=== PATIENT | female | born 1945 | race Caucasian/White ===

== ENCOUNTER 2019-11-21 18:47 | Emergency (ER) | payer MEDICARE ==
[~2019-11-21] VITALS: Ht 172.7 cm; Wt 159.1 kg
[~2019-11-21 18:47] MED LIST: AMIT-189 PO; LEVO125T PO; METF500T PO; PRED10TA23 PO; VALA500T41 PO; ZOLP10TA5 PO
[2019-11-21 19:17] LABS: BASOPHILS # (AUTO) 0.1 X10'3 (0-0.2); BASOPHILS % (AUTO) 0.8 % (0-1); EOSINOPHILS # (AUTO) 0.2 X10'3 (0-0.9); EOSINOPHILS % (AUTO) 2.6 % (0-6); HEMATOCRIT 41.6 % (35.0-45.0); HEMOGLOBIN 13.7 g/dl (12.0-16.0); LYMPHOCYTES # (AUTO) 1.7 X10'3 (1.1-4.8); LYMPHOCYTES % (AUTO) 18.9 % (21-51); MEAN CORPUSCULAR HGB CONC 32.9 g/dL (33.0-36.5); MEAN PLATELET VOLUME 9.2 FL (7.4-10.4); MONOCYTES # (AUTO) 0.8 X10'3 (0-0.9); MONOCYTES % (AUTO) 8.6 % (2-12); NEUTROPHILS # (AUTO) 6.1 X10'3 (1.8-7.7); NEUTROPHILS % (AUTO) 69.1 % (42-75); PLATELET COUNT 199 X10'3 (140-440); RED BLOOD COUNT 4.42 X10'6 (4.20-5.60); RED CELL DISTRIBUTION WIDTH 14.3 % (11.5-14.5); WHITE BLOOD COUNT 8.8 X10'3 (4.5-11.0)
[2019-11-21 19:27] LABS: CLARITY,URINE CLEAR (Clear); COLOR,URINE YELLOW (Yellow); GLUCOSE, URINE NEGATIVE (Neg); KETONES,URINE NEGATIVE (Neg); LEUKOCYTE ESTERASE ,URINE NEGATIVE (Neg); NITRITES, URINE NEGATIVE (Neg); OCCULT BLOOD,URINE NEGATIVE (Neg); PROTEIN,URINE NEGATIVE (Neg)
[2019-11-21 19:31] LABS: UA COLLECTION TYPE STRAIGHT CATH
[2019-11-21] MEDS ORDERED: fentaNYL/PF 50MCG/1 ML 2ML syringe IV ONE (19:35)
[2019-11-21 19:39] LABS: ALANINE AMINOTRANSFERASE 19 U/L (12-78); ALBUMIN/GLOBULIN RATIO 0.8 (1.1-1.5); ALKALINE PHOSPHATASE 111 IU/L (46-116); ANION GAP 4 (8-16); ASPARTATE AMINO TRANSFERASE 16 U/L (10-37); BLOOD UREA NITROGEN 11 MG/DL (7-18); BUN/CREATININE RATIO 12.4 (6.6-38.0); CALCIUM 9.3 MG/DL (8.5-10.1); CHLORIDE 105 MMOL/L (99-107); CREATININE 0.89 MG/DL (0.40-0.90); GLUCOSE 143 MG/DL (70-104); SODIUM 142 MMOL/L (135-145); TOTAL CARBON DIOXIDE 33.4 MMOL/L (24-32); TOTAL PROTEIN 6.8 G/DL (6.4-8.2); eGFR 62 ML/MIN
[2019-11-21] MEDS ORDERED: iohexol 350MG/ML 100ml bottle IV ONE (20:30)
[2019-11-21 20:43] LABS: PARTIAL THROMBOPLASTIN TIME 28 SECONDS (22-32)
[2019-11-21] MEDS ORDERED: HYDROcodone/acetaminophen 10/325mg tab PO ONE (21:20)
[2019-11-21] MEDS ORDERED: HYDR-4353 PO (21:47)
[2019-11-21 22:07] VITALS: BP 144/99
== END 2019-11-21 21:50 | disposition home or self-care (01) ==
LOC: ER 18:48
DX: J90 Pleural effusion, not elsewhere classified (principal); R10.31 Right lower quadrant pain; I48.91 Unspecified atrial fibrillation; I10 Essential (primary) hypertension; J45.909 Unspecified asthma, uncomplicated; E11.9 Type 2 diabetes mellitus without complications; Z90.49 Acquired absence of other specified parts of digestive tract; Z90.710 Acquired absence of both cervix and uterus; Z98.890 Other specified postprocedural states; Z88.5 Allergy status to narcotic agent; Z79.899 Other long term (current) drug therapy
CPT/HCPCS: 36415; 71045; 71275; 74176; 80053; 81003; 83605; 84145; 85025; 85610; 85730; 87040; 93005; 96374; 99285; J3010; Q9967; 87077; 87186

== ENCOUNTER 2020-10-14 18:24 | Emergency (ER) | payer BC, MEDICAID ==
[~2020-10-14] VITALS: Ht 172.7 cm; Wt 147.8 kg
--- NOTE | 2020-10-14 18:52 | NUR ---
PT DIDNT WANT GURJARAD, REQUEST TO STAY IN W/C.
[2020-10-14] MEDS ORDERED: SELE120S3 TOP (21:01)
[2020-10-14] MEDS ORDERED: TERB250T4 PO (21:01)
[2020-10-14 21:09] VITALS: BP 120/83
== END 2020-10-14 21:11 | disposition home or self-care (01) ==
LOC: ER 18:24
DX: B35.0 Tinea barbae and tinea capitis (principal); I48.91 Unspecified atrial fibrillation; I10 Essential (primary) hypertension; J45.909 Unspecified asthma, uncomplicated; E11.9 Type 2 diabetes mellitus without complications; Z90.49 Acquired absence of other specified parts of digestive tract; Z90.710 Acquired absence of both cervix and uterus; Z98.890 Other specified postprocedural states; Z85.3 Personal history of malignant neoplasm of breast; Z88.8 Allergy status to other drugs, medicaments and biological substances; Z88.5 Allergy status to narcotic agent; Z79.84 Long term (current) use of oral hypoglycemic drugs; Z79.899 Other long term (current) drug therapy
CPT/HCPCS: 99284

== ENCOUNTER 2021-09-07 16:04 | Inpatient (IN) | payer MEDICARE, MEDICAID ==
[~2021-09-07] VITALS: Ht 172.7 cm; Wt 153.6 kg
[~2021-09-07 16:04] MED LIST changes: +SELE120S3 TOP
[2021-09-07 17:43] LABS: BASOPHILS % (AUTO) 0.7 % (0-1); EOSINOPHILS # (AUTO) 0.3 X10'3 (0-0.9); EOSINOPHILS % (AUTO) 3.6 % (0-6); HEMATOCRIT 39.9 % (35.0-45.0); HEMOGLOBIN 13.1 g/dl (12.0-16.0); LYMPHOCYTES # (AUTO) 1.3 X10'3 (1.1-4.8); LYMPHOCYTES % (AUTO) 18.2 % (21-51); MEAN CORPUSCULAR HEMOGLOBIN 30.6 PG (27.0-31.0); MEAN CORPUSCULAR HGB CONC 32.7 g/dL (33.0-36.5); MEAN CORPUSCULAR VOLUME 93.5 FL (78-98); MEAN PLATELET VOLUME 8.5 FL (7.4-10.4); MONOCYTES # (AUTO) 0.8 X10'3 (0-0.9); MONOCYTES % (AUTO) 10.4 % (2-12); NEUTROPHILS # (AUTO) 4.9 X10'3 (1.8-7.7); NEUTROPHILS % (AUTO) 67.1 % (42-75); PLATELET COUNT 201 X10'3 (140-440); RED BLOOD COUNT 4.27 X10'6 (4.20-5.60); RED CELL DISTRIBUTION WIDTH 15.4 % (11.5-14.5); WHITE BLOOD COUNT 7.2 X10'3 (4.5-11.0)
[2021-09-07 17:55] LABS: D-DIMER 1.95 MG/L FEU (0-0.50)
[2021-09-07 17:57] LABS: ALANINE AMINOTRANSFERASE 14 U/L (12-78); ALBUMIN 2.9 G/DL (3.4-5.0); ALBUMIN/GLOBULIN RATIO 0.8 (1.1-1.5); ALKALINE PHOSPHATASE 86 IU/L (46-116); ANION GAP 5 (8-16); ASPARTATE AMINO TRANSFERASE 13 U/L (10-37); BILIRUBIN,TOTAL 0.5 MG/DL (0.1-1.0); BLOOD UREA NITROGEN 10 MG/DL (7-18); BUN/CREATININE RATIO 13.5 (6.6-38.0); CALCIUM 8.8 MG/DL (8.5-10.1); CHLORIDE 105 MMOL/L (99-107); CREATININE 0.74 MG/DL (0.40-0.90); GLUCOSE 105 MG/DL (70-104); SODIUM 144 MMOL/L (135-145); TOTAL CARBON DIOXIDE 34.3 MMOL/L (24-32); TOTAL PROTEIN 6.5 G/DL (6.4-8.2); eGFR 77 ML/MIN
[2021-09-07] MEDS ORDERED: iohexol 350MG/ML 100ml bottle IV ONE (18:03)
[2021-09-07] MEDS ORDERED: furosemide 10 MG/1 ML 10ml inj IV ONE (20:05)
[2021-09-07] MEDS ORDERED: potassium Cl 20 mEq SR tablet PO PRN ×2 (23:25)
[2021-09-07] MEDS ORDERED: DEXTROSE 15 GM of carb/4 tabs (each vial/BOTTLE has 4 tablets) PO PRN ×2 (23:25)
[2021-09-07] MEDS ORDERED: dextrose 50%-water 50ml dispensing syringe IV PRN ×2 (23:25)
[2021-09-07] MEDS ORDERED: glucagon, human recombinant 1mg kit SUBCUT PRN (23:25)
[2021-09-07] MEDS ORDERED: insulin Lispro (HumaLOG) vial - multi-dose SQ SCH (23:25)
[2021-09-07] MEDS ORDERED: ondansetron/PF 4mg/2ml inj IV PRN (23:25)
[2021-09-07] MEDS ORDERED: potassium CL 10mEq/100ml bag 100 ML IV PRN (23:25)
[2021-09-07] MEDS ORDERED: magnesium 4gm in 100ml NS 100 ML IV PRN (23:25)
[2021-09-07] MEDS ORDERED: acetaminophen 325mg tablet PO PRN (23:25)
[2021-09-07] MEDS ORDERED: magnesium 2GM in 50ml NS 50 ML IV PRN (23:25)
[2021-09-07] MEDS ORDERED: MESSAGE TO PHARMACY PO ONE (23:25)
[2021-09-07] MEDS ORDERED: magnesium Cl slow-release 64mg tablet PO PRN (23:25)
[2021-09-07] MEDS ORDERED: PERFLUTREN PROTEIN-A MICROSPHR (Optison) 0.22 MG/ML 3ML VIAL IV PRN (23:25)
[2021-09-08 03:21] LABS: BASOPHILS % (AUTO) 0.3 % (0-1); EOSINOPHILS # (AUTO) 0.3 X10'3 (0-0.9); EOSINOPHILS % (AUTO) 4.5 % (0-6); HEMATOCRIT 40.4 % (35.0-45.0); HEMOGLOBIN 13.1 g/dl (12.0-16.0); LYMPHOCYTES # (AUTO) 1.2 X10'3 (1.1-4.8); LYMPHOCYTES % (AUTO) 18.3 % (21-51); MEAN CORPUSCULAR HGB CONC 32.4 g/dL (33.0-36.5); MEAN CORPUSCULAR VOLUME 92.5 FL (78-98); MEAN PLATELET VOLUME 8.3 FL (7.4-10.4); MONOCYTES # (AUTO) 0.6 X10'3 (0-0.9); MONOCYTES % (AUTO) 9.5 % (2-12); NEUTROPHILS # (AUTO) 4.5 X10'3 (1.8-7.7); NEUTROPHILS % (AUTO) 67.4 % (42-75); PLATELET COUNT 189 X10'3 (140-440); RED BLOOD COUNT 4.36 X10'6 (4.20-5.60); RED CELL DISTRIBUTION WIDTH 15.4 % (11.5-14.5); WHITE BLOOD COUNT 6.6 X10'3 (4.5-11.0)
[2021-09-08 03:42] LABS: ALANINE AMINOTRANSFERASE 15 U/L (12-78); ALKALINE PHOSPHATASE 92 IU/L (46-116); ANION GAP 7 (8-16); ASPARTATE AMINO TRANSFERASE 12 U/L (10-37); BILIRUBIN,TOTAL 0.7 MG/DL (0.1-1.0); BLOOD UREA NITROGEN 9 MG/DL (7-18); BUN/CREATININE RATIO 11.7 (6.6-38.0); CALCIUM 8.6 MG/DL (8.5-10.1); CHLORIDE 102 MMOL/L (99-107); CREATININE 0.77 MG/DL (0.40-0.90); GLUCOSE 127 MG/DL (70-104); MAGNESIUM 1.9 MG/DL (1.5-2.4); POTASSIUM 4.2 MMOL/L (3.5-5.1); SODIUM 146 MMOL/L (135-145); TOTAL PROTEIN 6.1 G/DL (6.4-8.2); eGFR 73 ML/MIN
[2021-09-08] MEDS ORDERED: GABA-530 PO (04:55)
[2021-09-08] MEDS ORDERED: HYDR-3686 PO (04:55)
[2021-09-08] MEDS ORDERED: BUDE10.2 PO (04:55)
[2021-09-08] MEDS ORDERED: LEVO175T7 PO (04:55)
[2021-09-08] MEDS ORDERED: SOTA80TA10 PO (04:55)
[2021-09-08] MEDS ORDERED: DICL75TA28 PO (04:55)
[2021-09-08] MEDS ORDERED: APIX5TAB3 PO (04:55)
[2021-09-08] MEDS: K and/or MAG REPLACEMENT MC SCH ×2 (08:00→20:00)
[2021-09-08] MEDS: apixaban 5mg tablet PO SCH ×2 (08:25→21:29)
--- NOTE | 2021-09-08 08:56 | NUR ---
called pharmacy regarding med due betapace.
[2021-09-08] MEDS: sotalol 80mg tablet PO SCH ×2 (09:08→21:26)
[2021-09-08] MEDS ORDERED: baclofen 10mg tablet PO PRN (09:40)
[2021-09-08] MEDS: furosemide 40mg/4ml inj IV SCH ×2 (10:23→21:26)
--- NOTE | 2021-09-08 10:45 | NUR ---
Dr. Caldwell at bedside.
--- NOTE | 2021-09-08 12:25 | NUR ---
PT ON A HOSPITAL BED, AWAKE,VISITOR AT BEDSIDE.
[2021-09-08] MEDS ORDERED: POTA-192 PO (12:32)
[2021-09-08] MEDS ORDERED: DILT180C49 PO (12:33)
[2021-09-08] MEDS ORDERED: FURO20TA4 PO (12:33)
[2021-09-08] MEDS ORDERED: FERR-29 PO (12:36)
[2021-09-08] MEDS ORDERED: ASPI-103 PO (12:36)
[2021-09-08] MEDS ORDERED: ZINC50TA67 PO (12:38)
[2021-09-08] MEDS ORDERED: ACET-1084 PO (12:38)
[2021-09-08] MEDS ORDERED: VITA-268 PO (12:40)
[2021-09-08] MEDS ORDERED: CHOL200074 PO (12:40)
[2021-09-08] MEDS ORDERED: CALC600T62 PO (12:44)
[2021-09-08] MEDS ORDERED: MAGN250T11 PO (12:44)
[2021-09-08] MEDS ORDERED: UBID50TA3 PO (12:44)
[2021-09-08] MEDS ORDERED: RED600CA2 PO (12:44)
[2021-09-08] MEDS ORDERED: ondansetron 4mg rapidly disintigrating tab PO PRN (16:25)
[2021-09-08 18:00] VITALS: BP 125/53
--- NOTE | 2021-09-08 18:55 | NUR ---
Patient in room PCU 3017. I have received report from [facility] and had the opportunity to ask questions and assume patient care.
[2021-09-08] MEDS: insulin glargine (Lantus) pen - multi-dose SQ SCH (21:00)
[2021-09-08] MEDS: zolpidem 5mg tablet PO PRN (21:27)
[2021-09-08 22:00] VITALS: BP 136/75
[2021-09-09 02:00] VITALS: BP 99/75
[2021-09-09 06:00] VITALS: BP 131/69
--- NOTE | 2021-09-09 07:02 | NUR ---
Problems reprioritized. Patient report given, questions answered & plan of care reviewed with Inessa PAIGE.
[2021-09-09 07:21] LABS: ALANINE AMINOTRANSFERASE 14 U/L (12-78); ALBUMIN/GLOBULIN RATIO 0.8 (1.1-1.5); ALKALINE PHOSPHATASE 96 IU/L (46-116); ANION GAP 4 (8-16); ASPARTATE AMINO TRANSFERASE 23 U/L (10-37); BILIRUBIN,TOTAL 0.7 MG/DL (0.1-1.0); BLOOD UREA NITROGEN 10 MG/DL (7-18); BUN/CREATININE RATIO 15.2 (6.6-38.0); CALCIUM 8.8 MG/DL (8.5-10.1); CHLORIDE 104 MMOL/L (99-107); CREATININE 0.66 MG/DL (0.40-0.90); GLUCOSE 126 MG/DL (70-104); MAGNESIUM 2.1 MG/DL (1.5-2.4); POTASSIUM 4.5 MMOL/L (3.5-5.1); SODIUM 145 MMOL/L (135-145); TOTAL CARBON DIOXIDE 37.4 MMOL/L (24-32); TOTAL PROTEIN 6.8 G/DL (6.4-8.2); eGFR 88 ML/MIN
[2021-09-09 07:25] LABS: BASOPHILS % (AUTO) 0.7 % (0-1); EOSINOPHILS # (AUTO) 0.3 X10'3 (0-0.9); EOSINOPHILS % (AUTO) 4.5 % (0-6); HEMATOCRIT 43.2 % (35.0-45.0); HEMOGLOBIN 13.7 g/dl (12.0-16.0); LYMPHOCYTES # (AUTO) 1.2 X10'3 (1.1-4.8); LYMPHOCYTES % (AUTO) 19.5 % (21-51); MEAN CORPUSCULAR HEMOGLOBIN 29.7 PG (27.0-31.0); MEAN CORPUSCULAR HGB CONC 31.7 g/dL (33.0-36.5); MEAN CORPUSCULAR VOLUME 93.6 FL (78-98); MEAN PLATELET VOLUME 8.8 FL (7.4-10.4); MONOCYTES # (AUTO) 0.6 X10'3 (0-0.9); MONOCYTES % (AUTO) 9.4 % (2-12); NEUTROPHILS % (AUTO) 65.9 % (42-75); PLATELET COUNT 178 X10'3 (140-440); RED BLOOD COUNT 4.61 X10'6 (4.20-5.60); RED CELL DISTRIBUTION WIDTH 15.4 % (11.5-14.5); WHITE BLOOD COUNT 6.1 X10'3 (4.5-11.0)
[2021-09-09] MEDS: K and/or MAG REPLACEMENT MC SCH ×2 (08:00→19:31)
[2021-09-09] MEDS ORDERED: PERFLUTREN PROTEIN-A MICROSPHR (Optison) 0.22 MG/ML 3ML VIAL IV PRN (08:15)
[2021-09-09] MEDS: furosemide 40mg/4ml inj IV SCH ×2 (08:17→19:59)
[2021-09-09] MEDS: sotalol 80mg tablet PO SCH ×2 (08:17→19:59)
[2021-09-09] MEDS: apixaban 5mg tablet PO SCH ×2 (08:17→19:59)
[2021-09-09 11:00] VITALS: BP 124/62
--- NOTE | 2021-09-09 11:59 | NUR ---
O2 Sat at rest on room air:_86__% If below 89%: Recovery O2 Sat at rest on _2__LPM:___%:_94__% via__nasal cannula (mask/nasal cannula, etc..) No further documentation is necessary. If O2 Sat did not drop below 89% on room air,ambulate patient on room air. O2 Sat while ambulating on room air:___% Recovery O2 Sat while ambulating on ___LPM:___% No further documentation is necessary. If patient does not drop below 89% while ambulating, he/she does not qualify for home O2.
[2021-09-09] MEDS: magnesium hydroxide 30ml (MOM) UD suspension PO PRN (15:38)
[2021-09-09 16:00] VITALS: BP 109/61
[2021-09-09 18:00] VITALS: BP 115/64
--- NOTE | 2021-09-09 18:16 | NUR ---
Problems reprioritized. Patient report given, questions answered & plan of care reviewed with Prudence RN.
--- NOTE | 2021-09-09 18:25 | NUR ---
Patient in room PCU 3017. I have received report from KAY PAIGE and had the opportunity to ask questions and assume patient care.
[2021-09-09] MEDS: docusate sod 100mg capsule PO SCH (19:59)
[2021-09-09] MEDS: insulin glargine (Lantus) pen - multi-dose SQ SCH (21:00)
[2021-09-09] MEDS: zolpidem 5mg tablet PO PRN (21:18)
[2021-09-09 22:00] VITALS: BP 154/86
[2021-09-10] VITALS (38 sets, daily range): BP systolic 108–158; BP diastolic 48–88
--- NOTE | 2021-09-10 06:19 | NUR ---
Problems reprioritized. Patient report given, questions answered & plan of care reviewed with KAY PAIGE.
[2021-09-10 06:51] LABS: BASOPHILS # (AUTO) 0.1 X10'3 (0-0.2); BASOPHILS % (AUTO) 0.9 % (0-1); EOSINOPHILS # (AUTO) 0.2 X10'3 (0-0.9); EOSINOPHILS % (AUTO) 3.2 % (0-6); HEMATOCRIT 42.2 % (35.0-45.0); HEMOGLOBIN 13.9 g/dl (12.0-16.0); LYMPHOCYTES # (AUTO) 1.2 X10'3 (1.1-4.8); LYMPHOCYTES % (AUTO) 19.3 % (21-51); MEAN CORPUSCULAR HEMOGLOBIN 30.7 PG (27.0-31.0); MEAN CORPUSCULAR HGB CONC 33.1 g/dL (33.0-36.5); MEAN PLATELET VOLUME 8.6 FL (7.4-10.4); MONOCYTES # (AUTO) 0.6 X10'3 (0-0.9); MONOCYTES % (AUTO) 9.9 % (2-12); NEUTROPHILS # (AUTO) 4.1 X10'3 (1.8-7.7); NEUTROPHILS % (AUTO) 66.7 % (42-75); PLATELET COUNT 181 X10'3 (140-440); RED BLOOD COUNT 4.54 X10'6 (4.20-5.60); RED CELL DISTRIBUTION WIDTH 14.9 % (11.5-14.5); WHITE BLOOD COUNT 6.2 X10'3 (4.5-11.0)
[2021-09-10 07:24] LABS: ALANINE AMINOTRANSFERASE 18 U/L (12-78); ALBUMIN/GLOBULIN RATIO 0.8 (1.1-1.5); ALKALINE PHOSPHATASE 99 IU/L (46-116); ANION GAP 6 (8-16); ASPARTATE AMINO TRANSFERASE 20 U/L (10-37); BILIRUBIN,TOTAL 0.8 MG/DL (0.1-1.0); BLOOD UREA NITROGEN 10 MG/DL (7-18); BUN/CREATININE RATIO 16.9 (6.6-38.0); CALCIUM 8.5 MG/DL (8.5-10.1); CHLORIDE 103 MMOL/L (99-107); CREATININE 0.59 MG/DL (0.40-0.90); GLUCOSE 124 MG/DL (70-104); MAGNESIUM 2.2 MG/DL (1.5-2.4); SODIUM 147 MMOL/L (135-145); TOTAL CARBON DIOXIDE 38.3 MMOL/L (24-32); TOTAL PROTEIN 6.9 G/DL (6.4-8.2); eGFR > 90 ML/MIN
[2021-09-10] MEDS ORDERED: morphine 10mg/ml inj. IV ONE (07:50)
[2021-09-10] MEDS ORDERED: MIDAZolam 5mg/ml 2ml vial IV ONE (07:50)
[2021-09-10] MEDS: K and/or MAG REPLACEMENT MC SCH ×2 (08:00→20:00)
[2021-09-10] MEDS: sotalol 80mg tablet PO SCH (08:00)
[2021-09-10] MEDS ORDERED: midazolam 1 mg/ML 2ml injection IV ONE (08:10)
[2021-09-10] MEDS ORDERED: fentaNYL/PF 50MCG/1 ML 2ML syringe IV ONE (08:10)
[2021-09-10] MEDS ORDERED: amiodarone 50MG/ML inj IV ONE (09:05)
[2021-09-10] MEDS ORDERED: amiodarone 150mg/dext, iso-os 100 ML IV ONE (09:05)
[2021-09-10] MEDS: furosemide 40mg/4ml inj IV SCH ×2 (10:21→21:19)
--- NOTE | 2021-09-10 11:33 | NUR ---
while almost finished monitoring patient after cardio version, she started to have intermittent periods of apnea where she needs to be woken up. This stated about 15 minutes ago, I will wait with patient to see if she improves. Addendum: 09/10/21 at 1157 by Chandrika Aguilar RN patient doing well, no more apnea periods so far.
[2021-09-10] MEDS: apixaban 5mg tablet PO SCH ×2 (13:20→21:16)
[2021-09-10] MEDS: docusate sod 100mg capsule PO SCH ×2 (13:20→21:07)
--- NOTE | 2021-09-10 18:20 | NUR ---
Problems reprioritized. Patient report given, questions answered & plan of care reviewed with Caroline PAIGE.
[2021-09-10] MEDS: carvedilol 6.25mg tablet PO SCH ×2 (20:00→22:43)
[2021-09-10] MEDS: amiodarone 200mg tablet PO SCH (20:00)
[2021-09-10] MEDS: insulin glargine (Lantus) pen - multi-dose SQ SCH (21:00)
[2021-09-10] MEDS: magnesium hydroxide 30ml (MOM) UD suspension PO PRN (21:06)
[2021-09-10] MEDS: zolpidem 5mg tablet PO PRN (21:08)
[2021-09-11 02:00] VITALS: BP 128/43
[2021-09-11 06:00] VITALS: BP 126/48
--- NOTE | 2021-09-11 06:09 | NUR ---
Report to day shift RN.
[2021-09-11 06:30] LABS: BASOPHILS % (AUTO) 0.4 % (0-1); EOSINOPHILS # (AUTO) 0.1 X10'3 (0-0.9); EOSINOPHILS % (AUTO) 1.4 % (0-6); HEMATOCRIT 40.6 % (35.0-45.0); HEMOGLOBIN 13.5 g/dl (12.0-16.0); LYMPHOCYTES # (AUTO) 0.5 X10'3 (1.1-4.8); LYMPHOCYTES % (AUTO) 8.1 % (21-51); MEAN CORPUSCULAR HEMOGLOBIN 30.4 PG (27.0-31.0); MEAN CORPUSCULAR HGB CONC 33.3 g/dL (33.0-36.5); MEAN CORPUSCULAR VOLUME 91.3 FL (78-98); MEAN PLATELET VOLUME 8.6 FL (7.4-10.4); MONOCYTES # (AUTO) 0.6 X10'3 (0-0.9); MONOCYTES % (AUTO) 10.4 % (2-12); NEUTROPHILS # (AUTO) 4.7 X10'3 (1.8-7.7); NEUTROPHILS % (AUTO) 79.7 % (42-75); PLATELET COUNT 147 X10'3 (140-440); RED BLOOD COUNT 4.45 X10'6 (4.20-5.60); RED CELL DISTRIBUTION WIDTH 14.9 % (11.5-14.5); WHITE BLOOD COUNT 5.9 X10'3 (4.5-11.0)
[2021-09-11 06:33] LABS: ALANINE AMINOTRANSFERASE 18 U/L (12-78); ALBUMIN 2.9 G/DL (3.4-5.0); ALBUMIN/GLOBULIN RATIO 0.8 (1.1-1.5); ALKALINE PHOSPHATASE 90 IU/L (46-116); ASPARTATE AMINO TRANSFERASE 23 U/L (10-37); BILIRUBIN,TOTAL 1.2 MG/DL (0.1-1.0); BLOOD UREA NITROGEN 12 MG/DL (7-18); BUN/CREATININE RATIO 15.6 (6.6-38.0); CALCIUM 8.7 MG/DL (8.5-10.1); CHLORIDE 96 MMOL/L (99-107); CREATININE 0.77 MG/DL (0.40-0.90); GLUCOSE 164 MG/DL (70-104); MAGNESIUM 2.2 MG/DL (1.5-2.4); POTASSIUM 3.8 MMOL/L (3.5-5.1); SODIUM 141 MMOL/L (135-145); TOTAL PROTEIN 6.7 G/DL (6.4-8.2); eGFR 73 ML/MIN
[2021-09-11 06:43] LABS: ANION GAP 6 (8-16); TOTAL CARBON DIOXIDE 38.7 MMOL/L (24-32)
[2021-09-11] MEDS: carvedilol 6.25mg tablet PO SCH (07:43)
[2021-09-11] MEDS: docusate sod 100mg capsule PO SCH (07:44)
[2021-09-11] MEDS: amiodarone 200mg tablet PO SCH (07:44)
[2021-09-11] MEDS: furosemide 40mg/4ml inj IV SCH (07:44)
[2021-09-11] MEDS: apixaban 5mg tablet PO SCH (07:44)
[2021-09-11] MEDS: K and/or MAG REPLACEMENT MC SCH (08:00)
[2021-09-11 11:00] VITALS: BP 116/46
[2021-09-11] MEDS ORDERED: FURO20TA4 PO (13:31)
[2021-09-11] MEDS ORDERED: ZOLP5TAB8 PO (13:31)
[2021-09-11] MEDS ORDERED: CARV6.253 PO (13:31)
[2021-09-11] MEDS ORDERED: AMIO200T67 PO (13:31)
[2021-09-11] MEDS ORDERED: AMIO200T61 PO ×2 (13:31)
--- NOTE | 2021-09-11 14:20 | NUR ---
home medications and prescriptions were given and explained to patient prior to dishcarge. Stable for discharge as per MD. PIV discontinued with iv cannula tip complete and intact.
== END 2021-09-11 14:46 | disposition home health service (06) | DRG 291 ==
LOC: ER 16:04 → ED HOLD 23:24 → EDBEDREQ 09-08 01:55 → PCU 3S 09-08 16:49
PROVIDERS: ADMIT Internal Medicine; ATTEND Family Medicine
PROC: B32T1ZZ Computerized Tomography (CT Scan) of Left Pulmonary Artery using Low Osmolar Contrast (ICD-10-PCS; 2021-09-07)
PROC: B3201ZZ Computerized Tomography (CT Scan) of Thoracic Aorta using Low Osmolar Contrast (ICD-10-PCS; 2021-09-07)
PROC: B32S1ZZ Computerized Tomography (CT Scan) of Right Pulmonary Artery using Low Osmolar Contrast (ICD-10-PCS; 2021-09-07)
PROC: 5A2204Z Restoration of Cardiac Rhythm, Single (ICD-10-PCS; principal; 2021-09-10)
PROC: B24CZZ4 Ultrasonography of Pericardium, Transesophageal (ICD-10-PCS; 2021-09-10)
DX: I11.0 Hypertensive heart disease with heart failure (principal); J96.01 Acute respiratory failure with hypoxia; I50.31 Acute diastolic (congestive) heart failure; I48.19 Other persistent atrial fibrillation; I47.1 Supraventricular tachycardia; Z68.43 Body mass index [BMI] 50.0-59.9, adult; E87.0 Hyperosmolality and hypernatremia; G93.40 Encephalopathy, unspecified; I27.20 Pulmonary hypertension, unspecified; E66.01 Morbid (severe) obesity due to excess calories; Z66 Do not resuscitate; Z20.822 Contact with and (suspected) exposure to COVID-19; E11.9 Type 2 diabetes mellitus without complications; E78.5 Hyperlipidemia, unspecified; E89.0 Postprocedural hypothyroidism; I09.9 Rheumatic heart disease, unspecified; J45.909 Unspecified asthma, uncomplicated; R25.2 Cramp and spasm; G47.33 Obstructive sleep apnea (adult) (pediatric); M17.0 Bilateral primary osteoarthritis of knee; I07.1 Rheumatic tricuspid insufficiency; R29.6 Repeated falls; Z79.01 Long term (current) use of anticoagulants; Z82.49 Family history of ischemic heart disease and other diseases of the circulatory system; Z85.3 Personal history of malignant neoplasm of breast; Z87.891 Personal history of nicotine dependence; Z90.11 Acquired absence of right breast and nipple; Z90.49 Acquired absence of other specified parts of digestive tract; Z90.710 Acquired absence of both cervix and uterus; Z91.81 History of falling; Z99.3 Dependence on wheelchair; Z88.5 Allergy status to narcotic agent; Z88.8 Allergy status to other drugs, medicaments and biological substances; Z79.899 Other long term (current) drug therapy; Z98.42 Cataract extraction status, left eye; Z98.41 Cataract extraction status, right eye
CPT/HCPCS: 36415; 71045; 71275; 80053; 82948; 83036; 83735; 83880; 84443; 84484; 85025; 85379; 87081; 87635; 93005; 93312; 94799; 96374; 97161; 97530; 99285; C9803; G0378; J0282; J1815; J1940; J2250; J3010; Q9967

== ENCOUNTER 2021-10-30 06:32 | Day surgery (SDC) | payer MEDICARE, MEDICAID ==
[2021-10-29 15:17] LABS: BASOPHILS # (AUTO) 0.1 X10'3 (0-0.2); BASOPHILS % (AUTO) 0.7 % (0-1); EOSINOPHILS # (AUTO) 0.2 X10'3 (0-0.9); EOSINOPHILS % (AUTO) 2.6 % (0-6); HEMATOCRIT 41.7 % (35.0-45.0); HEMOGLOBIN 13.6 g/dl (12.0-16.0); LYMPHOCYTES # (AUTO) 1.1 X10'3 (1.1-4.8); LYMPHOCYTES % (AUTO) 15.4 % (21-51); MEAN CORPUSCULAR HEMOGLOBIN 30.1 PG (27.0-31.0); MEAN CORPUSCULAR HGB CONC 32.6 g/dL (33.0-36.5); MEAN CORPUSCULAR VOLUME 92.5 FL (78-98); MEAN PLATELET VOLUME 9.3 FL (7.4-10.4); MONOCYTES # (AUTO) 0.6 X10'3 (0-0.9); MONOCYTES % (AUTO) 8.8 % (2-12); NEUTROPHILS # (AUTO) 5.1 X10'3 (1.8-7.7); NEUTROPHILS % (AUTO) 72.5 % (42-75); PLATELET COUNT 120 X10'3 (140-440); RED BLOOD COUNT 4.51 X10'6 (4.20-5.60); RED CELL DISTRIBUTION WIDTH 14.9 % (11.5-14.5)
[2021-10-29 15:26] LABS: ALBUMIN 2.9 G/DL (3.4-5.0); ANION GAP 0 (8-16); BLOOD UREA NITROGEN 10 MG/DL (7-18); BUN/CREATININE RATIO 14.1 (6.6-38.0); CALCIUM 8.8 MG/DL (8.5-10.1); CHLORIDE 105 MMOL/L (99-107); CREATININE 0.71 MG/DL (0.40-0.90); GLUCOSE 86 MG/DL (70-104); POTASSIUM 3.8 MMOL/L (3.5-5.1); SODIUM 144 MMOL/L (135-145); TOTAL CARBON DIOXIDE 39.4 MMOL/L (24-32); eGFR 80 ML/MIN
[~2021-10-30] VITALS: Ht 172.7 cm; Wt 139.8 kg
[2021-10-30] VITALS (28 sets, daily range): BP systolic 91–133; BP diastolic 48–82
[~2021-10-30 06:32] MED LIST changes: +ACET-1084 PO; +AMIO200T67 PO; +APIX5TAB3 PO; +CALC600T62 PO; +CARV6.253 PO; +CHOL200074 PO; +FERR-29 PO; +FURO20TA4 PO; +GABA-530 PO; +HYDR-3686 PO; -LEVO125T PO; +LEVO175T7 PO; +MAGN250T11 PO; +POTA-192 PO; -PRED10TA23 PO; +RED600CA2 PO; -SELE120S3 TOP; +UBID50TA3 PO; -VALA500T41 PO; +VITA-268 PO; +ZINC50TA67 PO; -ZOLP10TA5 PO; +ZOLP5TAB8 PO
[2021-10-30] MEDS ORDERED: MIDAZolam 1mg/ml 10ml vial IV ONE ×2 (07:05→07:25)
[2021-10-30] MEDS ORDERED: fentaNYL/PF 50MCG/1 ML 2ML syringe IV ONE (07:05)
[2021-10-30] MEDS ORDERED: amiodarone 50MG/ML inj IV ONE (07:15)
[2021-10-30] MEDS ORDERED: diphenhydrAMINE 50 mg/ml inj IV ONE (07:15)
[2021-10-30] MEDS ORDERED: atropine 0.1mg/ml 10ml syringe IV ONE ×4 (07:25→10:00)
[2021-10-30] MEDS ORDERED: LORazepam 0.5 MG tablet PO ONE (07:25)
[2021-10-30] MEDS ORDERED: FURO40TA4 PO (07:33)
[2021-10-30] MEDS ORDERED: AMIO200T61 PO (07:33)
[2021-10-30] MEDS ORDERED: CARV6.253 PO (07:33)
[2021-10-30] MEDS ORDERED: ZOLP10TA PO (07:33)
[2021-10-30] MEDS ORDERED: VITC500T PO (07:38)
[2021-10-30] MEDS ORDERED: BUDE10.27 (07:38)
[2021-10-30] MEDS ORDERED: OMEG1CAP2 (07:38)
[2021-10-30] MEDS ORDERED: amiodarone 150mg/dext, iso-os 100 ML IV ONE (07:40)
[2021-10-30] MEDS ORDERED: diphenhydrAMINE 25mg capsule PO ONE ×2 (07:45)
[2021-10-30] MEDS ORDERED: atropine 1 MG/1 ML vial IV ONE (09:50)
== END 2021-10-30 11:15 | disposition home or self-care (01) ==
LOC: SSTAY O 06:32
PROVIDERS: ATTEND Internal Medicine Cardiovascular Disease
DX: I48.0 Paroxysmal atrial fibrillation (principal); E11.9 Type 2 diabetes mellitus without complications; E66.9 Obesity, unspecified; Z68.43 Body mass index [BMI] 50.0-59.9, adult; J45.909 Unspecified asthma, uncomplicated; F32.A Depression, unspecified; M13.89 Other specified arthritis, multiple sites; I10 Essential (primary) hypertension; E03.9 Hypothyroidism, unspecified; E78.5 Hyperlipidemia, unspecified; Z88.5 Allergy status to narcotic agent; Z90.710 Acquired absence of both cervix and uterus; Z98.890 Other specified postprocedural states; Z98.41 Cataract extraction status, right eye; Z98.42 Cataract extraction status, left eye; Z90.49 Acquired absence of other specified parts of digestive tract; Z86.718 Personal history of other venous thrombosis and embolism; Z82.49 Family history of ischemic heart disease and other diseases of the circulatory system
CPT/HCPCS: 36415; 80048; 85025; 85610; 92960; 93005; 94799

== ENCOUNTER 2021-11-30 22:34 | Emergency (ER) | payer MEDICARE, MEDICAID ==
[~2021-11-30] VITALS: Ht 172.7 cm; Wt 140.0 kg
[~2021-11-30 22:34] MED LIST changes: -ACET-1084 PO; +AMIO200T61 PO; -AMIO200T67 PO; +BUDE10.27; -CALC600T62 PO; -CHOL200074 PO; -FERR-29 PO; -FURO20TA4 PO; +FURO40TA4 PO; -MAGN250T11 PO; +OMEG1CAP2; -UBID50TA3 PO; +VITC500T PO; -ZINC50TA67 PO; +ZOLP10TA PO; -ZOLP5TAB8 PO
[2021-11-30 22:40] VITALS: BP 128/69
[2021-12-01 03:09] LABS: CLARITY,URINE CLOUDY (Clear); COLOR,URINE BROWN (Yellow); GLUCOSE, URINE NEGATIVE (Neg); KETONES,URINE 15 mg/dl (Neg); LEUKOCYTE ESTERASE ,URINE TRACE (Neg); NITRITES, URINE NEGATIVE (Neg); OCCULT BLOOD,URINE LARGE (Neg); PH,URINE 5.5 (4.8-8.0); PROTEIN,URINE 100 mg/dl (Neg)
[2021-12-01 03:10] LABS: UA COLLECTION TYPE CLN CATCH MIDSTREAM
[2021-12-01 03:25] LABS: BACTERIA,URINE 1+ /HPF (Neg); MUCUS STRANDS NONE SEEN /LPF (Neg); RBC,URINE TNTC /HPF (0-2); SQUAMOUS EPITHELIAL CELL,UR FEW /LPF (FEW); WBC,URINE 0-4 /HPF (0-4)
[2021-12-01 03:28] LABS: CAL OXALATE CRYSTALS 2+ /HPF (NEGATIVE)
[2021-12-01] MEDS ORDERED: CEPH-585 PO (05:13)
== END 2021-12-01 05:30 | disposition home or self-care (01) ==
LOC: ER 22:34
DX: N39.0 Urinary tract infection, site not specified (principal); R31.9 Hematuria, unspecified; R42 Dizziness and giddiness; I48.91 Unspecified atrial fibrillation; E78.00 Pure hypercholesterolemia, unspecified; I10 Essential (primary) hypertension; J45.909 Unspecified asthma, uncomplicated; E11.9 Type 2 diabetes mellitus without complications; E03.9 Hypothyroidism, unspecified; G89.29 Other chronic pain; Z85.3 Personal history of malignant neoplasm of breast; Z90.49 Acquired absence of other specified parts of digestive tract; Z90.710 Acquired absence of both cervix and uterus; Z88.8 Allergy status to other drugs, medicaments and biological substances; Z88.5 Allergy status to narcotic agent; Z79.82 Long term (current) use of aspirin; Z79.899 Other long term (current) drug therapy
CPT/HCPCS: 74176; 81001; 87088; 99284

== ENCOUNTER 2022-03-06 12:50 | Inpatient (IN) | payer MEDICARE, MEDICAID ==
[~2022-03-06] VITALS: Ht 172.7 cm; Wt 147.7 kg
[~2022-03-06 12:50] MED LIST changes: +CEPH-585 PO
--- NOTE | 2022-03-06 13:50 | NUR ---
PT STATES, " I HAVENT BEEN EATING MUCH BECAUSE I WANT TO LOSE WT. PEOPLE ARE ALWAYS STARRING AT ME"
--- NOTE | 2022-03-06 13:51 | NUR ---
HASNT BEEN EATING WELL FOR PAST WEEK AND 1/2.
[2022-03-06 14:55] LABS: BASOPHILS % (AUTO) 0.3 % (0-1); EOSINOPHILS # (AUTO) 0.1 X10'3 (0-0.9); EOSINOPHILS % (AUTO) 1.8 % (0-6); HEMATOCRIT 37.9 % (35.0-45.0); HEMOGLOBIN 12.6 g/dl (12.0-16.0); LYMPHOCYTES # (AUTO) 1.1 X10'3 (1.1-4.8); LYMPHOCYTES % (AUTO) 14.7 % (21-51); MEAN CORPUSCULAR HEMOGLOBIN 32.7 PG (27.0-31.0); MEAN CORPUSCULAR HGB CONC 33.3 g/dL (33.0-36.5); MEAN PLATELET VOLUME 9.3 FL (7.4-10.4); MONOCYTES # (AUTO) 0.7 X10'3 (0-0.9); MONOCYTES % (AUTO) 9.5 % (2-12); NEUTROPHILS # (AUTO) 5.4 X10'3 (1.8-7.7); NEUTROPHILS % (AUTO) 73.7 % (42-75); PLATELET COUNT 119 X10'3 (140-440); RED BLOOD COUNT 3.87 X10'6 (4.20-5.60); RED CELL DISTRIBUTION WIDTH 13.2 % (11.5-14.5); WHITE BLOOD COUNT 7.4 X10'3 (4.5-11.0)
[2022-03-06 15:09] LABS: ALANINE AMINOTRANSFERASE 14 U/L (12-78); ALBUMIN 2.5 G/DL (3.4-5.0); ALBUMIN/GLOBULIN RATIO 0.7 (1.1-1.5); ALKALINE PHOSPHATASE 101 IU/L (46-116); ASPARTATE AMINO TRANSFERASE 20 U/L (10-37); BILIRUBIN,TOTAL 0.6 MG/DL (0.1-1.0); BLOOD UREA NITROGEN 17 MG/DL (7-18); CALCIUM 9.1 MG/DL (8.5-10.1); CHLORIDE 96 MMOL/L (99-107); CREATININE 0.74 MG/DL (0.40-0.90); GLUCOSE 128 MG/DL (70-104); POTASSIUM 3.5 MMOL/L (3.5-5.1); SODIUM 145 MMOL/L (135-145); TOTAL PROTEIN 5.9 G/DL (6.4-8.2); eGFR 77 ML/MIN
[2022-03-06 15:12] LABS: MAGNESIUM 1.7 MG/DL (1.5-2.4)
[2022-03-06 15:22] LABS: TOTAL CARBON DIOXIDE > 50 MMOL/L (24-32)
[2022-03-06] MEDS ORDERED: normal saline 1000ML IV soln IVB ONE (15:55)
[2022-03-06 16:00] LABS: ABG HCO3 66.6 mmol/L (22.0-26.0); ABG OXYGEN SATURATION 95.5 % (94-97); ABG PCO2 (T) 120.8 mmHg (32.0-45.0); ABG PO2 (T) 82.4 mmHg (75.0-100.0); ALLEN'S TEST POSITIVE; FCOHb 1.6 % (0.0-3.9); FLOW 3 L/min; FMetHb 0.2 % (0.0-1.5); FO2Hb 93.8 % (94-97); TOTAL HEMOGLOBIN 13.5 G/dl (12.0-16.0)
[2022-03-06] MEDS ORDERED: LORazepam 2 mg/ml vial IV ONE (16:15)
[2022-03-06] MEDS ORDERED: ipratropium/albuterol 3ml nebule NEB PRN (16:25)
[2022-03-06] MEDS ORDERED: POTASSIUM BICARB 20meq eff tab 20 MEQ TABLET.EFF PO PRN (16:25)
[2022-03-06] MEDS ORDERED: magnesium 2GM in 50ml NS 50 ML IV PRN (16:25)
[2022-03-06] MEDS ORDERED: LORazepam 2 mg/ml vial IV PRN (16:25)
[2022-03-06] MEDS ORDERED: LORazepam 1 MG tablet PO PRN (16:25)
[2022-03-06] MEDS ORDERED: metoclopramide 5 mg/ml inj IV PRN (16:25)
[2022-03-06] MEDS ORDERED: magnesium hydroxide 30ml (MOM) UD suspension PO PRN (16:25)
[2022-03-06] MEDS ORDERED: HYDROcodone/acetaminophen 10/325mg tab PO PRN (16:25)
[2022-03-06] MEDS ORDERED: potassium CL 10mEq/100ml bag 100 ML IV PRN (16:25)
[2022-03-06] MEDS ORDERED: HYDROcodone/acetaminophen 5mg/325mg tablet PO PRN (16:25)
[2022-03-06] MEDS ORDERED: bisacodyl 10mg suppository rectal RC PRN (16:25)
[2022-03-06] MEDS ORDERED: ondansetron 4mg rapidly disintigrating tab PO PRN (16:25)
[2022-03-06] MEDS ORDERED: acetaminophen 325mg tablet PO PRN ×2 (16:25)
[2022-03-06] MEDS ORDERED: magnesium 4gm in 100ml NS 100 ML IV PRN (16:25)
[2022-03-06] MEDS ORDERED: magnesium Cl slow-release 64mg tablet PO PRN (16:25)
[2022-03-06] MEDS ORDERED: ondansetron/PF 4mg/2ml inj IV PRN (16:25)
[2022-03-06] MEDS ORDERED: mag hydrox/Alum hydrox/simeth 30ml oral suspension PO PRN (16:25)
[2022-03-06] MEDS ORDERED: UBID300C PO (16:44)
[2022-03-06] MEDS ORDERED: LEVO125T8 PO (16:44)
[2022-03-06] MEDS ORDERED: ZINC50CA2 PO (16:44)
[2022-03-06] MEDS ORDERED: FERR-39 PO (16:44)
[2022-03-06] MEDS ORDERED: CALC600T22 PO (16:44)
[2022-03-06] MEDS ORDERED: LIOT25TA12 PO (16:44)
[2022-03-06] MEDS ORDERED: CHOL20004 PO (16:44)
[2022-03-06] MEDS ORDERED: MAGN250T11 PO (16:44)
[2022-03-06 17:16] LABS: CLARITY,URINE CLEAR (Clear); COLOR,URINE YELLOW (Yellow); GLUCOSE, URINE NEGATIVE (Neg); KETONES,URINE NEGATIVE (Neg); LEUKOCYTE ESTERASE ,URINE NEGATIVE (Neg); NITRITES, URINE NEGATIVE (Neg); OCCULT BLOOD,URINE NEGATIVE (Neg); PROTEIN,URINE NEGATIVE (Neg)
[2022-03-06 17:17] LABS: UA COLLECTION TYPE FOLEY CATH
[2022-03-06] MEDS ORDERED: dextrose 50%-water 50ml dispensing syringe IV PRN ×2 (17:45)
[2022-03-06] MEDS ORDERED: glucagon, human recombinant 1mg kit SUBCUT PRN (17:45)
[2022-03-06] MEDS ORDERED: insulin Lispro (HumaLOG) vial - multi-dose SQ SCH (17:45)
[2022-03-06] MEDS ORDERED: DEXTROSE 15 GM of carb/4 tabs (each vial/BOTTLE has 4 tablets) PO PRN ×2 (17:45)
[2022-03-06] MEDS ORDERED: MESSAGE TO PHARMACY PO ONE (17:45)
[2022-03-06 17:47] LABS: POTASSIUM 3.3 MMOL/L (3.5-5.1)
--- NOTE | 2022-03-06 17:52 | NUR ---
EPISODE X1 DESAT TO 70'S. PT REPOSITIONED, RT CALLED AND DR. BURGOS AT BEDSIDE. RT HERE PLACED PT ON 100% BIPAP, 02 SAT 100%.
[2022-03-06 18:06] LABS: ABG BASE EXCESS 20.5 mmol/L (-2.0-2.0); ABG HCO3 51.3 mmol/L (22.0-26.0); ABG OXYGEN SATURATION 98.4 % (94-97); ABG PCO2 (T) 92.8 mmHg (32.0-45.0); ABG PO2 (T) 143.4 mmHg (75.0-100.0); ALLEN'S TEST POSITIVE; FCOHb 1.3 % (0.0-3.9); FMetHb 0.1 % (0.0-1.5); PATIENT TEMPERATURE 36.6; RESPIRATORY RATE 10 b/min; TIDAL VOLUME 536 mL; TOTAL HEMOGLOBIN 13.5 G/dl (12.0-16.0)
[2022-03-06 19:19] LABS: HEMOGLOBIN A1C 6.3 % (4.5-6.2)
[2022-03-06 19:46] LABS: URINE AMPHETAMINE SCREEN NEGATIVE (Neg); URINE BARBITUATE SCREEN NEGATIVE (Neg); URINE BENZODIAZEPINES SCREEN NEGATIVE (Neg); URINE CANNABINOID SCREEN NEGATIVE (Neg); URINE COCAINE SCREEN NEGATIVE (Neg); URINE METHADONE SCREEN NEGATIVE (Neg); URINE OPIATE SCREEN NEGATIVE (Neg); URINE PHENCYCLIDINE SCREEN NEGATIVE (Neg)
[2022-03-06] MEDS: K and/or MAG REPLACEMENT MC SCH (20:00)
[2022-03-06] MEDS: carvedilol 6.25mg tablet PO SCH (20:28)
[2022-03-06] MEDS: apixaban 5mg tablet PO SCH (20:28)
[2022-03-06] MEDS: docusate sod 100mg capsule PO SCH (20:28)
[2022-03-06] MEDS: amitriptyline 50mg tablet PO SCH (20:29)
[2022-03-06] MEDS: insulin glargine (Lantus) pen - multi-dose SQ SCH (20:57)
[2022-03-06] MEDS ORDERED: zolpidem 5mg tablet PO SCH (21:00)
[2022-03-06] MEDS ORDERED: temazepam 15mg capsule PO PRN (21:00)
[2022-03-06] MEDS ORDERED: hydrOXYzine 25 MG tablet PO SCH (21:00)
[2022-03-06] MEDS ORDERED: gabapentin 100mg capsule PO SCH (21:00)
--- NOTE | 2022-03-06 21:09 | NUR ---
Pt. and were educated that pt. is on a heart healthy and carb controlled diet and that it is not advisable to eat Wienerschnitzel.
[2022-03-06 22:00] VITALS: BP 121/68
[2022-03-07] MEDS ORDERED: heparin, porcine 5000 units/ml vial SQ SCH
--- NOTE | 2022-03-07 00:15 | NUR ---
Dr. Do notified via phone of pt decreased LOC. Sternal rub required for pt to open eyes. Pt unable to make eye contact, eyes fixed to back of head. STAT ABG ordered. RT notified.
[2022-03-07 00:35] LABS: ABG BASE EXCESS 25.2 mmol/L (-2.0-2.0); ABG HCO3 54.8 mmol/L (22.0-26.0); ABG OXYGEN SATURATION 96.7 % (94-97); ABG PCO2 (T) 82.3 mmHg (32.0-45.0); ABG PO2 (T) 86.3 mmHg (75.0-100.0); ALLEN'S TEST POSITIVE; FCOHb 1.6 % (0.0-3.9); FMetHb 0.2 % (0.0-1.5); PATIENT TEMPERATURE 36.4; RESPIRATORY RATE 18 b/min
--- NOTE | 2022-03-07 00:40 | NUR ---
Dr. Do notified of ABG results, no further interventions ordered. Will continue to monitor.
[2022-03-07 01:37] VITALS: BP 101/44
--- NOTE | 2022-03-07 04:06 | NUR ---
Pt spontaneously awakened, asking to take BIPAP mask off. Pt educated on importance of BIPAP ventilation at this time. When asked if pt understood why she needs the BIPAP mask, pt stated "yes". Pt resting comfortably in bed with BIPAP mask in place.
[2022-03-07 06:00] VITALS: BP 99/37
[2022-03-07 06:40] LABS: BASOPHILS % (AUTO) 0.4 % (0-1); EOSINOPHILS # (AUTO) 0.1 X10'3 (0-0.9); EOSINOPHILS % (AUTO) 2.7 % (0-6); HEMATOCRIT 35.3 % (35.0-45.0); HEMOGLOBIN 11.8 g/dl (12.0-16.0); LYMPHOCYTES % (AUTO) 18.1 % (21-51); MEAN CORPUSCULAR HEMOGLOBIN 32.9 PG (27.0-31.0); MEAN CORPUSCULAR HGB CONC 33.5 g/dL (33.0-36.5); MEAN CORPUSCULAR VOLUME 98.2 FL (78-98); MEAN PLATELET VOLUME 9.5 FL (7.4-10.4); MONOCYTES # (AUTO) 0.6 X10'3 (0-0.9); MONOCYTES % (AUTO) 10.2 % (2-12); NEUTROPHILS # (AUTO) 3.7 X10'3 (1.8-7.7); NEUTROPHILS % (AUTO) 68.6 % (42-75); PLATELET COUNT 110 X10'3 (140-440); RED CELL DISTRIBUTION WIDTH 13.3 % (11.5-14.5); WHITE BLOOD COUNT 5.4 X10'3 (4.5-11.0)
[2022-03-07 07:29] LABS: ALANINE AMINOTRANSFERASE 13 U/L (12-78); ALBUMIN 2.2 G/DL (3.4-5.0); ALBUMIN/GLOBULIN RATIO 0.7 (1.1-1.5); ALKALINE PHOSPHATASE 86 IU/L (46-116); ASPARTATE AMINO TRANSFERASE 20 U/L (10-37); BLOOD UREA NITROGEN 14 MG/DL (7-18); BUN/CREATININE RATIO 21.9 (6.6-38.0); CALCIUM 8.5 MG/DL (8.5-10.1); CHLORIDE 98 MMOL/L (99-107); CREATININE 0.64 MG/DL (0.40-0.90); GLUCOSE 100 MG/DL (70-104); MAGNESIUM 1.8 MG/DL (1.5-2.4); POTASSIUM 3.4 MMOL/L (3.5-5.1); SODIUM 147 MMOL/L (135-145); TOTAL PROTEIN 5.3 G/DL (6.4-8.2); eGFR 90 ML/MIN
[2022-03-07] MEDS: potassium chloride 10mEq ER tablet PO SCH (07:47)
[2022-03-07] MEDS: magnesium oxide 400mg tablet PO SCH (07:47)
[2022-03-07] MEDS: liothyronine sod 5mcg tablet PO SCH (07:47)
[2022-03-07] MEDS: carvedilol 6.25mg tablet PO SCH ×2 (07:47→20:00)
[2022-03-07] MEDS: levoTHYROXINE 125mcg tablet PO SCH (07:48)
[2022-03-07] MEDS: apixaban 5mg tablet PO SCH ×2 (07:48→21:05)
[2022-03-07] MEDS: docusate sod 100mg capsule PO SCH ×2 (07:48→21:05)
[2022-03-07] MEDS: furosemide 40mg tablet PO SCH (07:50)
[2022-03-07 07:59] LABS: ANION GAP 0 (8-16)
[2022-03-07] MEDS: K and/or MAG REPLACEMENT MC SCH ×2 (08:00→20:00)
[2022-03-07 08:02] LABS: TOTAL CARBON DIOXIDE 48.8 MMOL/L (24-32)
--- NOTE | 2022-03-07 09:27 | NUR ---
DM Consult: Pt hx T2DM A1C 6.3% appropriate at this time. Addendum: 03/07/22 at [address] Amended: Links added.
[2022-03-07 11:00] VITALS: BP 102/46
[2022-03-07] MEDS: POTASSIUM BICARB 20meq eff tab 20 MEQ TABLET.EFF PO PRN ×2 (11:50→16:26)
[2022-03-07 15:00] VITALS: BP 107/48
[2022-03-07 18:00] VITALS: BP 96/45
--- NOTE | 2022-03-07 18:20 | NUR ---
Patient in room PCU 3015. I have received report from Sudha RN and had the opportunity to ask questions and assume patient care.
--- NOTE | 2022-03-07 18:36 | NUR ---
Problems reprioritized. Patient report given, questions answered & plan of care reviewed with ROYAL Balderas.
[2022-03-07] MEDS: insulin glargine (Lantus) pen - multi-dose SQ SCH (21:00)
[2022-03-07] MEDS: amitriptyline 50mg tablet PO SCH (21:05)
--- NOTE | 2022-03-07 21:26 | NUR ---
Pt adv she will refuse bipap unless we give her a sleeping pill. Dr Do ordered meletonin 3mg tab po hs.
[2022-03-07] MEDS ORDERED: Melatonin 3mg tablet PO SCH (21:30)
[2022-03-07 22:00] VITALS: BP 98/38
[2022-03-07] MEDS ORDERED: Melatonin 3mg tablet PO PRN (22:00)
--- NOTE | 2022-03-07 22:17 | NUR ---
Pt complained of leg pain and requesting sleeping medication. Offered Tylenol and meletonin. Pt refused both as they are not what she wanted. Attempted to encourage pt to try but she continued to refuse meds and bipap and other pt care since the sleeping aid is not what she wanted.
--- NOTE | 2022-03-08 01:04 | NUR ---
sent page to RT to get bipap started per pt request
[2022-03-08 02:00] VITALS: BP 100/44
--- NOTE | 2022-03-08 03:29 | NUR ---
REVIEWED RN ADVANCED ASSESSMENT AND IN AGREEMENT.
[2022-03-08 06:00] VITALS: BP 105/55
--- NOTE | 2022-03-08 06:11 | NUR ---
Problems reprioritized. Patient report given, questions answered & plan of care reviewed with Sudha RN.
[2022-03-08] MEDS: liothyronine sod 5mcg tablet PO SCH (07:20)
[2022-03-08] MEDS: furosemide 40mg tablet PO SCH (07:20)
[2022-03-08] MEDS: docusate sod 100mg capsule PO SCH (07:20)
[2022-03-08] MEDS: potassium chloride 10mEq ER tablet PO SCH (07:21)
[2022-03-08] MEDS: carvedilol 6.25mg tablet PO SCH (07:21)
[2022-03-08] MEDS: levoTHYROXINE 125mcg tablet PO SCH (07:21)
[2022-03-08] MEDS: apixaban 5mg tablet PO SCH (07:21)
[2022-03-08] MEDS: magnesium oxide 400mg tablet PO SCH (08:00)
[2022-03-08] MEDS: K and/or MAG REPLACEMENT MC SCH (08:00)
[2022-03-08 08:27] LABS: BASOPHILS % (AUTO) 0.3 % (0-1); EOSINOPHILS # (AUTO) 0.1 X10'3 (0-0.9); EOSINOPHILS % (AUTO) 2.5 % (0-6); HEMATOCRIT 36.5 % (35.0-45.0); HEMOGLOBIN 12.2 g/dl (12.0-16.0); LYMPHOCYTES # (AUTO) 1.1 X10'3 (1.1-4.8); LYMPHOCYTES % (AUTO) 19.6 % (21-51); MEAN CORPUSCULAR HEMOGLOBIN 32.6 PG (27.0-31.0); MEAN CORPUSCULAR HGB CONC 33.5 g/dL (33.0-36.5); MEAN CORPUSCULAR VOLUME 97.2 FL (78-98); MEAN PLATELET VOLUME 9.2 FL (7.4-10.4); MONOCYTES # (AUTO) 0.6 X10'3 (0-0.9); MONOCYTES % (AUTO) 10.4 % (2-12); NEUTROPHILS # (AUTO) 3.7 X10'3 (1.8-7.7); NEUTROPHILS % (AUTO) 67.2 % (42-75); PLATELET COUNT 113 X10'3 (140-440); RED BLOOD COUNT 3.76 X10'6 (4.20-5.60); RED CELL DISTRIBUTION WIDTH 13.7 % (11.5-14.5); WHITE BLOOD COUNT 5.5 X10'3 (4.5-11.0)
[2022-03-08 08:54] LABS: ALANINE AMINOTRANSFERASE 13 U/L (12-78); ALBUMIN 2.2 G/DL (3.4-5.0); ALBUMIN/GLOBULIN RATIO 0.7 (1.1-1.5); ALKALINE PHOSPHATASE 89 IU/L (46-116); ASPARTATE AMINO TRANSFERASE 19 U/L (10-37); BLOOD UREA NITROGEN 14 MG/DL (7-18); BUN/CREATININE RATIO 21.2 (6.6-38.0); CALCIUM 8.4 MG/DL (8.5-10.1); CHLORIDE 97 MMOL/L (99-107); CREATININE 0.66 MG/DL (0.40-0.90); GLUCOSE 110 MG/DL (70-104); MAGNESIUM 1.9 MG/DL (1.5-2.4); POTASSIUM 3.4 MMOL/L (3.5-5.1); SODIUM 147 MMOL/L (135-145); TOTAL PROTEIN 5.5 G/DL (6.4-8.2); eGFR 87 ML/MIN
[2022-03-08 08:59] LABS: ANION GAP 2 (8-16)
[2022-03-08 09:22] LABS: ABG BASE EXCESS 24.8 mmol/L (-2.0-2.0); ABG HCO3 53.1 mmol/L (22.0-26.0); ABG OXYGEN SATURATION 95.2 % (94-97); ABG PCO2 (T) 71.9 mmHg (32.0-45.0); ABG PO2 (T) 73.4 mmHg (75.0-100.0); ALLEN'S TEST POSITIVE; FCOHb 0.8 % (0.0-3.9); FMetHb 0.2 % (0.0-1.5); FO2Hb 94.2 % (94-97); TOTAL HEMOGLOBIN 13.5 G/dl (12.0-16.0)
[2022-03-08 09:32] LABS: TOTAL CARBON DIOXIDE 48.1 MMOL/L (24-32)
[2022-03-08 11:00] VITALS: BP 116/57
[2022-03-08] MEDS ORDERED: IPRA3AMP9 NEB (11:50)
[2022-03-08] MEDS ORDERED: FURO40TA4 PO (11:52)
[2022-03-08 14:38] VITALS: BP 111/61
--- NOTE | 2022-03-08 15:45 | NUR ---
Pt discharged per MD Paredes. Trilegy delivered to pt, mask fitted. PIV and telemonitor removed. Pt wheeled down on pt's own wheelchair with all belongings including trilegy and dentures. Reviewed dc packet with pt and , answered all questions, reviewed medication list and follow up appts needed to be made- both verbalized understanding.
== END 2022-03-08 15:43 | disposition home health service (06) | DRG 189 ==
LOC: ER 12:50 → ED HOLD 16:33 → EDBEDREQ 21:15 → PCU 3S 21:47
PROVIDERS: ADMIT Family Medicine; ATTEND Family Medicine
PROC: 5A09357 Assistance with Respiratory Ventilation, Less than 24 Consecutive Hours, Continuous Positive Airway Pressure (ICD-10-PCS; principal; 2022-03-06)
PROC: 5A09357 Assistance with Respiratory Ventilation, Less than 24 Consecutive Hours, Continuous Positive Airway Pressure (ICD-10-PCS; 2022-03-07)
PROC: 5A09357 Assistance with Respiratory Ventilation, Less than 24 Consecutive Hours, Continuous Positive Airway Pressure (ICD-10-PCS; 2022-03-08)
DX: J96.21 Acute and chronic respiratory failure with hypoxia (principal); G93.41 Metabolic encephalopathy; E66.2 Morbid (severe) obesity with alveolar hypoventilation; Z68.42 Body mass index [BMI] 45.0-49.9, adult; J96.22 Acute and chronic respiratory failure with hypercapnia; E87.6 Hypokalemia; I48.91 Unspecified atrial fibrillation; D64.9 Anemia, unspecified; E11.9 Type 2 diabetes mellitus without complications; F41.1 Generalized anxiety disorder; G89.29 Other chronic pain; M54.9 Dorsalgia, unspecified; E78.00 Pure hypercholesterolemia, unspecified; E89.0 Postprocedural hypothyroidism; F32.A Depression, unspecified; I11.0 Hypertensive heart disease with heart failure; I50.9 Heart failure, unspecified; J45.909 Unspecified asthma, uncomplicated; Z79.01 Long term (current) use of anticoagulants; Z85.3 Personal history of malignant neoplasm of breast; Z87.891 Personal history of nicotine dependence; Z90.710 Acquired absence of both cervix and uterus; Z88.8 Allergy status to other drugs, medicaments and biological substances; Z90.49 Acquired absence of other specified parts of digestive tract; Z87.440 Personal history of urinary (tract) infections; Z99.81 Dependence on supplemental oxygen; Z79.899 Other long term (current) drug therapy
CPT/HCPCS: 36415; 36600; 70450; 71045; 80053; 80305; 81003; 82803; 82948; 83036; 83735; 84132; 84145; 84484; 85018; 85025; 87081; 93005; 94660; 94760; 94799; 99285; G0378; J1815; J2060; J7030; Q0177

== ENCOUNTER 2022-07-29 01:51 | Emergency (ER) | payer MEDICARE, MEDICAID ==
[~2022-07-29] VITALS: Ht 172.7 cm; Wt 141.4 kg
[~2022-07-29 01:51] MED LIST changes: -AMIO200T61 PO; -AMIT-189 PO; +AMIT50TA15 PO; -BUDE10.27; +CALC600T22 PO; -CEPH-585 PO; +CHOL20004 PO; +FERR-39 PO; +IPRA3AMP9 NEB; +LEVO125T8 PO; -LEVO175T7 PO; +LIOT25TA12 PO; +MAGN250T11 PO; -OMEG1CAP2; +UBID300C3 PO; +ZINC50CA2 PO
[2022-07-29 03:00] VITALS: BP 135/80
[2022-07-29] MEDS ORDERED: acetaminophen 325mg tablet PO ONE (04:05)
== END 2022-07-29 04:52 | disposition home or self-care (01) ==
LOC: ER 01:52
DX: S00.83XA Contusion of other part of head, initial encounter (principal); E78.00 Pure hypercholesterolemia, unspecified; I11.9 Hypertensive heart disease without heart failure; J45.909 Unspecified asthma, uncomplicated; E11.9 Type 2 diabetes mellitus without complications; E03.9 Hypothyroidism, unspecified; G89.29 Other chronic pain; M54.9 Dorsalgia, unspecified; Z90.49 Acquired absence of other specified parts of digestive tract; Z88.5 Allergy status to narcotic agent; Z88.8 Allergy status to other drugs, medicaments and biological substances; Z79.899 Other long term (current) drug therapy; Z79.1 Long term (current) use of non-steroidal anti-inflammatories (NSAID); Z79.2 Long term (current) use of antibiotics; Z79.82 Long term (current) use of aspirin; W18.39XA Other fall on same level, initial encounter; Y93.89 Activity, other specified; Y92.89 Other specified places as the place of occurrence of the external cause; Y99.8 Other external cause status
CPT/HCPCS: 70450; 72125; 99284

== ENCOUNTER 2022-10-17 01:04 | Emergency (ER) | payer MEDICARE, MEDICAID ==
[~2022-10-17] VITALS: Ht 172.7 cm; Wt 150.0 kg
[2022-10-17] MEDS ORDERED: acetaminophen 325mg tablet PO ONE (01:30)
[2022-10-17 03:50] VITALS: BP 159/79
== END 2022-10-17 03:53 | disposition home or self-care (01) ==
LOC: ER 01:04
DX: R51.9 Headache, unspecified (principal); E78.00 Pure hypercholesterolemia, unspecified; I10 Essential (primary) hypertension; J45.909 Unspecified asthma, uncomplicated; E11.9 Type 2 diabetes mellitus without complications; E03.9 Hypothyroidism, unspecified; Z88.5 Allergy status to narcotic agent; Z88.8 Allergy status to other drugs, medicaments and biological substances; Z90.710 Acquired absence of both cervix and uterus; W19.XXXA Unspecified fall, initial encounter; Y93.89 Activity, other specified; Y92.89 Other specified places as the place of occurrence of the external cause; Y99.8 Other external cause status
CPT/HCPCS: 70450; 72125; 93005; 99284

== ENCOUNTER 2023-07-08 20:57 | Emergency (ER) | payer MEDICARE, MEDICAID ==
[~2023-07-08] VITALS: Ht 172.7 cm; Wt 142.7 kg
[2023-07-08 21:05] VITALS: TEMP 98.9
[2023-07-08 21:35] LABS: BASOPHILS # (AUTO) 0.1 X10'3 (0-0.2); BASOPHILS % (AUTO) 0.9 % (0-1); EOSINOPHILS # (AUTO) 0.2 X10'3 (0-0.9); EOSINOPHILS % (AUTO) 2.4 % (0-6); HEMATOCRIT 39.7 % (35.0-45.0); HEMOGLOBIN 13.4 g/dl (12.0-16.0); LYMPHOCYTES # (AUTO) 1.6 X10'3 (1.1-4.8); LYMPHOCYTES % (AUTO) 21.6 % (21-51); MEAN CORPUSCULAR HEMOGLOBIN 31.7 PG (27.0-31.0); MEAN CORPUSCULAR HGB CONC 33.9 g/dL (33.0-36.5); MEAN CORPUSCULAR VOLUME 93.8 FL (78-98); MEAN PLATELET VOLUME 8.6 FL (7.4-10.4); MONOCYTES # (AUTO) 0.7 X10'3 (0-0.9); MONOCYTES % (AUTO) 9.6 % (2-12); NEUTROPHILS % (AUTO) 65.5 % (42-75); PLATELET COUNT 198 X10'3 (140-440); RED BLOOD COUNT 4.23 X10'6 (4.20-5.60); RED CELL DISTRIBUTION WIDTH 14.3 % (11.5-14.5); WHITE BLOOD COUNT 7.6 X10'3 (4.5-11.0)
[2023-07-08 21:49] VITALS: BP 128/69; PULSE 110; O2SAT 93
[2023-07-08 22:08] LABS: ALANINE AMINOTRANSFERASE 15 U/L (12-78); ALBUMIN 2.9 G/DL (3.4-5.0); ALBUMIN/GLOBULIN RATIO 0.8 (1.1-1.5); ALKALINE PHOSPHATASE 100 IU/L (46-116); ANION GAP -2 (8-16); ASPARTATE AMINO TRANSFERASE 19 U/L (10-37); BILIRUBIN,TOTAL 1.1 MG/DL (0.1-1.0); BLOOD UREA NITROGEN 11 MG/DL (7-18); BUN/CREATININE RATIO 11.3 (10.0-20.0); CALCIUM 9.5 MG/DL (8.5-10.1); CHLORIDE 97 MMOL/L (99-107); CREATININE 0.97 MG/DL (0.40-0.90); GLUCOSE 148 MG/DL (70-104); PRO BRAIN NATRIURETIC PEPTIDE 1024 PG/ML (0-450); SODIUM 137 MMOL/L (135-145); TOTAL PROTEIN 6.5 G/DL (6.4-8.2); eCRCL 50 ML/MIN; eGFR 56 ML/MIN
[2023-07-08 22:10] LABS: TOTAL CARBON DIOXIDE 42.3 MMOL/L (24-32)
[2023-07-08] MEDS ORDERED: potassium Cl 20 mEq SR tablet PO STA (23:04)
[2023-07-08] MEDS ORDERED: LIDOcaine Viscous 15ml cup MM ONE (23:05)
[2023-07-08] MEDS ORDERED: famotidine 20mg tablet PO ONE (23:05)
[2023-07-08] MEDS ORDERED: furosemide 10 MG/1 ML 10ml inj IM ONE (23:05)
[2023-07-08] MEDS ORDERED: pantoprazole 40mg Tablet.DR PO ONE (23:05)
[2023-07-08] MEDS ORDERED: ondansetron 4mg rapidly disintigrating tab PO ONE (23:05)
[2023-07-08] MEDS ORDERED: mag hydrox/Alum hydrox/simeth 30ml oral suspension PO ONE (23:05)
[2023-07-08 23:06] VITALS: RESP 20
[2023-07-08 23:20] LABS: MAGNESIUM 1.8 MG/DL (1.5-2.4)
[2023-07-09] MEDS ORDERED: PANT-47 PO (00:04)
[2023-07-09] MEDS ORDERED: furosemide 20MG tablet PO ONE (00:05)
== END 2023-07-09 00:32 | disposition home or self-care (01) ==
LOC: ER 20:59
DX: R07.89 Other chest pain (principal); E78.00 Pure hypercholesterolemia, unspecified; I10 Essential (primary) hypertension; J45.909 Unspecified asthma, uncomplicated; E11.9 Type 2 diabetes mellitus without complications; E03.9 Hypothyroidism, unspecified; Z88.5 Allergy status to narcotic agent; Z79.899 Other long term (current) drug therapy; Z90.49 Acquired absence of other specified parts of digestive tract; Z90.710 Acquired absence of both cervix and uterus
CPT/HCPCS: 36415; 71045; 80053; 83735; 83880; 84484; 85025; 93005; 99285; J1940

== ENCOUNTER 2023-12-11 08:56 | Outpatient (CLI) | payer MEDICARE, MEDICAID ==
[~2023-12-11 08:56] MED LIST changes: +AMIT-274 PO; +CEPH250C PO; +FLUO-331 PO; +FLUT1BLS3 INH; +GABAPENTIN; +LORA10TA7 PO; +METO5TAB7 PO; +PANT-47 PO; +PANT40TA54 PO; +ZOLPIDEM
[2023-12-11 09:43] LABS: ALANINE AMINOTRANSFERASE 19 U/L (12-78); ALBUMIN 2.7 G/DL (3.4-5.0); ALBUMIN/GLOBULIN RATIO 0.8 (1.1-1.5); ALKALINE PHOSPHATASE 65 IU/L (46-116); ANION GAP 3 (8-16); ASPARTATE AMINO TRANSFERASE 19 U/L (10-37); BILIRUBIN,TOTAL 0.9 MG/DL (0.1-1.0); BLOOD UREA NITROGEN 16 MG/DL (7-18); BUN/CREATININE RATIO 22.5 (10.0-20.0); CALCIUM 9.9 MG/DL (8.5-10.1); CHLORIDE 100 MMOL/L (99-107); CREATININE 0.71 MG/DL (0.40-0.90); GLUCOSE 126 MG/DL (70-104); SODIUM 146 MMOL/L (135-145); TOTAL PROTEIN 5.9 G/DL (6.4-8.2); eGFR 80 ML/MIN
[2023-12-11 09:47] LABS: BASOPHILS % (AUTO) 0.7 % (0-1); EOSINOPHILS # (AUTO) 0.2 X10'3 (0-0.9); EOSINOPHILS % (AUTO) 4.4 % (0-6); HEMATOCRIT 39.3 % (35.0-45.0); LYMPHOCYTES # (AUTO) 1.5 X10'3 (1.1-4.8); LYMPHOCYTES % (AUTO) 26.2 % (21-51); MEAN CORPUSCULAR HEMOGLOBIN 30.9 PG (27.0-31.0); MEAN CORPUSCULAR HGB CONC 33.2 g/dL (33.0-36.5); MEAN PLATELET VOLUME 9.2 FL (7.4-10.4); MONOCYTES # (AUTO) 0.5 X10'3 (0-0.9); MONOCYTES % (AUTO) 9.1 % (2-12); NEUTROPHILS # (AUTO) 3.3 X10'3 (1.8-7.7); NEUTROPHILS % (AUTO) 59.6 % (42-75); PLATELET COUNT 147 X10'3 (140-440); RED BLOOD COUNT 4.22 X10'6 (4.20-5.60); RED CELL DISTRIBUTION WIDTH 15.7 % (11.5-14.5); WHITE BLOOD COUNT 5.6 X10'3 (4.5-11.0)
[2023-12-11 09:57] LABS: TOTAL CARBON DIOXIDE 43.3 MMOL/L (24-32)
[2023-12-11 10:16] LABS: HEMOGLOBIN A1C 5.2 % (4.5-6.2)
[2023-12-13 12:23] LABS: CREATININE, URINE 30.9 mg/dL (Not Estab.); MICROALB/CRT, RATIO <10 mg/g creat (0-29); MICROALBUMIN,U,RANDOM <3.0 ug/mL (Not Estab.)
== END 2023-12-11 23:59 | disposition home or self-care (01) ==
LOC: LAB 08:56
PROVIDERS: ATTEND General Practice
DX: I48.0 Paroxysmal atrial fibrillation (principal); E11.9 Type 2 diabetes mellitus without complications; B96.1 Klebsiella pneumoniae [K. pneumoniae] as the cause of diseases classified elsewhere; Z79.899 Other long term (current) drug therapy
CPT/HCPCS: 36415; 80053; 82043; 82570; 83036; 85025

== ENCOUNTER 2024-08-08 06:19 | Inpatient (IN) | payer MEDICARE, MEDICAID ==
[~2024-08-08] VITALS: Ht 170.2 cm; Wt 126.3 kg
[2024-08-08] VITALS (48 sets, daily range): BP systolic 83–170; BP diastolic 40–99; PULSE 76–124; RESP 14–22; O2SAT 95–100
[~2024-08-08 06:19] MED LIST changes: -AMIT50TA15 PO
[2024-08-08] MEDS: normal saline 1000ML IV soln IV ONE (06:45)
[2024-08-08 06:59] LABS: ABG BASE EXCESS 1.9 mmol/L (-2.0-3.0); ABG HCO3 32.5 mmol/L (21.0-28.0); ABG OXYGEN SATURATION 92.5 % (94.0-98.0); ABG PCO2 (T) 91.8 mmHg (32.0-45.0); ABG PH (T) 7.167 (7.350-7.450); ABG PO2 (T) 77.9 mmHg (83.0-108.0); ALLEN'S TEST POSITIVE; FCOHb 0.3 % (0.5-1.5); FHHb 7.4 % (0.0-5.0); FLOW 5 L/min; FMetHb 0.7 % (0.0-1.5); FO2Hb 91.6 % (94.0-98.0); MODE NASAL CANNULA; TOTAL HEMOGLOBIN 10.9 G/dl (12.0-16.0)
[2024-08-08] MEDS: NORepinephrine 8mg/ 250ml NS 250 ML IV ONE (07:15)
[2024-08-08] MEDS: NORepinephrine 8mg/ 250ml NS 250 ML IV SCH (07:15)
[2024-08-08] MEDS: albuterol 2.5 MG/3 ML nebule NEB ONE (07:25)
[2024-08-08 07:32] LABS: ALANINE AMINOTRANSFERASE 17 U/L (12-78); ALBUMIN 2.3 G/DL (3.4-5.0); ALBUMIN/GLOBULIN RATIO 0.7 (1.1-1.5); ALKALINE PHOSPHATASE 72 IU/L (46-116); ANION GAP 5 (8-16); ASPARTATE AMINO TRANSFERASE 23 U/L (10-37); BILIRUBIN,TOTAL 0.5 MG/DL (0.1-1.0); BLOOD UREA NITROGEN 24 MG/DL (7-18); BUN/CREATININE RATIO 19.8 (10.0-20.0); CALCIUM 8.3 MG/DL (8.5-10.1); CHLORIDE 102 MMOL/L (99-107); CREATININE 1.21 MG/DL (0.40-0.90); ETHANOL < 10 MG/DL (<10); GLUCOSE 136 MG/DL (70-104); LIPASE 16 U/L (16-77); MAGNESIUM 1.6 MG/DL (1.5-2.4); POTASSIUM 3.4 MMOL/L (3.5-5.1); SODIUM 141 MMOL/L (135-145); TOTAL CARBON DIOXIDE 34.2 MMOL/L (24-32); TOTAL PROTEIN 5.5 G/DL (6.4-8.2); eCRCL 38 ML/MIN; eGFR 43 ML/MIN
[2024-08-08 07:44] LABS: BASOPHILS % (AUTO) 0.2 % (0-1); EOSINOPHILS % (AUTO) 0.3 % (0-6); HEMATOCRIT 31.2 % (35.0-45.0); HEMOGLOBIN 9.4 g/dl (12.0-16.0); LYMPHOCYTES % (AUTO) 5.5 % (21-51); MEAN CORPUSCULAR HGB CONC 30.2 g/dL (33.0-36.5); MEAN CORPUSCULAR VOLUME 99.2 FL (78-98); MEAN PLATELET VOLUME 9.2 FL (7.4-10.4); MONOCYTES % (AUTO) 5.1 % (2-12); NEUTROPHILS # (AUTO) 16.7 X10'3 (1.8-7.7); NEUTROPHILS % (AUTO) 88.9 % (42-75); PLATELET COUNT 164 X10'3 (140-440); RED BLOOD COUNT 3.15 X10'6 (4.20-5.60); RED CELL DISTRIBUTION WIDTH 14.3 % (11.5-14.5); WHITE BLOOD COUNT 18.8 X10'3 (4.5-11.0)
[2024-08-08] MEDS: normal saline 1000ml 1,000 ML IV SCH ×2 (07:50→10:53)
[2024-08-08] MEDS ORDERED: rocuronium 10mg/ml inj IV ONE (08:00)
[2024-08-08] MEDS: methylPREDNISolone sod succ 125mg/2ml vial IV ONE (08:01)
[2024-08-08] MEDS: propofol 1000mg/100ml bottle 0 ML IV ONE (08:01)
[2024-08-08] MEDS ORDERED: magnesium hydroxide 30ml (MOM) UD suspension PO PRN (08:20)
[2024-08-08] MEDS ORDERED: ondansetron/PF 4mg/2ml inj IV PRN (08:20)
[2024-08-08] MEDS ORDERED: morphine 4 MG/ML inj SYRINge IV PRN (08:20)
[2024-08-08] MEDS ORDERED: acetaminophen 325mg tablet PO PRN ×2 (08:20)
[2024-08-08] MEDS: CEFEPIME 2gm in D5W 50mL 50 ML IV SCH (08:25)
[2024-08-08 08:55] LABS: ABG BASE EXCESS -1.9 mmol/L (-2.0-3.0); ABG HCO3 28.3 mmol/L (21.0-28.0); ABG OXYGEN SATURATION 96.9 % (94.0-98.0); ABG PCO2 (T) 79.8 mmHg (32.0-45.0); ABG PH (T) 7.166 (7.350-7.450); ABG PO2 (T) 104.2 mmHg (83.0-108.0); ALLEN'S TEST POSITIVE; FCOHb 0.2 % (0.5-1.5); FHHb 3.1 % (0.0-5.0); FMetHb 0.5 % (0.0-1.5); FO2Hb 96.2 % (94.0-98.0); MODE MASK - BIPAP; PATIENT TEMPERATURE 36.7; RESPIRATORY RATE 22 b/min; TIDAL VOLUME 346 mL; TOTAL HEMOGLOBIN 11.8 G/dl (12.0-16.0)
[2024-08-08 08:58] LABS: BILIRUBIN,URINE NEGATIVE (Neg); CLARITY,URINE CLEAR (Clear); COLOR,URINE YELLOW (Yellow); GLUCOSE, URINE NEGATIVE (Neg); KETONES,URINE NEGATIVE (Neg); LEUKOCYTE ESTERASE ,URINE NEGATIVE (Neg); NITRITES, URINE NEGATIVE (Neg); OCCULT BLOOD,URINE NEGATIVE (Neg); PH,URINE 5.5 (4.8-8.0); PROTEIN,URINE NEGATIVE (Neg); UROBILINOGEN,URINE 0.2 E.U/dL (0.2-1.0)
[2024-08-08 09:04] LABS: UA COLLECTION TYPE STRAIGHT CATH
[2024-08-08 09:15] LABS: URINE AMPHETAMINE SCREEN NEGATIVE (Neg); URINE BARBITUATE SCREEN NEGATIVE (Neg); URINE BENZODIAZEPINES SCREEN NEGATIVE (Neg); URINE CANNABINOID SCREEN NEGATIVE (Neg); URINE COCAINE SCREEN NEGATIVE (Neg); URINE METHADONE SCREEN NEGATIVE (Neg); URINE OPIATE SCREEN NEGATIVE (Neg); URINE PHENCYCLIDINE SCREEN NEGATIVE (Neg)
[2024-08-08] MEDS: propofol 1000mg/100ml bottle 100 ML IV ONE (09:27)
[2024-08-08] MEDS: propofol 1000mg/100ml bottle 100 ML IV SCH (09:31)
[2024-08-08] MEDS: COMMUNICATION ORDER 1 EA MISC MC ONE (10:00)
[2024-08-08] MEDS: LidoCAINE 2% Topical Jelly 11mL syringe (UROJET) TOP ONE (10:51)
[2024-08-08] MEDS: FENTANYL-0.9 % NACL/PF 100 ML IV SCH (10:55)
[2024-08-08 11:15] LABS: ALBUMIN 2.6 G/DL (3.4-5.0); ANION GAP 6 (8-16); BLOOD UREA NITROGEN 24 MG/DL (7-18); BUN/CREATININE RATIO 21.8 (10.0-20.0); CALCIUM 8.8 MG/DL (8.5-10.1); CHLORIDE 102 MMOL/L (99-107); GLUCOSE 140 MG/DL (70-104); SODIUM 138 MMOL/L (135-145); TOTAL CARBON DIOXIDE 29.9 MMOL/L (24-32); eCRCL 42 ML/MIN; eGFR 48 ML/MIN
[2024-08-08 11:21] LABS: POTASSIUM 3.7 MMOL/L (3.5-5.1)
[2024-08-08] MEDS: ipratropium/albuterol 3ml nebule NEB SCH (12:00)
[2024-08-08] MEDS: normal saline 1000ml 1,000 ML IV ONE ×3 (12:53→16:40)
[2024-08-08 15:11] LABS: ABG BASE EXCESS 2.8 mmol/L (-2.0-3.0); ABG HCO3 25.6 mmol/L (21.0-28.0); ABG OXYGEN SATURATION 97.4 % (94.0-98.0); ABG PH (T) 7.509 (7.350-7.450); ABG PO2 (T) 84.8 mmHg (83.0-108.0); ALLEN'S TEST POSITIVE; FCOHb 0.5 % (0.5-1.5); FHHb 2.6 % (0.0-5.0); FO2Hb 96.9 % (94.0-98.0); MODE VENT - APRV; PATIENT TEMPERATURE 36.9; PEEP 5 cm H2O; RESPIRATORY RATE 18 b/min; TIDAL VOLUME 450 mL; TOTAL HEMOGLOBIN 10.6 G/dl (12.0-16.0)
[2024-08-08] MEDS ORDERED: magnesium sulf-water 4G/100mL 100 ML IV PRN (15:20)
[2024-08-08] MEDS ORDERED: potassium Cl 40MEQ/1/2NS 520ml 520 ML IV PRN (15:20)
[2024-08-08] MEDS ORDERED: magnesium sulf-water 2g/50mL 50 ML IV PRN (15:20)
[2024-08-08] MEDS ORDERED: MAGN400C PO (16:51)
[2024-08-08] MEDS ORDERED: LIOT5TAB10 PO (16:51)
[2024-08-08] MEDS ORDERED: CARV3.122 PO (16:51)
[2024-08-08] MEDS ORDERED: [UNRECOGNIZED DRUG - CODE] PO (16:51)
[2024-08-08] MEDS ORDERED: MELA5TAB12 PO (16:51)
[2024-08-08] MEDS ORDERED: LEVO150T8 PO (16:51)
[2024-08-08] MEDS ORDERED: FURO-150 PO (16:51)
[2024-08-08] MEDS ORDERED: ZINC220C7 PO (16:51)
[2024-08-08] MEDS ORDERED: ZOLP5TAB8 PO (16:51)
[2024-08-08] MEDS: famotidine/PF 10 mg/ml inj IV SCH (19:31)
[2024-08-08] MEDS: apixaban 5mg tablet PO SCH (19:31)
[2024-08-08] MEDS: K and/or MAG REPLACEMENT MC SCH (19:32)
[2024-08-08] MEDS: carvedilol 6.25mg tablet PO SCH (19:32)
[2024-08-09] VITALS (80 sets, daily range): BP systolic 88–129; BP diastolic 42–73; PULSE 75–108; RESP 14–33; O2SAT 91–100
[2024-08-09 04:44] LABS: ABG BASE EXCESS 0.9 mmol/L (-2.0-3.0); ABG HCO3 24.7 mmol/L (21.0-28.0); ABG OXYGEN SATURATION 98.4 % (94.0-98.0); ABG PCO2 (T) 35.9 mmHg (32.0-45.0); ABG PH (T) 7.455 (7.350-7.450); ABG PO2 (T) 110.9 mmHg (83.0-108.0); ALLEN'S TEST POSITIVE; FCOHb 0.3 % (0.5-1.5); FHHb 1.6 % (0.0-5.0); FMetHb 0.3 % (0.0-1.5); FO2Hb 97.8 % (94.0-98.0); MODE VENT - AC; PATIENT TEMPERATURE 36.8; PEEP 5 cm H2O; RESPIRATORY RATE 14 b/min; TIDAL VOLUME 450 mL; TOTAL HEMOGLOBIN 10.4 G/dl (12.0-16.0)
[2024-08-09] MEDS ORDERED: acetaminophen 325mg tablet OGT PRN ×2 (06:47→06:48)
[2024-08-09] MEDS ORDERED: magnesium hydroxide 30ml (MOM) UD suspension OGT PRN (06:50)
[2024-08-09] MEDS ORDERED: levoTHYROXINE 100mcg tablet PO SCH (07:00)
[2024-08-09] MEDS: levoTHYROXINE 100mcg tablet OGT SCH (07:26)
[2024-08-09] MEDS: apixaban 5mg tablet OGT SCH (07:26)
[2024-08-09] MEDS: carvedilol 6.25mg tablet OGT SCH (07:26)
[2024-08-09 08:11] LABS: ALBUMIN 2.2 G/DL (3.4-5.0); ANION GAP 10 (8-16); BLOOD UREA NITROGEN 26 MG/DL (7-18); BUN/CREATININE RATIO 30.2 (10.0-20.0); CHLORIDE 105 MMOL/L (99-107); CREATININE 0.86 MG/DL (0.40-0.90); GLUCOSE 163 MG/DL (70-104); MAGNESIUM 1.5 MG/DL (1.5-2.4); PHOSPHORUS 2.3 MG/DL (2.3-4.5); SODIUM 141 MMOL/L (135-145); TOTAL CARBON DIOXIDE 26.1 MMOL/L (24-32); eCRCL 53 ML/MIN; eGFR 64 ML/MIN
[2024-08-09 08:23] LABS: POTASSIUM 2.6 MMOL/L (3.5-5.1)
[2024-08-09] MEDS ORDERED: potassium Cl 40MEQ/270ML bag 270 ML IV PRN (08:35)
[2024-08-09 08:36] LABS: BASOPHILS % (AUTO) 0 % (0-1); EOSINOPHILS % (AUTO) 0 % (0-6); HEMATOCRIT 31.1 % (35.0-45.0); HEMOGLOBIN 10.4 g/dl (12.0-16.0); LYMPHOCYTES # (AUTO) 1.1 X10'3 (1.1-4.8); LYMPHOCYTES % (AUTO) 6.8 % (21-51); MEAN CORPUSCULAR HEMOGLOBIN 32.3 PG (27.0-31.0); MEAN CORPUSCULAR HGB CONC 33.3 g/dL (33.0-36.5); MEAN CORPUSCULAR VOLUME 97.2 FL (78-98); MEAN PLATELET VOLUME 9.1 FL (7.4-10.4); MONOCYTES # (AUTO) 0.6 X10'3 (0-0.9); MONOCYTES % (AUTO) 3.9 % (2-12); NEUTROPHILS # (AUTO) 14.7 X10'3 (1.8-7.7); NEUTROPHILS % (AUTO) 89.3 % (42-75); PLATELET COUNT 161 X10'3 (140-440); RED CELL DISTRIBUTION WIDTH 14.1 % (11.5-14.5); WHITE BLOOD COUNT 16.5 X10'3 (4.5-11.0)
[2024-08-09] MEDS: POTASSIUM CHLORIDE 20 MEQ/15 ML oral solution OGT ONE (09:00)
[2024-08-09 13:59] LABS: PREALBUMIN 9.4 MG/DL (19-36)
[2024-08-09] MEDS: MEROPENEM 1GM/NS 50ML IVPB IV SCH (14:39)
[2024-08-09] MEDS: POTASSIUM CHLORIDE 20 MEQ/15 ML oral solution OGT SCH (14:39)
[2024-08-09] MEDS: lactulose 20gm/30ml cup OGT SCH (14:40)
[2024-08-09 15:34] LABS: POTASSIUM 3.5 MMOL/L (3.5-5.1)
[2024-08-09] MEDS ORDERED: DEXTROSE 15 GM of carb/4 tabs (each vial/BOTTLE has 4 tablets) PO PRN ×2 (18:10)
[2024-08-09] MEDS ORDERED: dextrose 50%-water 50ml dispensing syringe IV PRN ×2 (18:10)
[2024-08-09] MEDS ORDERED: glucagon, human recombinant 1mg kit SUBCUT PRN (18:10)
[2024-08-09] MEDS: INSULIN LISPRO 100 UNIT/ML INSULN.PEN MULTI-DOSE SQ SCH (20:23)
[2024-08-09] MEDS: dexmedetomidin/NS 400mcg/100ml 100 ML IV SCH (22:55)
[2024-08-10] VITALS (57 sets, daily range): BP systolic 85–141; BP diastolic 36–72; PULSE 72–135; RESP 13–24; O2SAT 90–99
[2024-08-10 03:11] LABS: ABG BASE EXCESS -0.2 mmol/L (-2.0-3.0); ABG HCO3 23.1 mmol/L (21.0-28.0); ABG OXYGEN SATURATION 95.7 % (94.0-98.0); ABG PCO2 (T) 32.8 mmHg (32.0-45.0); ABG PH (T) 7.466 (7.350-7.450); ALLEN'S TEST Modified; FCOHb 0.1 % (0.5-1.5); FHHb 4.3 % (0.0-5.0); FMetHb 0.3 % (0.0-1.5); FO2Hb 95.3 % (94.0-98.0); MODE vent- ac prvc; PATIENT TEMPERATURE 36.7; PEEP 5 cm H2O; RESPIRATORY RATE 14 b/min; TIDAL VOLUME 450 mL; TOTAL HEMOGLOBIN 10.5 G/dl (12.0-16.0)
[2024-08-10 03:41] LABS: BASOPHILS % (AUTO) 0.1 % (0-1); EOSINOPHILS % (AUTO) 0.4 % (0-6); HEMOGLOBIN 9.7 g/dl (12.0-16.0); LYMPHOCYTES # (AUTO) 1.3 X10'3 (1.1-4.8); LYMPHOCYTES % (AUTO) 9.7 % (21-51); MEAN CORPUSCULAR HEMOGLOBIN 32.3 PG (27.0-31.0); MEAN CORPUSCULAR HGB CONC 33.6 g/dL (33.0-36.5); MEAN CORPUSCULAR VOLUME 96.3 FL (78-98); MEAN PLATELET VOLUME 8.3 FL (7.4-10.4); MONOCYTES # (AUTO) 0.8 X10'3 (0-0.9); NEUTROPHILS % (AUTO) 83.8 % (42-75); PLATELET COUNT 158 X10'3 (140-440); RED BLOOD COUNT 3.01 X10'6 (4.20-5.60); RED CELL DISTRIBUTION WIDTH 14.6 % (11.5-14.5); WHITE BLOOD COUNT 13.1 X10'3 (4.5-11.0)
[2024-08-10 04:54] LABS: ALBUMIN 2.2 G/DL (3.4-5.0); ANION GAP 7 (8-16); BLOOD UREA NITROGEN 25 MG/DL (7-18); BUN/CREATININE RATIO 29.8 (10.0-20.0); CHLORIDE 109 MMOL/L (99-107); CREATININE 0.84 MG/DL (0.40-0.90); GLUCOSE 151 MG/DL (70-104); MAGNESIUM 1.6 MG/DL (1.5-2.4); PHOSPHORUS 1.8 MG/DL (2.3-4.5); POTASSIUM 4.1 MMOL/L (3.5-5.1); SODIUM 142 MMOL/L (135-145); THYROID STIMULATING HORMONE 9.59 ulU/ml (0.34-4.50); eCRCL 55 ML/MIN; eGFR 66 ML/MIN
[2024-08-10] MEDS ORDERED: potassium Cl 20 mEq SR tablet PO PRN ×2 (11:45)
[2024-08-10] MEDS: furosemide 40mg/4ml inj IV ONE (12:01)
[2024-08-10] MEDS: insulin regular, human U-100 10ml vial - multi-dose SQ SCH (13:29)
[2024-08-10] MEDS: morphine 2 MG/ML inj. syringe IV PRN (23:24)
[2024-08-11] VITALS (33 sets, daily range): BP systolic 101–123; BP diastolic 52–77; PULSE 92–142; RESP 12–23; TEMP 97.6–98.3; O2SAT 95–100
[2024-08-11 02:36] LABS: BASOPHILS % (AUTO) 0.3 % (0-1); EOSINOPHILS # (AUTO) 0.1 X10'3 (0-0.9); EOSINOPHILS % (AUTO) 1.1 % (0-6); HEMOGLOBIN 10.9 g/dl (12.0-16.0); LYMPHOCYTES # (AUTO) 1.2 X10'3 (1.1-4.8); LYMPHOCYTES % (AUTO) 8.8 % (21-51); MEAN CORPUSCULAR HEMOGLOBIN 32.2 PG (27.0-31.0); MEAN CORPUSCULAR HGB CONC 32.9 g/dL (33.0-36.5); MEAN CORPUSCULAR VOLUME 97.9 FL (78-98); MEAN PLATELET VOLUME 8.6 FL (7.4-10.4); MONOCYTES # (AUTO) 0.9 X10'3 (0-0.9); MONOCYTES % (AUTO) 6.8 % (2-12); NEUTROPHILS # (AUTO) 10.9 X10'3 (1.8-7.7); PLATELET COUNT 157 X10'3 (140-440); RED BLOOD COUNT 3.37 X10'6 (4.20-5.60); RED CELL DISTRIBUTION WIDTH 14.7 % (11.5-14.5); WHITE BLOOD COUNT 13.1 X10'3 (4.5-11.0)
[2024-08-11 02:56] LABS: ALANINE AMINOTRANSFERASE 20 U/L (12-78); ALBUMIN 2.3 G/DL (3.4-5.0); ALBUMIN/GLOBULIN RATIO 0.7 (1.1-1.5); ALKALINE PHOSPHATASE 76 IU/L (46-116); ANION GAP 5 (8-16); ASPARTATE AMINO TRANSFERASE 11 U/L (10-37); BILIRUBIN,TOTAL 0.7 MG/DL (0.1-1.0); BLOOD UREA NITROGEN 22 MG/DL (7-18); BUN/CREATININE RATIO 29.7 (10.0-20.0); CALCIUM 8.3 MG/DL (8.5-10.1); CHLORIDE 109 MMOL/L (99-107); CREATININE 0.74 MG/DL (0.40-0.90); GLUCOSE 127 MG/DL (70-104); MAGNESIUM 1.6 MG/DL (1.5-2.4); PHOSPHORUS 2.2 MG/DL (2.3-4.5); POTASSIUM 3.2 MMOL/L (3.5-5.1); SODIUM 143 MMOL/L (135-145); TOTAL CARBON DIOXIDE 29.5 MMOL/L (24-32); TOTAL PROTEIN 5.7 G/DL (6.4-8.2); eCRCL 62 ML/MIN; eGFR 76 ML/MIN
[2024-08-11] MEDS: potassium Cl 40MEQ/270ML bag 270 ML IV PRN (03:57)
[2024-08-11] MEDS: metoprolol tartrate 1mg/ml inj IV ONE ×2 (05:58→23:22)
[2024-08-11 10:47] LABS: PRO BRAIN NATRIURETIC PEPTIDE 1028 PG/ML (0-450)
[2024-08-11] MEDS: levoTHYROXINE 75mcg tablet OGT SCH (14:20)
[2024-08-11] MEDS: famotidine/PF 10 mg/ml inj IV SCH (14:21)
[2024-08-11] MEDS ORDERED: acetaminophen 325mg/10.15ml oral unit dose solution OGT PRN ×2 (17:17)
[2024-08-11] MEDS ORDERED: POTASSIUM CHLORIDE 20 MEQ/15 ML oral solution OGT PRN ×2 (17:18)
[2024-08-11] MEDS: furosemide 40mg/4ml inj IV SCH (20:57)
[2024-08-12] VITALS (12 sets, daily range): BP systolic 99–115; BP diastolic 59–70; PULSE 91–117; RESP 13–22; TEMP 97.2–98.3; O2SAT 91–99
[2024-08-12 06:57] LABS: BASOPHILS % (AUTO) 0.5 % (0-1); EOSINOPHILS # (AUTO) 0.1 X10'3 (0-0.9); EOSINOPHILS % (AUTO) 1.5 % (0-6); HEMOGLOBIN 9.5 g/dl (12.0-16.0); LYMPHOCYTES # (AUTO) 1.3 X10'3 (1.1-4.8); LYMPHOCYTES % (AUTO) 14.6 % (21-51); MEAN CORPUSCULAR HEMOGLOBIN 32.9 PG (27.0-31.0); MEAN CORPUSCULAR HGB CONC 33.9 g/dL (33.0-36.5); MEAN CORPUSCULAR VOLUME 97.1 FL (78-98); MEAN PLATELET VOLUME 8.9 FL (7.4-10.4); MONOCYTES # (AUTO) 0.8 X10'3 (0-0.9); MONOCYTES % (AUTO) 9.5 % (2-12); NEUTROPHILS # (AUTO) 6.4 X10'3 (1.8-7.7); NEUTROPHILS % (AUTO) 73.9 % (42-75); PLATELET COUNT 134 X10'3 (140-440); RED BLOOD COUNT 2.88 X10'6 (4.20-5.60); RED CELL DISTRIBUTION WIDTH 14.3 % (11.5-14.5); WHITE BLOOD COUNT 8.7 X10'3 (4.5-11.0)
[2024-08-12 07:21] LABS: ALANINE AMINOTRANSFERASE 14 U/L (12-78); ALBUMIN/GLOBULIN RATIO 0.6 (1.1-1.5); ALKALINE PHOSPHATASE 66 IU/L (46-116); ANION GAP 7 (8-16); ASPARTATE AMINO TRANSFERASE 17 U/L (10-37); BILIRUBIN,TOTAL 0.7 MG/DL (0.1-1.0); BLOOD UREA NITROGEN 17 MG/DL (7-18); BUN/CREATININE RATIO 27.4 (10.0-20.0); CALCIUM 8.4 MG/DL (8.5-10.1); CHLORIDE 106 MMOL/L (99-107); CREATININE 0.62 MG/DL (0.40-0.90); GLUCOSE 88 MG/DL (70-104); MAGNESIUM 1.3 MG/DL (1.5-2.4); PHOSPHORUS 1.5 MG/DL (2.3-4.5); SODIUM 145 MMOL/L (135-145); TOTAL CARBON DIOXIDE 31.9 MMOL/L (24-32); TOTAL PROTEIN 5.1 G/DL (6.4-8.2); eCRCL 74 ML/MIN; eGFR > 90 ML/MIN
[2024-08-12] MEDS: potassium Cl 20 mEq SR tablet PO STA (07:46)
[2024-08-12] MEDS: potassium phosphate inj 15 MMOL in normal saline 250ml IV soln 250 ML IV ONE (07:50)
[2024-08-12] MEDS: magnesium sulf-water 4G/100mL 100 ML IV ONE (07:50)
[2024-08-12] MEDS: levoFLOXACIN-Levaquin 750MG/D5 150 ML IV SCH (08:00)
[2024-08-12] MEDS ORDERED: potassium Cl 20 mEq SR tablet PO PRN (11:00)
[2024-08-12] MEDS ORDERED: magnesium sulf-water 2g/50mL 50 ML IV PRN (11:00)
[2024-08-12] MEDS ORDERED: magnesium sulf-water 4G/100mL 100 ML IV PRN (11:00)
[2024-08-12] MEDS ORDERED: potassium Cl 40MEQ/1/2NS 520ml 520 ML IV PRN (11:00)
[2024-08-12] MEDS ORDERED: acetaminophen 325mg/10.15ml oral unit dose solution PO PRN ×2 (11:11→11:12)
[2024-08-12] MEDS ORDERED: magnesium hydroxide 30ml (MOM) UD suspension PO PRN (11:12)
[2024-08-12] MEDS ORDERED: apixaban 5mg tablet PO SCH (11:12)
[2024-08-12] MEDS ORDERED: carvedilol 6.25mg tablet PO SCH (11:12)
[2024-08-12] MEDS: Neutra Phos packet PO SCH (11:49)
[2024-08-12] MEDS: magnesium Cl slow-release 64mg tablet PO PRN (11:50)
[2024-08-12] MEDS: potassium Cl 20 mEq SR tablet PO PRN (13:40)
[2024-08-12 16:07] LABS: MAGNESIUM 1.2 MG/DL (1.5-2.4); PHOSPHORUS 1.8 MG/DL (2.3-4.5); POTASSIUM 3.2 MMOL/L (3.5-5.1)
[2024-08-12] MEDS ORDERED: K and/or MAG REPLACEMENT MC SCH (20:00)
== END 2024-08-12 16:58 | DRG 871 ==
LOC: ER 06:21 → CICU 2S 08:24 → ORTHO 4S 08-11 17:48 → PCU 3S 08-11 22:45
PROVIDERS: ADMIT Internal Medicine Critical Care Medicine; ATTEND Internal Medicine Critical Care Medicine
PROC: 0BH17EZ Insertion of Endotracheal Airway into Trachea, Via Natural or Artificial Opening (ICD-10-PCS; principal; 2024-08-08)
PROC: 5A1945Z Respiratory Ventilation, 24-96 Consecutive Hours (ICD-10-PCS; 2024-08-08)
PROC: 5A09357 Assistance with Respiratory Ventilation, Less than 24 Consecutive Hours, Continuous Positive Airway Pressure (ICD-10-PCS; 2024-08-08)
PROC: 02HV33Z Insertion of Infusion Device into Superior Vena Cava, Percutaneous Approach (ICD-10-PCS; 2024-08-09)
PROC: B548ZZA Ultrasonography of Superior Vena Cava, Guidance (ICD-10-PCS; 2024-08-09)
PROC: 5A09357 Assistance with Respiratory Ventilation, Less than 24 Consecutive Hours, Continuous Positive Airway Pressure (ICD-10-PCS; 2024-08-10)
PROC: 5A09357 Assistance with Respiratory Ventilation, Less than 24 Consecutive Hours, Continuous Positive Airway Pressure (ICD-10-PCS; 2024-08-11)
PROC: 5A09357 Assistance with Respiratory Ventilation, Less than 24 Consecutive Hours, Continuous Positive Airway Pressure (ICD-10-PCS; 2024-08-12)
DX: A41.9 Sepsis, unspecified organism (principal); G93.41 Metabolic encephalopathy; N17.0 Acute kidney failure with tubular necrosis; J96.22 Acute and chronic respiratory failure with hypercapnia; J96.21 Acute and chronic respiratory failure with hypoxia; I50.33 Acute on chronic diastolic (congestive) heart failure; R65.21 Severe sepsis with septic shock; J18.9 Pneumonia, unspecified organism; E66.2 Morbid (severe) obesity with alveolar hypoventilation; N39.0 Urinary tract infection, site not specified; I48.20 Chronic atrial fibrillation, unspecified; J44.0 Chronic obstructive pulmonary disease with (acute) lower respiratory infection; E11.9 Type 2 diabetes mellitus without complications; I11.0 Hypertensive heart disease with heart failure; E78.00 Pure hypercholesterolemia, unspecified; Z99.81 Dependence on supplemental oxygen; Z88.5 Allergy status to narcotic agent; Z88.8 Allergy status to other drugs, medicaments and biological substances; Z79.01 Long term (current) use of anticoagulants; Z79.899 Other long term (current) drug therapy; Z85.3 Personal history of malignant neoplasm of breast; Z90.710 Acquired absence of both cervix and uterus; Z87.891 Personal history of nicotine dependence; Z68.38 Body mass index [BMI] 38.0-38.9, adult
CPT/HCPCS: 36415; 36600; 70450; 71045; 74176; 80048; 80053; 80305; 80320; 81003; 82140; 82803; 82948; 83605; 83690; 83735; 83880; 84100; 84132; 84134; 84145; 84443; 85018; 85025; 86885; 86900; 86901; 87040; 87070; 87081; 87502; 87503; 92508; 92616; 93005; 94002; 94003; 94640; 94660; 94760; 94799; 99291; A4615; A6212; A6213; A6250; A6258; A6449; C1751; C1758; G0378; J0692; J1815; J1940; J1956; J2185; J2270; J2704; J2919; J3010; J3475; J3480; J3490; J7030; J7040; J7050

== ENCOUNTER 2024-11-19 09:54 | Inpatient (IN) | payer MEDICAID, MEDICARE ==
[~2024-11-19] VITALS: Ht 170.2 cm; Wt 91.4 kg
[~2024-11-19 09:54] MED LIST changes: -CALC600T22 PO; +CARV3.122 PO; -CARV6.253 PO; -CEPH250C PO; +FURO-150 PO; -FURO40TA4 PO; -GABA-530 PO; -GABAPENTIN; -LEVO125T8 PO; +LEVO150T8 PO; -LIOT25TA12 PO; +LIOT5TAB10 PO; -MAGN250T11 PO; +MAGN400C PO; +MELA5TAB12 PO; -PANT40TA54 PO; -RED600CA2 PO; +SULF1TAB48 PO; +ZINC220C7 PO; -ZINC50CA2 PO; -ZOLP10TA PO; +ZOLP5TAB8 PO; -ZOLPIDEM; +[UNRECOGNIZED DRUG - CODE] PO
--- NOTE | 2024-11-19 10:11 | Physician Documentation ---
History of Present Illness ~ Stated Complaint: SOB Time Seen by MD: 09:57 Primary Medical Doctor: Dr. wong HPI 78-year-old female who presents by ambulance from care facility, patient has been having increasing lethargy and confusion, history of COPD using 3 L of oxygen at baseline, patient was started on antibiotics at the care facility for increased work of breathing, was found by paramedics to have atrial fibrillation with a rapid ventricular response. Timing/Duration: days Severity: moderate Activities at Onset: rest Risk Factors: none History Of: COPD Prehospital Care: 02, inhaled B2 Prior Episode/Exposure: frequent episodes Modifiying Factors: Improves with: coughing, oxygen Associated Symptoms: cough Medication Reconciliation Allergies: Coded Allergies: morphine (Unverified Allergy, Severe, 11/19/24) codeine (Verified Allergy, Unknown, 11/19/24) cortisone (Unverified Allergy, Unknown, 11/19/24) PT HAS RECEIVED METHYLPREDNISOLONE IN PAST, 2023 Scheduled Amitriptyline Hcl (Elavil), 1 TAB PO HS, (Reported) Apixaban (Eliquis), 1 TAB PO BID, (Reported) Ascorbic Acid* (Vitamin C*), 4 TAB PO DAILY, (Reported) Carvedilol (Carvedilol), 1 TAB PO Q12H, (Reported) Cholecalciferol (Vitamin D), 1 TAB PO DAILY, (Reported) Ferrous Sulfate (Ferrous Sulfate), 1 TAB PO DAILY, (Reported) Fluoxetine HCl (Fluoxetine HCl), 1 CAP PO DAILY, (Reported) Fluticasone/Vilanterol (Breo Ellipta 200-25 Mcg INH), 1 PUFFS INH DAILY, (Reported) Furosemide* (Lasix*), 40 MG PO DAILY, (Reported) Hydroxyzine Hcl* (Atarax*), 1 TAB PO HS, (Reported) Ipratropium/Albuterol Sulfate (IPRAT-ALBUT 0.5-3(2.5) MG/3 ML nebule), 1 VIAL NEB Q12H, (Reported) Levothyroxine Sodium (Levothyroxine Sodium), 150 MCG PO DAILY, (Reported) Liothyronine Sodium (Liothyronine Sodium), 1 TAB PO DAILY, (Reported) Loratadine (Loratadine), 1 TAB PO DAILY, (Reported) Magnesium Oxide (Magnesium), 400 MG PO DAILY, (Reported) Metformin Hcl* (Glucophage*), 1 TAB PO DAILY, (Reported) Pantoprazole Sodium (PROTONIX tablet), 1 TAB PO DAILY, (Reported) Potassium Chloride (Klor-Con), 20 MEQ PO DAILY, (Reported) Sulfamethoxazole/Trimethoprim (Bactrim 400-80 Mg Tablet), 1 TAB PO Q12H, (Reported) Ubidecarenone (Co Q-10), 1 CAP PO DAILY, (Reported) Vitamin B Complex (B Complex), 1 TAB PO DAILY, (Reported) Zinc Sulfate (Zinc-220), 1 CAP PO DAILY, (Reported) Scheduled PRN Calcium Carbonate (Calcium Carbonate), 1 TAB PO Q4H PRN for indigestion/dyspepsia, (Reported) Melatonin (Melatonin), 1 TAB PO HS PRN for sleep, (Reported) Zolpidem Tartrate (Zolpidem Tartrate), 5 MG PO DAILY PRN for sleep, (Reported) Miscellaneous Medications Metolazone (Metolazone), 1 TAB PO, (Reported) Past Medical History Past Medical History: Atrial Fibrillation, High Cholesterol, Hypertension, Asthma, UTI, Diabetes, Hypothyroidism, Chronic Back Pain, Breast Cancer Past Surgical History: cholecystectomy, hysterectomy, orthopedic surgeries Other Past Surgical History: Thyroidectomy Patient History: FH: heart disease FATHER FH: lupus Daughter Alcohol Use: None Drug Use: none Lives with: Spouse Lives In: Home Occupation: retired Review of Systems Constitutional: Reports: see HPI, weakness Respiratory: Reports: cough, shortness of breath, SOB with exertion, SOB at rest Cardiovascular: Reports: palpitations, irregular heart rate Neurological: Reports: see HPI, cognitive dysfunction Physical Exam Vital Signs: RN Vital Signs have been reviewed: Yes Pulse Oximetry Reflects: hypoxemia General Appearance: somnolent, confused, moderate distress Neck: normal inspection; No: tender EENT: dry mucous membranes Respiratory: respiratory distress, wheezing Chest: no accessory muscle use Edema: 2+ Lower Extremity (R), 2+ Lower Extremity (L) Skin: pallor Sepsis Screening Reassessment Date: Nov 19, 2024 Vitals Signs Review 10:08 a.m. Cardiology Exam: tachycardia; No: normal peripheral pulses, no edema Extremities: slow capillary refill Skin Color: Pale Progress Results/Orders Results/Orders Orders - CHIN,FABRIZIO C DO Culture Blood (11/19/24 09:59) Urinalysis, Cult If Indicated (11/19/24 09:59) Chest,Single View (11/19/24 09:59) Monitor (11/19/24 09:59) Oxygen (11/19/24 09:59) Saline Lock (11/19/24 09:59) Straight Cath For Urine Sample (11/19/24 09:59) Page Hospitalist (11/19/24 14:19) Fill Out Med Reconciliation (11/19/24 14:19) Diltiazem-Ns 100mg/100ml (Cardizem-Ns 10 (11/19/24 15:00) Mixed Venous (11/19/24 ) Completed Orders - FABRIZIO CHIN DO Cbc/Diff (11/19/24 09:59) Chest,Single View (11/19/24 09:59) Procalcitonin (11/19/24 09:59) BMP (11/19/24 09:59) Lacticsepsis (11/19/24 09:59) Hs Troponin I W Calculations (11/19/24 09:59) Diltiazem Iv (Cardizem Iv 5mg/Ml Inj.) (11/19/24 11:20) Furosemide Inj (Lasix Inj) (11/19/24 11:25) PBNP (11/19/24 10:19) Diltiazem Iv (Cardizem Iv 5mg/Ml Inj.) (11/19/24 14:20) Medications Received in ER Medications (Trade) Dose Ordered Sig/Steff Route PRN Reason Start Time Stop Time Status Last Admin Dose Admin (Cardizem IV 5mg/ ml inj.) 10 mg ONCE ONCE IV 11/19/24 11:20 11/19/24 11:21 DC 11/19/24 12:06 10 MG (Lasix inj) 80 mg ONCE ONCE IV 11/19/24 11:25 11/19/24 11:26 DC 11/19/24 12:09 80 MG Vital Signs 11/19/24 11/19/24 11/19/24 11/19/24 09:56 10:10 10:11 11:00 Temp 98.6 Pulse 128 132 133 Resp 24 29 26 27 B/P (MAP) 119/68 119/68 (85) 120/80 (93) Pulse Ox 98 98 97 O2 Flow Rate 3.0 3.0 3.0 11/19/24 11/19/24 11/19/24 12:06 12:13 13:21 Pulse 135 113 127 Resp 29 29 B/P (MAP) 126/69 114/82 (93) 111/63 (79) Pulse Ox 93 97 O2 Flow Rate 3.0 0 Laboratory Tests Test 11/19/24 10:19 White Blood Count 7.7 Red Blood Count 3.98 L Hemoglobin 12.1 Hematocrit 37.4 Mean Corpuscular Volume 94.1 Mean Corpuscular Hemoglobin 30.3 Mean Corpuscular Hemoglobin Concent 32.2 L Red Cell Distribution Width 14.2 Platelet Count 154 Mean Platelet Volume 8.7 Neutrophils (%) (Auto) 81.8 H Lymphocytes (%) (Auto) 9.7 L Monocytes (%) (Auto) 7.9 Eosinophils (%) (Auto) 0.4 Basophils (%) (Auto) 0.2 Neutrophils # (Auto) 6.3 Lymphocytes # (Auto) 0.7 L Monocytes # (Auto) 0.6 Eosinophils # (Auto) 0.0 Basophils # (Auto) 0.0 CBC Comment Sodium Level 146 H Potassium Level 5.0 Chloride Level 105 Carbon Dioxide Level 37.4 H Anion Gap 4 L Blood Urea Nitrogen 11 Creatinine 0.67 Estimated GFR/1.73 m2 85 BUN/Creatinine Ratio 16.4 Glucose Level 119 H Lactic Acid Level 1.1 Calcium Level 9.8 Troponin I High Sensitivity 11 Pro-B-Type Natriuretic Peptide 2904 H Albumin 2.6 L Procalcitonin 0.16 Chemistry Comments Microbiology Date/Time Source Procedure Growth Status 11/19/24 10:33 Blood Iv Start Blood Culture - Preliminary NEGATIVE (LESS THAN 24 HOURS) Resulted EKG/XRAY/CT/US/VASC/MRI EKG : Additional Comment Atrial fibrillation with a rate of 133 normal axis, rapid ventricular response, no ST segment elevations or depressions, Q-wave in lead three and AVF inferior infarct age undetermined, abnormal EKG. Chest X-Ray : Additional Comments [facility] [address], [place], [place] - [address] DIAGNOSTIC RADIOLOGY Patient: CIPRIANO IRELAND Medical Record: [id number] [facility] : 1945, Age: 78 Sex: Female Location: ER Patient Status: [facility] ER Service Date/Time: 11/19/24958 Ordering Physician: FABRIZIO CHIN DO Exam: CHEST,SINGLE VIEW EXAM: DI CHEST,SINGLE VIEW Indication: sob Technique: Single frontal view of the chest was obtained Comparison: DI CHEST,SINGLE VIEW on DOS: 10/22/24, DI CHEST,SINGLE VIEW on DOS: 09/09/24, DI CHEST,SINGLE VIEW on DOS: 08/10/24, DI CHEST,SINGLE VIEW on DOS: 08/09/24, DI CHEST,SINGLE VIEW on DOS: 08/09/24 FINDINGS: Lines and Tubes: None Lungs: Small bilateral pleural effusions. Pulmonary edema. No pneumothorax. Cardiomediastinal contours: Cardiomegaly. Bones: No acute osseous abnormality. IMPRESSION: Cardiomegaly with small bilateral pleural effusions and pulmonary edema. Electronically Signed by:BETH PRUITT MD Date & Time: 11/19/241114 Dictated by: BETH PRUITT MD Dictation date and time: 11/19/241114 Primary Care Provider: NO PRIMARY CARE PROVIDER cc: FABRIZIO CHIN DO ~ Medical Decision Making Differential Dx:Considerations: Include: bronchitis, cardiogenic shock, CHF, pn eumonia, pneumonitis, respiratory distress, respiratory failure, upper resp. infection Departure Disposition: ADMITTED INPATIENT Admission Level of Care: PCU with Tele Impression: Primary Impression: Acute on chronic systolic heart failure Additional Impression: Acute exacerbation of chronic obstructive airways disease Condition: Critical Referrals: NO PRIMARY CARE PROVIDER (PCP) Critical Care Note Total Time (mins): 45 Critical Care Note Critical care time spent managing impending cardiovascular collapse in the setting of atrial fibrillation with rapid ventricular rate and hypoxic respiratory failure, critical care time is exclusive of all other billable procedures. Signature Scribe Signature: None Attestation: Dictated by myself FABRIZIO CHIN DO Nov 19, 2024 10:11
[2024-11-19 10:48] LABS: BASOPHILS % (AUTO) 0.2 % (0-1); EOSINOPHILS % (AUTO) 0.4 % (0-6); HEMATOCRIT 37.4 % (35.0-45.0); HEMOGLOBIN 12.1 g/dl (12.0-16.0); LYMPHOCYTES # (AUTO) 0.7 X10'3 (1.1-4.8); LYMPHOCYTES % (AUTO) 9.7 % (21-51); MEAN CORPUSCULAR HEMOGLOBIN 30.3 PG (27.0-31.0); MEAN CORPUSCULAR HGB CONC 32.2 g/dL (33.0-36.5); MEAN CORPUSCULAR VOLUME 94.1 FL (78-98); MEAN PLATELET VOLUME 8.7 FL (7.4-10.4); MONOCYTES # (AUTO) 0.6 X10'3 (0-0.9); MONOCYTES % (AUTO) 7.9 % (2-12); NEUTROPHILS # (AUTO) 6.3 X10'3 (1.8-7.7); NEUTROPHILS % (AUTO) 81.8 % (42-75); PLATELET COUNT 154 X10'3 (140-440); RED BLOOD COUNT 3.98 X10'6 (4.20-5.60); RED CELL DISTRIBUTION WIDTH 14.2 % (11.5-14.5); WHITE BLOOD COUNT 7.7 X10'3 (4.5-11.0)
[2024-11-19 10:52] LABS: ALBUMIN 2.6 G/DL (3.4-5.0); ANION GAP 4 (8-16); BLOOD UREA NITROGEN 11 MG/DL (7-18); BUN/CREATININE RATIO 16.4 (10.0-20.0); CALCIUM 9.8 MG/DL (8.5-10.1); CHLORIDE 105 MMOL/L (99-107); CREATININE 0.67 MG/DL (0.40-0.90); GLUCOSE 119 MG/DL (70-104); SODIUM 146 MMOL/L (135-145); TOTAL CARBON DIOXIDE 37.4 MMOL/L (24-32); eCRCL 68 ML/MIN; eGFR 85 ML/MIN
--- NOTE | 2024-11-19 11:17 | RADIOLOGY REPORT ---
EXAM: DI CHEST,SINGLE VIEW Indication: sob Technique: Single frontal view of the chest was obtained Comparison: DI CHEST,SINGLE VIEW on DOS: 10/22/24, DI CHEST,SINGLE VIEW on DOS: 09/09/24, DI CHEST,SINGL E VIEW on DOS: 08/10/24, DI CHEST,SINGLE VIEW on DOS: 08/09/24, DI CHEST,SINGLE VIEW on DOS: 08/09/24 FINDINGS: Lines and Tubes: None Lungs: Small bilateral pleural effusions. Pulmonary edema. No pneumothorax. Cardiomediastinal contours: Cardiomegaly. Bones: No acute osseous abnormality. IMPRESSION: Cardiomegaly with small bilateral pleural effusions and pulmonary edema.
[2024-11-19 11:56] LABS: PRO BRAIN NATRIURETIC PEPTIDE 2904 PG/ML (0-450)
[2024-11-19] MEDS: diltiazem 5mg/ml 5ml inj. IV ONE ×2 (12:06→15:49)
[2024-11-19] MEDS: furosemide 10 MG/1 ML 10ml inj IV ONE (12:09)
--- NOTE | 2024-11-19 14:27 | ELECTROCARDIOGRAPH REPORT ---
[facility] Test Date: 2024-11-19 Test Time: 10:01:45 Pat Name: CIPRIANO IRELAND Department: EMERGENCY ROOM Room: Gender: F Sisal Operator: JENNIFER : 1945 Requested By: DEPARTMENT EMERGENCY Order Number: [id number] Reading MD: Measurements Intervals [place] Rate: 133 P: 0 TN: 0 QRS: -4 QRSD: 97 T: 172 QT: 307 QTc: 457 Interpretive Statements Atrial fibrillation Low voltage, extremity leads Consider anterior infarct Repolarization abnormality, prob rate related Please click the below link to view image of tracing.
[2024-11-19] MEDS ORDERED: magnesium Cl slow-release 64mg tablet PO PRN (15:05)
[2024-11-19] MEDS ORDERED: potassium Cl 40MEQ/1/2NS 520ml 520 ML IV PRN (15:05)
[2024-11-19] MEDS ORDERED: acetaminophen 325mg tablet PO PRN (15:05)
[2024-11-19] MEDS ORDERED: ondansetron/PF 4mg/2ml inj IV PRN (15:05)
[2024-11-19] MEDS ORDERED: potassium Cl 20 mEq SR tablet PO PRN (15:05)
[2024-11-19] MEDS ORDERED: magnesium sulf-water 4G/100mL 100 ML IV PRN (15:05)
[2024-11-19] MEDS ORDERED: magnesium sulf-water 2g/50mL 50 ML IV PRN (15:05)
[2024-11-19] MEDS ORDERED: diltiazem-NS 100mg/100ml 100 ML IV SCH (15:10)
--- NOTE | 2024-11-19 16:15 | HISTORY AND PHYSICAL-Residence ---
History & Physical Providers to CC Resident Creating Document: CHANDRIKA SOFIA RES ~ History of Present Illness Primary Medical Doctor: Dr. wong Reason for Admit\Complaint: ALOC History of Present Illness Patient is currently altered and barely arousable, unable to provide a history at this time. 78-year-old female with history of AFib, obstructive sleep apnea, hyperlipidemia, hypertension, hypothyroid, CHF preserved EF, chronic hypoxic respiratory failure baseline 3 L oxygen presented to the ED from [facility] for altered level of consciousness. On further evaluation she was found to be in AFib with RVR. Currently in AFib with heart rate 108, on the Cardizem drip. Was given Lasix and IV Cardizem in the ED. Patient has a POLST with states full code. Allergies: Coded Allergies: morphine (Unverified Allergy, Severe, 11/19/24) codeine (Verified Allergy, Unknown, 11/19/24) cortisone (Unverified Allergy, Unknown, 11/19/24) PT HAS RECEIVED METHYLPREDNISOLONE IN PAST, 2023 Home Medications Home Medications Active Reported Bactrim 400-80 Mg Tablet (Trimethoprim/Sulfamethoxazole) 400 Mg-80 Mg Tablet 1 Tab PO Q12H 10 Days Lasix* (Furosemide) 20 Mg Tablet 40 Mg PO DAILY 30 Days Melatonin 5 Mg Tab.rapdis 1 Tab PO HS PRN 30 Days Zinc-220 (Zinc Sulfate) 50 Mg Zinc (220 Mg) Capsule 1 Cap PO DAILY Magnesium (Magnesium Oxide) 400 Mg Magnesium Capsule 400 Mg PO DAILY Calcium Carbonate 400 Mg Calcium (1000 Mg) Tab.chew 1 Tab PO Q4H PRN Levothyroxine Sodium 150 Mcg Tablet 150 Mcg PO DAILY Liothyronine Sodium 5 Mcg Tablet 1 Tab PO DAILY 30 Days Zolpidem Tartrate 5 Mg Tablet 5 Mg PO DAILY PRN Carvedilol 3.125 Mg Tablet 1 Tab PO Q12H 30 Days Loratadine 10 Mg Tablet 1 Tab PO DAILY Fluoxetine HCl 10 Mg Capsule 1 Cap PO DAILY Metolazone 5 Mg Tablet 1 Tab PO Elavil (Amitriptyline Hcl) 50 Mg Tablet 1 Tab PO HS Breo Ellipta 200-25 Mcg INH (Fluticasone/Vilanterol) 200 Mcg-25 Mcg/Dose Blst.w.dev 1 Puffs INH DAILY IPRAT-ALBUT 0.5-3(2.5) MG/3 ML nebule (Ipratropium/Albuterol Sulfate) 0.5 Mg-3 Mg (2.5 Mg Base)/3 Ml Ampul.neb 1 Vial NEB Q12H 30 Days PROTONIX tablet (Pantoprazole Sodium) 40 Mg Tablet.dr 1 Tab PO DAILY 30 Days Co Q-10 (Ubidecarenone) 300 Mg Capsule 1 Cap PO DAILY 30 Days Ferrous Sulfate 325 Mg Tablet 1 Tab PO DAILY 30 Days Vitamin D (Cholecalciferol) 2,000 Unit Tablet 1 Tab PO DAILY 30 Days Vitamin C* (Ascorbic Acid) 500 Mg Tablet 4 Tab PO DAILY B Complex (Vitamin B Complex) 1 Each Tablet 1 Tab PO DAILY Klor-Con (Potassium Chloride) 10 Meq Tab.prt.sr 20 Meq PO DAILY Eliquis (Apixaban) 5 Mg Tablet 1 Tab PO BID Atarax* (Hydroxyzine HCl) 25 Mg Tablet 1 Tab PO HS Glucophage* (Metformin HCl) 500 Mg Tablet 1 Tab PO DAILY Past Medical History Past Medical History AFib LESLIE, morbid obesity, hypertension, hyperlipidemia, hypothyroidism, heart failure with preserved EF Past Surgical History Surgical History Comment Orthopedic surgeries Family History Family History: FH: heart disease FATHER FH: lupus Daughter Past Social History Smoking: Quit greater than 1 year Alcohol Use: None Drug Use: None Lives with: Spouse Lives In: Home Occupation: retired ROS ROS Unable to determine Constitutional: Reports: see HPI, weakness Respiratory: Reports: cough, shortness of breath, SOB with exertion, SOB at rest Cardiovascular: Reports: palpitations, irregular heart rate Neurological: Reports: see HPI, cognitive dysfunction Exam Vitals: Vital Signs Date Time Temp Pulse Resp B/P (MAP) Pulse Ox O2 Delivery O2 Flow Rate FiO2 11/19/24 16:00 108 25 113/62 (79) 94 6.0 11/19/24 09:56 98.6 General: General: AAO x 0. On 6 lt normal breather HEENT: Conjunctiva pink, Sclera clear, Mucus Membranes moist. Neck: Supple without masses and tenderness. Resp: Unlabored. Right-sided basal crackles Heart: Irregularly irregular rhythm, variable S1, no rub, murmur or gallop. Abdomen: Soft and non tender no organomegaly. Normal bowel sounds x4 quadrant normoactive. No guarding or rigidity. Extremities: Normal ROM, no swelling, nontender. No cyanosis,clubbing or edema. 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 Diagnostic Data Last Recorded Lab Results: 11/19/24 1019 11/19/24 1019 Advance Care Planning Advanced Care plannin - 30 Minutes Additional Plan Patient is currently altered and barely arousable, unable to provide a history at this time. 78-year-old female with history of AFib, obstructive sleep apnea, hyperlipidemia, hypertension, hypothyroid, CHF preserved EF, chronic hypoxic respiratory failure baseline 3 L oxygen presented to the ED from [facility] for altered level of consciousness. Altered level of consciousness Metabolic encephalopathy Acute on chronic hypoxic respiratory failure Acute exacerbation of CHF with preserved EF Uses 3 L oxygen nasal cannula at baseline, currently on 6 L oxygen normal breather WBCs, procalcitonin lactic acid within normal limits Follow up with UA and U tox CXR: Small bilateral pleural effusion and pulmonary vascular congestion Started IV Lasix Breathing treatments p.r.n. AFib RVR AFib with heart rate in 130s Currently on the Cardizem drip Awaiting med rec Code Status: Full code DVT prophylaxis: Eliquis after med rec is done Analgesia/sedation: None Line/tube: PIV GI prophylaxis: None Nutrition: Heart healthy after she passes swallowing eval Prognosis: Guarded Disposition: Continue medical management. Chandrika Sofia MD. IM Resident PGY-2 Date of Service: Nov 19, 2024 Billing Provider: BRENT MACKEY MD Common Visit Codes: [id number] INP/OBS CARE (HIGH) CHANDRIKA SOFIA, JAJA Nov 19, 2024 16:15 BRENT MACKEY MD Nov 19, 2024 18:37
[2024-11-19] MEDS: diltiazem-NS 100mg/100ml 100 ML IV SCH (16:34)
[2024-11-19 16:42] LABS: ABG HCO3 32.3 mmol/L (21.0-28.0); ABG PCO2 (T) 92.8 mmHg (32.0-45.0); ABG PH (T) 7.159 (7.350-7.450); ABG PO2 (T) 98.7 mmHg (83.0-108.0); ALLEN'S TEST POSITIVE; FLOW 6 L/min; FMetHb 0.1 % (0.0-1.5); FO2Hb 96.9 % (94.0-98.0); MODE MASK - SIMPLE; TOTAL HEMOGLOBIN 12.7 G/dl (12.0-16.0)
[2024-11-19 16:53] VITALS: PULSE 130; RESP 31; O2SAT 94
[2024-11-19 18:12] LABS: ABG BASE EXCESS 6.7 mmol/L (-2.0-3.0); ABG HCO3 37.5 mmol/L (21.0-28.0); ABG OXYGEN SATURATION 88.4 % (94.0-98.0); ABG PCO2 (T) 94.2 mmHg (32.0-45.0); ABG PH (T) 7.218 (7.350-7.450); ABG PO2 (T) 55.7 mmHg (83.0-108.0); ALLEN'S TEST POSITIVE; FCOHb 0.2 % (0.5-1.5); FHHb 11.6 % (0.0-5.0); FMetHb 0.1 % (0.0-1.5); FO2Hb 88.1 % (94.0-98.0); MODE MASK - BIPAP; RESPIRATORY RATE 12 b/min; TIDAL VOLUME 433 mL; TOTAL HEMOGLOBIN 12.4 G/dl (12.0-16.0)
[2024-11-19 18:15] VITALS: PULSE 108; RESP 27; O2SAT 95
[2024-11-19 19:11] LABS: ABG BASE EXCESS 7.1 mmol/L (-2.0-3.0); ABG HCO3 35.3 mmol/L (21.0-28.0); ABG OXYGEN SATURATION 97.3 % (94.0-98.0); ABG PCO2 (T) 70.1 mmHg (32.0-45.0); ALLEN'S TEST POSITIVE; FCOHb 0.3 % (0.5-1.5); FHHb 2.7 % (0.0-5.0); MODE MASK - BIPAP; RESPIRATORY RATE 12 b/min
[2024-11-19 19:13] VITALS: PULSE 104; RESP 25; O2SAT 97
[2024-11-19 20:51] LABS: ABG BASE EXCESS 7.5 mmol/L (-2.0-3.0); ABG OXYGEN SATURATION 95.4 % (94.0-98.0); ABG PCO2 (T) 73.4 mmHg (32.0-45.0); ABG PH (T) 7.309 (7.350-7.450); ABG PO2 (T) 72.7 mmHg (83.0-108.0); ALLEN'S TEST POSITIVE; FCOHb 0.7 % (0.5-1.5); FHHb 4.6 % (0.0-5.0); FMetHb 0.1 % (0.0-1.5); FO2Hb 94.6 % (94.0-98.0); RESPIRATORY RATE 12 b/min
[2024-11-19 21:00] VITALS: BP 109/44; PULSE 96; RESP 21; TEMP 97.3; O2SAT 96
[2024-11-19] MEDS: furosemide 20 MG/2 ML vial IV SCH (21:55)
[2024-11-19] MEDS: heparin, porcine 5000 units/ml vial SQ SCH (21:56)
[2024-11-19 22:00] VITALS: BP 114/48; PULSE 94; RESP 18; TEMP 97.3; O2SAT 96
[2024-11-19 23:59] VITALS: PULSE 94; RESP 18; O2SAT 95
[2024-11-20] VITALS (16 sets, daily range): BP systolic 99–123; BP diastolic 41–60; PULSE 93–114; RESP 18–30; TEMP 97.3–98.1; O2SAT 94–99
[2024-11-20] MEDS: Melatonin 3mg tablet PO ONE (03:49)
[2024-11-20 06:30] LABS: BASOPHILS % (AUTO) 0.3 % (0-1); EOSINOPHILS # (AUTO) 0.1 X10'3 (0-0.9); EOSINOPHILS % (AUTO) 1.2 % (0-6); HEMATOCRIT 31.6 % (35.0-45.0); HEMOGLOBIN 10.6 g/dl (12.0-16.0); LYMPHOCYTES # (AUTO) 0.9 X10'3 (1.1-4.8); LYMPHOCYTES % (AUTO) 13.7 % (21-51); MEAN CORPUSCULAR HEMOGLOBIN 31.1 PG (27.0-31.0); MEAN CORPUSCULAR HGB CONC 33.6 g/dL (33.0-36.5); MEAN CORPUSCULAR VOLUME 92.6 FL (78-98); MEAN PLATELET VOLUME 8.8 FL (7.4-10.4); MONOCYTES # (AUTO) 0.8 X10'3 (0-0.9); MONOCYTES % (AUTO) 12.9 % (2-12); NEUTROPHILS # (AUTO) 4.6 X10'3 (1.8-7.7); NEUTROPHILS % (AUTO) 71.9 % (42-75); PLATELET COUNT 135 X10'3 (140-440); RED BLOOD COUNT 3.41 X10'6 (4.20-5.60); RED CELL DISTRIBUTION WIDTH 14.1 % (11.5-14.5); WHITE BLOOD COUNT 6.4 X10'3 (4.5-11.0)
[2024-11-20 07:04] LABS: ALANINE AMINOTRANSFERASE 8 U/L (12-78); ALBUMIN 2.2 G/DL (3.4-5.0); ALBUMIN/GLOBULIN RATIO 0.6 (1.1-1.5); ALKALINE PHOSPHATASE 62 IU/L (46-116); ANION GAP 7 (8-16); ASPARTATE AMINO TRANSFERASE 17 U/L (10-37); BILIRUBIN,TOTAL 0.8 MG/DL (0.1-1.0); BLOOD UREA NITROGEN 14 MG/DL (7-18); BUN/CREATININE RATIO 17.1 (10.0-20.0); CALCIUM 9.5 MG/DL (8.5-10.1); CHLORIDE 101 MMOL/L (99-107); CREATININE 0.82 MG/DL (0.40-0.90); GLUCOSE 80 MG/DL (70-104); POTASSIUM 3.4 MMOL/L (3.5-5.1); SODIUM 145 MMOL/L (135-145); TOTAL PROTEIN 5.6 G/DL (6.4-8.2); eCRCL 56 ML/MIN; eGFR 68 ML/MIN
[2024-11-20] MEDS: potassium Cl 20 mEq SR tablet PO PRN (07:51)
[2024-11-20 13:27] LABS: ABG BASE EXCESS 7.2 mmol/L (-2.0-3.0); ABG HCO3 36.4 mmol/L (21.0-28.0); ABG OXYGEN SATURATION 98.7 % (94.0-98.0); ABG PO2 (T) 132.7 mmHg (83.0-108.0); ALLEN'S TEST POSITIVE; FCOHb 0.4 % (0.5-1.5); FHHb 1.3 % (0.0-5.0); FLOW 6 L/min; FMetHb 0.2 % (0.0-1.5); FO2Hb 98.1 % (94.0-98.0); MODE NASAL CANNULA; PATIENT TEMPERATURE 36.7; TOTAL HEMOGLOBIN 11.6 G/dl (12.0-16.0)
--- NOTE | 2024-11-20 14:48 | PROGRESS NOTE- Residence ---
Progress Note - Resident Providers to CC Resident Creating Document: CHANDRIKA SOFIA RES ~ Antibiotic Timeout Antibiotic Ordered?: No Subjective Patient seen and examined at bedside. She is responding, more alert, awake and oriented today, was on BiPAP overnight. States she has not had a bowel movement in four days. No other concerns or complaints at this time. Objective Vital Signs Date Time Temp Pulse Resp B/P (MAP) Pulse Ox O2 Delivery O2 Flow Rate FiO2 11/20/24 10:59 125 107/47 11/20/24 08:00 25 96 Nasal Cannula 6.0 11/20/24 06:00 98.0 35 Result Diagram: 11/20/24 0544 11/20/24 0544 General: Alert and awake, no acute distress HEENT: Conjunctiva pink, Sclera clear, Mucus Membranes moist. Neck: Supple without masses and tenderness. Resp: Unlabored. Right-sided basal crackles Heart: Irregularly irregular rhythm, variable S1, no rub, murmur or gallop. Abdomen: Soft and non tender no organomegaly. Normal bowel sounds x4 quadrant normoactive. No guarding or rigidity. Extremities: Normal ROM, no swelling, nontender. No cyanosis,clubbing or edema. 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 Assessment Assessment Patient is currently altered and barely arousable, unable to provide a history at this time. 78-year-old female with history of AFib, obstructive sleep apnea, hyperlipidemia, hypertension, hypothyroid, CHF preserved EF, chronic hypoxic respiratory failure baseline 3 L oxygen presented to the ED from [facility] for altered level of consciousness. Plan Plan Altered level of consciousness Metabolic encephalopathy Respiratory acidosis with metabolic compensation Obesity hypoventilation syndrome Acute on chronic hypoxic respiratory failure Acute exacerbation of CHF with preserved EF Uses 3 L oxygen nasal cannula at baseline, currently on 6 L oxygen normal breather WBCs, procalcitonin lactic acid within normal limits Follow up with UA and U tox CXR: Small bilateral pleural effusion and pulmonary vascular congestion Started IV Lasix Breathing treatments p.r.n. 11/20/2024 Repeat ABG: Appears to be around the same pH 7.2, pCO2 79 and bicarb 36.4 BiPAP as needed Continue Lasix 20 IV b.i.d. F/w with urine analysis AFib RVR AFib with heart rate in 130s Currently on the Cardizem drip 11/20/2024 Continue Cardizem drip at 5 mL/hours, taper and switch to p.o. meds Takes Coreg and digoxin home medication Awaiting med rec Code Status: Full code DVT prophylaxis: Eliquis after med rec is done Analgesia/sedation: None Line/tube: PIV GI prophylaxis: None Nutrition: Heart healthy Prognosis: Guarded Disposition: Continue medical management. Chandrika Sofia MD. IM Resident PGY-2 Date of Service: Nov 20, 2024 Billing Provider: BRENT MACKEY MD Common Visit Codes: [id number] INP/OBS CARE(HIGH) CHANDRIKA SOFIA, RES Nov 20, 2024 14:48 BRENT MACKEY MD Nov 20, 2024 17:46
[2024-11-20] MEDS ORDERED: CARV-49 PO (15:04)
[2024-11-20] MEDS ORDERED: FURO-149 PO (15:04)
[2024-11-20] MEDS ORDERED: LEVO125C5 PO (15:04)
[2024-11-20] MEDS ORDERED: LIOT25TA12 PO (15:04)
[2024-11-20] MEDS: docusate sod 100mg capsule PO SCH (19:08)
[2024-11-20] MEDS: Melatonin 3mg tablet PO PRN (21:47)
[2024-11-21] VITALS (22 sets, daily range): BP systolic 96–113; BP diastolic 45–63; PULSE 77–105; RESP 13–34; TEMP 97.3–98.5; O2SAT 86–100
[2024-11-21] MEDS: albuterol 2.5 MG/3 ML nebule NEB PRN (02:15)
--- NOTE | 2024-11-21 03:19 | CARDIOLOGY REPORT ---
APPROVED REPORT EXAM: Comprehensive 2D, Doppler, and color-flow Echocardiogram. Patient Location: [address] Blood Pressure: 107/47 mmHg Heart Rate: 98-107 bpm Rhythm: Atrial Fibrillation Indications Arrhythmia Atrial Fibrillation with RVR Chronic Hypoxic Respiratory Failure Heart Failure with Preserved EF Data Architect Manager: MD Barrington Previous echo: 07/03/2024 [facility] EF:55-60%, mild JAYLA 1.71 cmsq, Peak/Mean 38/19 mmHg, trace AI, PA sys pressure 45 mmHg Hx of Atrial Fibrillation Hypertension DM II LESLIE ALOC 2D Dimensions RVDd 4.1 cm LA Diam5.0 cm IVSd 1.3 (0.7-1.1cm) LVDd 5.5 cm PWd 1.2 (0.7-1.1cm) IVSs 1.4 (0.8-1.2cm) RA Minor4.7 cmLVDs 4.1 (2.5-4.0cm) PWs 1.2 (0.8-1.2cm) LVOT Diameter 2.13 (1.8-2.4cm) LVEF(%) 48.8 (>50%) IVC 16.07 mm FS (%) 24.9 % SV 69.5 ml CO 4.6 L/min M-Mode Dimensions RVDd 3.48 (2.1-3.2cm) Left Atrium(MM) 3.88 (2.5-4.0cm) IVSd 1.03 (0.7-1.1cm) LVDd 4.53 (4.0-5.6cm) Aortic Root 3.37 (2.2-3.7cm) PWd 1.13 (0.7-1.1cm) Aortic Cusp Exc 0.95 (1.5-2.0cm) IVSs 1.03 cm LVDs 3.43 (2.0-3.8cm) FS (%) 24 % PWs 1.50 cm ESV(Teich) 48.6 ml LVEF(%) 48 (>50%) Aortic Valve AoV Peak Omari. 278.0 cm/s AoV VTI 51.8 cm AO Peak GR. 30.9 mmHg AO Mean GR. 17 mmHg LVOT VTI 21.75 cm LVOT Peak Omari. 127.9 cm/s JAYLA(VTI)/BSA 1.51 cm2/m2 JAYLA (VTI) 1.51 cm2 Mitral Valve MV Peak Gr. 9 mmHg MV Mean Gr. 3 mmHg MV LWym336.4 cm/sMV VMean87.3 cm/s MVA VTI3.32 cm2MV VTI23.4 cm Tricuspid Valve TR P. Velocity 347 cm/s RAP ESTIMATE 10 mmHg TR Peak Gr. 48 mmHg RVSP 58 mmHg LEFT VENTRICLE Normal LV size with mildly reduced function. Mild concentric hypertrophy. Overall LVEF is around 50%. RIGHT VENTRICLE Right ventricle is moderate to severely dilated with reduced systolic function. Estimated PA systolic pressue is 58 mmHg. ATRIA Left atrium is severely dilated. Right atrium is moderately dilated. AORTIC VALVE Trileaflet AV appears calcified with mild stenosis. JAYLA is measured at 1.51 cmsq. Peak / mean gradien ts of 31/17 mmHG. Peak velocity is measured at 278 cm/sec. Trace insufficiency. MITRAL VALVE Mild MV annular calcification without stenosis. Mild regurgitation. TRICUSPID VALVE TV appears structurally normal with mild regurgitation. PULMONIC VALVE Pulmonic valve is not well visualized. GREAT VESSELS The aortic root is normal in size. IVC is normal in size and collapses less than 50% with inspiration . PERICARDIUM Normal pericardium. No pericardial effusion seen. Other Information Study Quality: Poor. TDS due to body habitus and respiratory status. Conclusion Normal LV size with mildly reduced function. Mild concentric hypertrophy. Overall LVEF is around 50 %. Right ventricle is moderate to severely dilated with reduced systolic function. Estimated PA systolic pressue is 58 mmHg. Left atrium is severely dilated. Right atrium is moderately dilated. Trileaflet AV appears calcified with mild stenosis. JAYLA is measured at 1.51 cmsq. Peak / mean grad ients of 31/17 mmHG. Peak velocity is measured at 278 cm/sec. Trace insufficiency. Mild MV annular calcification without stenosis. Mild regurgitation. TV appears structurally normal with mild regurgitation. Normal pericardium. No pericardial effusion seen.
[2024-11-21] MEDS: guaiFENesin 200 MG/10 ML oral syrup UD cup PO PRN ×2 (05:39→19:33)
[2024-11-21 06:31] LABS: ALANINE AMINOTRANSFERASE 9 U/L (12-78); ALBUMIN 2.2 G/DL (3.4-5.0); ALBUMIN/GLOBULIN RATIO 0.6 (1.1-1.5); ALKALINE PHOSPHATASE 60 IU/L (46-116); ANION GAP 1 (8-16); ASPARTATE AMINO TRANSFERASE 19 U/L (10-37); BILIRUBIN,TOTAL 0.9 MG/DL (0.1-1.0); BLOOD UREA NITROGEN 13 MG/DL (7-18); BUN/CREATININE RATIO 17.8 (10.0-20.0); CALCIUM 9.4 MG/DL (8.5-10.1); CHLORIDE 102 MMOL/L (99-107); CREATININE 0.73 MG/DL (0.40-0.90); GLUCOSE 81 MG/DL (70-104); POTASSIUM 3.5 MMOL/L (3.5-5.1); SODIUM 143 MMOL/L (135-145); TOTAL CARBON DIOXIDE 39.8 MMOL/L (24-32); TOTAL PROTEIN 5.7 G/DL (6.4-8.2); eCRCL 63 ML/MIN; eGFR 77 ML/MIN
[2024-11-21 06:36] LABS: BASOPHILS % (AUTO) 0.5 % (0-1); EOSINOPHILS # (AUTO) 0.2 X10'3 (0-0.9); EOSINOPHILS % (AUTO) 2.6 % (0-6); HEMATOCRIT 30.9 % (35.0-45.0); HEMOGLOBIN 10.4 g/dl (12.0-16.0); LYMPHOCYTES # (AUTO) 1.3 X10'3 (1.1-4.8); MEAN CORPUSCULAR HEMOGLOBIN 30.6 PG (27.0-31.0); MEAN CORPUSCULAR HGB CONC 33.6 g/dL (33.0-36.5); MEAN CORPUSCULAR VOLUME 91.3 FL (78-98); MEAN PLATELET VOLUME 8.6 FL (7.4-10.4); MONOCYTES # (AUTO) 0.8 X10'3 (0-0.9); MONOCYTES % (AUTO) 11.8 % (2-12); NEUTROPHILS # (AUTO) 4.7 X10'3 (1.8-7.7); NEUTROPHILS % (AUTO) 67.1 % (42-75); PLATELET COUNT 151 X10'3 (140-440); RED BLOOD COUNT 3.39 X10'6 (4.20-5.60); RED CELL DISTRIBUTION WIDTH 13.9 % (11.5-14.5)
[2024-11-21 09:38] LABS: HEMOGLOBIN A1C 4.5 % (4.5-6.2)
[2024-11-21] MEDS: diltiazem 30mg tablet PO SCH (09:52)
[2024-11-21] MEDS: carvedilol 6.25mg tablet PO ONE (09:52)
--- NOTE | 2024-11-21 15:36 | PROGRESS NOTE- Residence ---
Progress Note - Resident Providers to CC Resident Creating Document: WILFRED ARAGON, RES ~ Antibiotic Timeout Antibiotic Ordered?: No Subjective The patient has been evaluated at the bedside. The patient currently awake, alert to person, place and time. Objective Vital Signs Date Time Temp Pulse Resp B/P (MAP) Pulse Ox O2 Delivery O2 Flow Rate FiO2 11/21/24 11:00 97.3 89 13 107/45 (65) 98 Nasal Cannula 4.0 11/21/24 09:05 30 Physical exam: General: Well alert, well oriented, not confused, not agitated, not in acute distress, well cooperated during the physical. HEENT: Conjunctive are pink, sclerae clear, no icterus, pupil is equal in both sides, reactive to light, no ear discharge, no pharyngeal erythema or an edema. Neck: Supple, no JVD, no lymphadenopathy and thyromegaly. Chest: Equal air entry on both lungs, coarse sounds bilaterally. Cardiovascular: S1-S2 regular sinus rhythm and, regular rate, no gallops, no rubs, no murmurs Abdomen: No visible peristalsis, Bowel sounds present on auscultation, soft, nontender, no guarding, no rigidity Extremities: No obvious deformities, no pitting edema bilaterally, capillary refill intact, peripheral pulsations are intact on both sides Central Nervous System: No focal neurological deficits, no motor or sensory weakness in all 4 extremities, could move all 4 extremities, 2+ deep tendon reflexes, negative Babinski. Musculoskeletal: No joint swelling, deformities, inflammations, and no scoliosis and back tenderness Skin: Warm and dry. Result Diagram: 11/21/2452011/21/24520 Assessment Assessment 78-year-old female with history of AFib, obstructive sleep apnea, hyperlipidemia, hypertension, hypothyroid, CHF preserved EF, chronic hypoxic respiratory failure baseline 3 L oxygen presented to the ED from [facility] for altered level of consciousness. Plan Plan Altered level of consciousness Metabolic encephalopathy Respiratory acidosis with metabolic compensation Obesity hypoventilation syndrome Acute on chronic hypoxic respiratory failure Acute exacerbation of CHF with preserved EF Uses 3 L oxygen nasal cannula at baseline, currently on 6 L oxygen normal breather WBCs, procalcitonin lactic acid within normal limits Follow up with UA and U tox CXR: Small bilateral pleural effusion and pulmonary vascular congestion Started IV Lasix Breathing treatments p.r.n. 11/20/2024 Repeat ABG: Appears to be around the same pH 7.2, pCO2 79 and bicarb 36.4 BiPAP as needed Continue Lasix 20 IV b.i.d. F/w with urine analysis 11/21/2024 Currently on nasal cannula 5 L, oxygen saturation 98%. Echocardiogram: Normal LV size with mildly reduced function. Mild concentric hypertrophy. Overall LVEF is around 50%. Right ventricle is moderate to severely dilated with reduced systolic function. Estimated PA systolic pressue is 58 mmHg. Left atrium is severely dilated. Right atrium is moderately dilated. Trileaflet AV appears calcified with mild stenosis. JAYLA is measured at 1.51 cmsq. Peak / mean gradients of 31/17 mmHG. Peak velocity is measured at 278 cm/sec. Trace insufficiency. Mild MV annular calcification without stenosis. Mild regurgitation. TV appears structurally normal with mild regurgitation. Normal pericardium. No pericardial effusion seen. Home medication albuterol as needed. Gaifenesin 100 mg q.4h PRN. Lasix 20 mg IV b.i.d. Urinalysis still pending. BiPAP at night. AFib RVR AFib with heart rate in 130s Currently on the Cardizem drip 11/20/2024 Continue Cardizem drip at 5 mL/hours, taper and switch to p.o. meds Takes Coreg and digoxin home medication 11/21/2024 Current heart rate 89. Stopped Cardizem drip. Started on diltiazem 30 mg q.6h. Eliquis 5 mg b.i.d. Normocytic normochromic anemia: Hemoglobin 10.4. Hematocrit 30.9, MCV 91.3. Follow-up iron studies. Hypothyroidism: Levothyroxine 125 mcg daily. Code Status: Full code DVT prophylaxis: Eliquis. Analgesia/sedation: None Line/tube: PIV GI prophylaxis: None Nutrition: Heart healthy Prognosis: Guarded Disposition: Continue medical management. Wilfred Finnegan Internal Medicine Resident [facility] Date of Service: Nov 21, 2024 Billing Provider: BRENT MACKEY MD Common Visit Codes: [id number] INP/OBS CARE(HIGH) WILFRED ARAGON, RES Nov 21, 2024 15:36 BRENT MACKEY MD Nov 21, 2024 17:55
[2024-11-21 16:53] LABS: ABG BASE EXCESS 12.4 mmol/L (-2.0-3.0); ABG HCO3 42.7 mmol/L (21.0-28.0); ABG PCO2 (T) 92.2 mmHg (32.0-45.0); ABG PH (T) 7.282 (7.350-7.450); ALLEN'S TEST POSITIVE; FCOHb 0.5 % (0.5-1.5); FLOW 4 L/min; FMetHb 0.1 % (0.0-1.5); FO2Hb 94.4 % (94.0-98.0); MODE NASAL CANNULA; PATIENT TEMPERATURE 36.6; TOTAL HEMOGLOBIN 11.7 G/dl (12.0-16.0)
[2024-11-21] MEDS: acetaminophen 325mg tablet PO PRN (19:34)
[2024-11-21] MEDS: apixaban 5mg tablet PO SCH (19:34)
[2024-11-21] MEDS: carvedilol 6.25mg tablet PO SCH (21:09)
[2024-11-22] VITALS (8 sets, daily range): BP systolic 100–106; BP diastolic 48–58; PULSE 80–92; RESP 17–32; TEMP 97.6–98.3; O2SAT 90–97
[2024-11-22 06:52] LABS: BASOPHILS % (AUTO) 0.4 % (0-1); EOSINOPHILS # (AUTO) 0.1 X10'3 (0-0.9); EOSINOPHILS % (AUTO) 1.8 % (0-6); HEMATOCRIT 29.7 % (35.0-45.0); HEMOGLOBIN 10.1 g/dl (12.0-16.0); LYMPHOCYTES # (AUTO) 1.1 X10'3 (1.1-4.8); LYMPHOCYTES % (AUTO) 14.6 % (21-51); MEAN CORPUSCULAR VOLUME 91.2 FL (78-98); MEAN PLATELET VOLUME 8.4 FL (7.4-10.4); MONOCYTES # (AUTO) 0.8 X10'3 (0-0.9); MONOCYTES % (AUTO) 10.1 % (2-12); NEUTROPHILS # (AUTO) 5.6 X10'3 (1.8-7.7); NEUTROPHILS % (AUTO) 73.1 % (42-75); PLATELET COUNT 151 X10'3 (140-440); RED BLOOD COUNT 3.26 X10'6 (4.20-5.60); RED CELL DISTRIBUTION WIDTH 13.7 % (11.5-14.5); WHITE BLOOD COUNT 7.7 X10'3 (4.5-11.0)
[2024-11-22 07:05] LABS: ALANINE AMINOTRANSFERASE 8 U/L (12-78); ALBUMIN 2.2 G/DL (3.4-5.0); ALBUMIN/GLOBULIN RATIO 0.6 (1.1-1.5); ALKALINE PHOSPHATASE 60 IU/L (46-116); ANION GAP 5 (8-16); ASPARTATE AMINO TRANSFERASE 16 U/L (10-37); BLOOD UREA NITROGEN 14 MG/DL (7-18); BUN/CREATININE RATIO 16.1 (10.0-20.0); CALCIUM 9.3 MG/DL (8.5-10.1); CHLORIDE 100 MMOL/L (99-107); CREATININE 0.87 MG/DL (0.40-0.90); FERRITIN 574 NG/ML (8-252); GLUCOSE 82 MG/DL (70-104); POTASSIUM 3.3 MMOL/L (3.5-5.1); SODIUM 145 MMOL/L (135-145); TOTAL CARBON DIOXIDE 39.8 MMOL/L (24-32); TOTAL PROTEIN 5.8 G/DL (6.4-8.2); eCRCL 53 ML/MIN; eGFR 63 ML/MIN
[2024-11-22 07:27] LABS: % IRON SATURATION 18 % (11-46); IRON 35 UG/DL (49-151); TOTAL IRON BINDING CAPACITY 191 UG/DL (259-388)
[2024-11-22] MEDS: Fluticasone/Vilanterol (Breo Ellipta 200-25 Mcg INH) IH SCH (08:00)
[2024-11-22] MEDS: magnesium oxide 400mg tablet PO SCH (08:24)
[2024-11-22] MEDS: potassium Cl 20 mEq SR tablet PO SCH (08:24)
[2024-11-22] MEDS: FLUoxetine 10mg capsule PO SCH (08:25)
[2024-11-22] MEDS: levoTHYROXINE 125mcg tablet PO SCH (08:25)
[2024-11-22] MEDS: bisacodyl 10mg suppository rectal RC STA (11:33)
--- NOTE | 2024-11-22 15:45 | DISCHARGE SUMMARY-Residence ---
Discharge Summary Providers to CC Resident Creating Document: CANDIDA SOFIA RES ~ Discharge Summary Admission Diagnosis: Afib with RVR , Diastolic CHF , ALOC Hospital Course DATE OF ADMISSION: 11/19/2024 DATE OF DISCHARGE: 11/22/2024 HOSPITAL COURSE SAME MENTIONED DISCHARGE SUMMARY. Discharge Diagnosis\Comment: Altered level of consciousness Metabolic encephalopathy Respiratory acidosis with metabolic compensation Obesity hypoventilation syndrome Acute on chronic hypoxic respiratory failure Acute exacerbation of CHF with preserved EF AFib RVR History of anemia normocytic normochromic History of hypothyroid on levothyroxine Operations\Procedures: None Consultants: None Complications: None Condition on DC: Stable for transfer Discharge Summary: As per HPI: Patient is currently altered and barely arousable, unable to provide a history at this time. 78-year-old female with history of AFib, obstructive sleep apnea, hyperlipidemia, hypertension, hypothyroid, CHF preserved EF, chronic hypoxic respiratory failure baseline 3 L oxygen presented to the ED from [facility] for altered level of consciousness. On further evaluation she was found to be in AFib with RVR. Currently in AFib with heart rate 108, on the Cardizem drip. Was given Lasix and IV Cardizem in the ED. Patient has a POLST with states full code. Hospital course: Further evaluation she was on 6 L oxygen, her baseline is 3 L. WBCs procalcitonin and lactic acidosis and normal limits. Chest x-ray shows small bilateral pleural effusion and pulmonary vascular congestion she was started on IV Lasix and breathing treatments p.r.n.. She was also in AFib with RVR heart rate in 130s was started on the Cardizem drip. ABG was done pH 7.2, pCO2 79 and bicarb 36.4 was started on BiPAP p.r.n.. The next morning Cardizem drip was discontinued and was switched to p.o. meds, Coreg 6.25 p.o. b.i.d. and Cardizem 30 p.o. q.6 blood pressure and heart rate this morning 101/48, 80. Per initially awaiting a bowel movement and had ordered a suppository, but even before the suppository was administered she had a bowel movement. PT worked with her and cleared her to going back to her previous living environment. She is going back to [facility] rehab. Her hospital course is uncomplicated she is hemodynamically stable on the day of discharge and her physical exam is as follows: General: Alert and awake, no acute distress HEENT: Conjunctiva pink, Sclera clear, Mucus Membranes moist. Neck: Supple without masses and tenderness. Resp: Unlabored. Right-sided fine basal crackles improving Heart: Irregularly irregular rhythm, variable S1, no rub, murmur or gallop. Abdomen: Soft and non tender no organomegaly. Normal bowel sounds x4 quadrant normoactive. No guarding or rigidity. Extremities: Normal ROM, no swelling, nontender. No cyanosis,clubbing or edema. CONDUIT REAMER OPERATOR: Unable to determine Skin: Warm and Dry. Patient is being discharged to [facility] rehab. Laboratory Tests Test 11/21/24 05:21 11/21/24 16:49 11/22/24 05:59 White Blood Count 7.0 X10'3 7.7 X10'3 Red Blood Count 3.39 X10'6 3.26 X10'6 Hemoglobin 10.4 g/dl 10.1 g/dl Hematocrit 30.9 % 29.7 % Mean Corpuscular Volume 91.3 FL 91.2 FL Mean Corpuscular Hemoglobin 30.6 PG 31.0 PG Mean Corpuscular Hemoglobin Concent 33.6 g/dL 34.0 g/dL Red Cell Distribution Width 13.9 % 13.7 % Platelet Count 151 X10'3 151 X10'3 Mean Platelet Volume 8.6 FL 8.4 FL Neutrophils (%) (Auto) 67.1 % 73.1 % Lymphocytes (%) (Auto) 18.0 % 14.6 % Monocytes (%) (Auto) 11.8 % 10.1 % Eosinophils (%) (Auto) 2.6 % 1.8 % Basophils (%) (Auto) 0.5 % 0.4 % Neutrophils # (Auto) 4.7 X10'3 5.6 X10'3 Lymphocytes # (Auto) 1.3 X10'3 1.1 X10'3 Monocytes # (Auto) 0.8 X10'3 0.8 X10'3 Eosinophils # (Auto) 0.2 X10'3 0.1 X10'3 Basophils # (Auto) 0.0 X10'3 0.0 X10'3 CBC Comment Sodium Level 143 MMOL/L 145 MMOL/L Potassium Level 3.5 MMOL/L 3.3 MMOL/L Chloride Level 102 MMOL/L 100 MMOL/L Carbon Dioxide Level 39.8 MMOL/L 39.8 MMOL/L Anion Gap 1 5 Blood Urea Nitrogen 13 MG/DL 14 MG/DL Creatinine 0.73 MG/DL 0.87 MG/DL Estimated GFR/1.73 m2 77 ML/MIN 63 ML/MIN BUN/Creatinine Ratio 17.8 16.1 Glucose Level 81 MG/DL 82 MG/DL Hemoglobin A1c 4.5 % Calcium Level 9.4 MG/DL 9.3 MG/DL Total Bilirubin 0.9 MG/DL 1.0 MG/DL Aspartate Amino Transf (AST/SGOT) 19 U/L 16 U/L Alanine Aminotransferase (ALT/SGPT) 9 U/L 8 U/L Alkaline Phosphatase 60 IU/L 60 IU/L Total Protein 5.7 G/DL 5.8 G/DL Albumin 2.2 G/DL 2.2 G/DL Globulin 3.5 G/DL 3.6 G/DL Albumin/Globulin Ratio 0.6 0.6 Chemistry Comments Blood Gas Specimen Type Arterial Blood Gas Puncture Site Lr O2 Saturation 95.0 % Arterial Blood pH (Temp corrected) 7.282 Arterial Blood pCO2 (Temp correct) 92.2 mmHg Arterial Blood pO2 (Temp corrected) 79.0 mmHg Arterial Blood PO2/FiO2 Ratio 2.25 mmHg/% Arterial Blood HCO3 42.7 mmol/L Arterial Blood Base Excess 12.4 mmol/L Arterial Blood Oxyhemoglobin 94.4 % Arterial Blood Carboxyhemoglobin 0.5 % Arterial Blood Methemoglobin 0.1 % Arterial Blood Deoxyhemoglobin 5.0 % Sami Test Positive Blood Gas Hemoglobin 11.7 G/dl Blood Gas Temperature 36.6 Blood Gas Liter Flow 4 L/min Blood Gas Modality Nasal cannula FiO2 36.0 mmHg/% Blood Gas Critical Value Called To Dr james mullins Iron Level 35 UG/DL Total Iron Binding Capacity 191 UG/DL Percent Iron Saturation 18 % Ferritin 574 NG/ML *Problems/Diagnosis: (1) Acute on chronic systolic heart failure Status: Acute Total Time Spent on D/C: > 30 Minutes Date of Service: Nov 22, 2024 Billing Provider: BRENT MACKEY MD Common Visit Codes: [id number] DISCH DAY >30min CANDIDA SOFIA, JAJA Nov 22, 2024 15:45 BRENT MACKEY MD Nov 22, 2024 17:43
== END 2024-11-22 15:25 | DRG 291 ==
LOC: ER 09:55 → ED HOLD 15:06 → PCU 3S 20:04
PROVIDERS: ADMIT Internal Medicine; ATTEND Internal Medicine
PROC: 5A09357 Assistance with Respiratory Ventilation, Less than 24 Consecutive Hours, Continuous Positive Airway Pressure (ICD-10-PCS; principal; 2024-11-19)
PROC: 5A09357 Assistance with Respiratory Ventilation, Less than 24 Consecutive Hours, Continuous Positive Airway Pressure (ICD-10-PCS; 2024-11-20)
PROC: 5A09357 Assistance with Respiratory Ventilation, Less than 24 Consecutive Hours, Continuous Positive Airway Pressure (ICD-10-PCS; 2024-11-21)
PROC: 5A09357 Assistance with Respiratory Ventilation, Less than 24 Consecutive Hours, Continuous Positive Airway Pressure (ICD-10-PCS; 2024-11-22)
DX: I11.0 Hypertensive heart disease with heart failure (principal); G93.41 Metabolic encephalopathy; J96.21 Acute and chronic respiratory failure with hypoxia; I50.33 Acute on chronic diastolic (congestive) heart failure; J44.1 Chronic obstructive pulmonary disease with (acute) exacerbation; E87.4 Mixed disorder of acid-base balance; E66.2 Morbid (severe) obesity with alveolar hypoventilation; I48.91 Unspecified atrial fibrillation; E89.0 Postprocedural hypothyroidism; Z68.31 Body mass index [BMI] 31.0-31.9, adult; E11.9 Type 2 diabetes mellitus without complications; E78.00 Pure hypercholesterolemia, unspecified; Z85.3 Personal history of malignant neoplasm of breast; Z90.710 Acquired absence of both cervix and uterus; G89.29 Other chronic pain; M54.9 Dorsalgia, unspecified
CPT/HCPCS: 36415; 36600; 71045; 80048; 80053; 82728; 82803; 83036; 83540; 83550; 83605; 83880; 84145; 84484; 85018; 85025; 87040; 87081; 93005; 93306; 94640; 94660; 94760; 96374; 96375; 96376; 97161; 97530; 99291; A4615; A6213; A6250; G0378; J1644; J1938; J3490; J7030

== ENCOUNTER 2024-11-24 07:34 | Inpatient (IN) | payer MEDICARE ==
[~2024-11-24] VITALS: Ht 170.2 cm; Wt 95.0 kg
[2024-11-24] VITALS (13 sets, daily range): BP systolic 121–140; BP diastolic 58–80; PULSE 70–129; RESP 13–24; TEMP 97.4–97.6; O2SAT 91–99
[~2024-11-24 07:34] MED LIST changes: +CARV-49 PO; -CARV3.122 PO; -FERR-39 PO; +FURO-149 PO; -FURO-150 PO; -IPRA3AMP9 NEB; +LEVO125C5 PO; -LEVO150T8 PO; +LIOT25TA12 PO; -LIOT5TAB10 PO; -LORA10TA7 PO; -MELA5TAB12 PO; -METO5TAB7 PO; -PANT-47 PO; -SULF1TAB48 PO; -ZOLP5TAB8 PO
--- NOTE | 2024-11-24 07:44 | Physician Documentation ---
History of Present Illness ~ Stated Complaint: ALOC Time Seen by MD: 07:41 Primary Medical Doctor: Dr. wong Source: EMS Exam Limitations: clinical condition HPI 78-year-old female who comes from a [facility] acute [facility], by EMS, with altered mental status Unable to obtain any history from the patient. She is able to state her name and follows some simple commands, but otherwise provides no history. Per EMS, she has reportedly been altered for 10-24 hours. She is on oxygen at baseline, was on 3 L when they arrived by face mask. History otherwise limited Medication Reconciliation Allergies: Coded Allergies: morphine (Unverified Allergy, Severe, 11/19/24) codeine (Verified Allergy, Unknown, 11/19/24) cortisone (Unverified Allergy, Unknown, 11/19/24) PT HAS RECEIVED METHYLPREDNISOLONE IN PAST, 2023 Scheduled Amitriptyline Hcl (Elavil), 1 TAB PO HS, (Reported) Apixaban (Eliquis), 1 TAB PO BID, (Reported) Ascorbic Acid* (Vitamin C*), 4 TAB PO DAILY, (Reported) Carvedilol (Coreg), 1 TAB PO BID, (Reported) Cholecalciferol (Vitamin D), 1 TAB PO DAILY, (Reported) Fluoxetine HCl (Fluoxetine HCl), 1 CAP PO DAILY, (Reported) Fluticasone/Vilanterol (Breo Ellipta 200-25 Mcg INH), 1 PUFFS INH DAILY, (Reported) Furosemide (Lasix), 1 TAB PO BID, (Reported) Hydroxyzine Hcl* (Atarax*), 1 TAB PO HS, (Reported) Levothyroxine Sodium (Levothyroxine), 1 CAP PO DAILY, (Reported) Liothyronine Sodium* (Liothyronine Sodium*), 1 TAB PO DAILY, (Reported) Magnesium Oxide (Magnesium), 400 MG PO DAILY, (Reported) Metformin Hcl* (Glucophage*), 1 TAB PO BID, (Reported) Potassium Chloride (Klor-Con), 20 MEQ PO DAILY, (Reported) Ubidecarenone (Co Q-10), 1 CAP PO DAILY, (Reported) Vitamin B Complex (B Complex), 1 TAB PO DAILY, (Reported) Zinc Sulfate (Zinc-220), 1 CAP PO DAILY, (Reported) Scheduled PRN Calcium Carbonate (Calcium Carbonate), 1 TAB PO Q4H PRN for indige stion/dyspepsia, (Reported) Discontinued Medications Carvedilol (Carvedilol), 1 TAB PO Q12H, (Reported) Discontinued Reason: patient no longer taking Ferrous Sulfate (Ferrous Sulfate), 1 TAB PO DAILY, (Reported) Discontinued Reason: patient no longer taking Furosemide* (Lasix*), 40 MG PO DAILY, (Reported) Discontinued Reason: patient no longer taking Ipratropium/Albuterol Sulfate (IPRAT-ALBUT 0.5-3(2.5) MG/3 ML nebule), 1 VIAL NEB Q12H, (Reported) Discontinued Reason: patient no longer taking Levothyroxine Sodium (Levothyroxine Sodium), 150 MCG PO DAILY, (Reported) Discontinued Reason: patient no longer taking Liothyronine Sodium (Liothyronine Sodium), 1 TAB PO DAILY, (Reported) Discontinued Reason: patient no longer taking Loratadine (Loratadine), 1 TAB PO DAILY, (Reported) Discontinued Reason: patient no longer taking Melatonin (Melatonin), 1 TAB PO HS PRN for sleep, (Reported) Discontinued Reason: patient no longer taking Metolazone (Metolazone), 1 TAB PO, (Reported) Discontinued Reason: patient no longer taking Pantoprazole Sodium (PROTONIX tablet), 1 TAB PO DAILY, (Reported) Discontinued Reason: patient no longer taking Sulfamethoxazole/Trimethoprim (Bactrim 400-80 Mg Tablet), 1 TAB PO Q12H, (Reported) Discontinued Reason: patient no longer taking Zolpidem Tartrate (Zolpidem Tartrate), 5 MG PO DAILY PRN for sleep, (Reported) Discontinued Reason: patient no longer taking Past Medical History Past Medical History: Atrial Fibrillation, High Cholesterol, Hypertension, Asthma, UTI, Diabetes, Hypothyroidism, Chronic Back Pain, Breast Cancer Past Surgical History: cholecystectomy, hysterectomy, orthopedic surgeries Other Past Surgical History: Thyroidectomy Patient History: FH: heart disease FATHER FH: lupus Daughter Alcohol Use: None Drug Use: none Lives with: Spouse Lives In: Home Occupation: retired Review of Systems Unable to obtain complete ROS: altered mental status Physical Exam Physical Exam General: This is an ill-appearing older woman, minimally responsive HEENT: Atraumatic, oropharynx appears dry Heart: Regular rate and rhythm, normal-appearing peripheral perfusion Lungs: Mild tachypnea, with coarse breath sounds diffusely, hypoxia on room air Abdomen: Soft, nondistended, nontender all quadrants Extremities: Warm and well-perfused Neuro: The patient is somnolent, but does respond to stimuli, does state her name and follows some simple commands, does slightly move all 4 extremities Procedures Additional Procedures Procedure Note Critical Care Note The very real possibility of a deterioration of this patient's condition required the highest level of my preparedness for sudden, emergent intervention. I provided critical care services, which included medication orders, frequent reevaluations of the patient's condition and response to treatment, ordering and reviewing test results, and discussing the case with various consultants. Excludes time spent performing separately billable procedures. The critical care time associated with the care of the patient was 45 minutes in the management of acute hypoxic and hypercarbic respiratory failure with altered mental status Progress Results/Orders Results/Orders Orders - CANELO MOSQUERA MD Drug Screen, Urine (11/24/24 07:41) Abg (Arterial Blood Gas) (11/24/24 ) Ct Head (11/24/24 08:39) Chest,Single View (11/24/24 07:42) Bipap/Cpap (11/24/24 08:16) Page Hospitalist (11/24/24 08:59) Completed Orders - CANELO MOSQUERA MD Cbc/Diff (11/24/24 07:41) CMP (11/24/24 07:41) Ethanol (11/24/24 07:41) LA (11/24/24 07:41) PBNP (11/24/24 07:41) TSH (11/24/24 07:41) Ct Head (11/24/24 08:39) Chest,Single View (11/24/24 07:42) Electrocardiogram (11/24/24 07:42) Vital Signs 11/24/24 11/24/24 11/24/24 11/24/24 07:39 07:58 08:18 09:42 Temp 97.8 Pulse 122 129 116 Resp 24 20 23 18 22 B/P (MAP) 121/67 Pulse Ox 97 91 99 O2 Flow Rate 2.0 FiO2 30 11/24/24 10:37 Pulse 110 Resp 22 22 Pulse Ox 93 FiO2 30 Laboratory Tests Test 11/24/24 07:54 11/24/24 07:55 11/24/24 07:59 11/24/24 09:26 White Blood Count 11.6 H Red Blood Count 3.81 L Hemoglobin 11.5 L Hematocrit 35.3 Mean Corpuscular Volume 92.7 Mean Corpuscular Hemoglobin 30.2 Mean Corpuscular Hemoglobin Concent 32.6 L Red Cell Distribution Width 13.7 Platelet Count 240 Mean Platelet Volume 7.9 Neutrophils (%) (Auto) 80.2 H Lymphocytes (%) (Auto) 11.1 L Monocytes (%) (Auto) 8.3 Eosinophils (%) (Auto) 0.2 Basophils (%) (Auto) 0.2 Neutrophils # (Auto) 9.3 H Lymphocytes # (Auto) 1.3 Monocytes # (Auto) 1.0 H Eosinophils # (Auto) 0.0 Basophils # (Auto) 0.0 CBC Comment Sodium Level 142 Potassium Level 3.9 Chloride Level 97 L Carbon Dioxide Level 48.9 *H Anion Gap -4 L Blood Urea Nitrogen 14 Creatinine 1.03 H Estimated GFR/1.73 m2 52 BUN/Creatinine Ratio 13.6 Glucose Level 124 H Lactic Acid Level 1.4 Calcium Level 9.8 Total Bilirubin 0.7 Aspartate Amino Transf (AST/SGOT) 22 Alanine Aminotransferase (ALT/SGPT) 9 L Alkaline Phosphatase 74 Pro-B-Type Natriuretic Peptide 7137 H Total Protein 7.3 Albumin 2.6 L Globulin 4.7 H Albumin/Globulin Ratio 0.6 L Thyroid Stimulating Hormone (TSH) 0.37 Chemistry Comments Ethyl Alcohol Level < 10 Blood Gas Specimen Type Arterial Arterial Blood Gas Puncture Site Lr Lr O2 Saturation 96.9 90.9 L Arterial Blood pH (Temp corrected) 7.244 *L 7.368 Arterial Blood pCO2 (Temp correct) 120.7 *H 76.9 *H Arterial Blood pO2 (Temp corrected) 102.7 61.9 L Arterial Blood PO2/FiO2 Ratio 2.10 2.12 Arterial Blood HCO3 51.3 H 43.4 H Arterial Blood Base Excess 17.9 H 14.5 H Arterial Blood Oxyhemoglobin 96.5 90.5 L Arterial Blood Carboxyhemoglobin 0.2 L 0.1 L Arterial Blood Methemoglobin 0.2 0.3 Arterial Blood Deoxyhemoglobin 3.1 9.1 H Sami Test Modified Positive Blood Gas Hemoglobin 13.6 12.6 Blood Gas Temperature 36.6 36.6 Blood Gas Liter Flow 8 Blood Gas Modality Mask - simple Mask - bipap FiO2 50.0 30.0 Blood Gas Critical Value Called To dr. lolita lackey md Blood Gas Set Respiration Rate 20 EKG/XRAY/CT/US/VASC/MRI Chest X-Ray : Additional Comments I personally reviewed the x-ray, and it shows: No acute changes compared to previous. There are some right lower lobe consolidation, but otherwise no new consolidation or edema CT : Impression I personally reviewed the CT scan, and this shows no intracranial hemorrhage, mass, or fracture Consults/PCP Consults/PCP : Additional Comment Consult: I spoke to the internal medicine service, for admission in the hospital Medical Decision Making Additional info obtained from: old records Findings Per chart review: The patient is recently admitted to the hospital and discharged for similar presentation Discharge Summary: As per HPI: Patient is currently altered and barely arousable, unable to provide a history at this time. 78-year-old female with history of AFib, obstructive sleep apnea, hyperlipidemia, hypertension, hypothyroid, CHF preserved EF, chronic hypoxic respiratory failure baseline 3 L oxygen presented to the ED from [facility] for altered level of consciousness. On further evaluation she was found to be in AFib with RVR. Currently in AFib with heart rate 108, on the Cardizem drip. Was given Lasix and IV Cardizem in the ED. Patient has a POLST with states full code. Hospital course: Further evaluation she was on 6 L oxygen, her baseline is 3 L. WBCs procalcitonin and lactic acidosis and normal limits. Chest x-ray shows small bilateral pleural effusion and pulmonary vascular congestion she was started on IV Lasix and breathing treatments p.r.n.. She was also in AFib with RVR heart rate in 130s was started on the Cardizem drip. ABG was done pH 7.2, pCO2 79 and bicarb 36.4 was started on BiPAP p.r.n.. The next morning Cardizem drip was discontinued and was switched to p.o. meds, Coreg 6.25 p.o. b.i.d. and Cardizem 30 p.o. q.6 blood pressure and heart rate this morning 101/48, 80. Per initially awaiting a bowel movement and had ordered a suppository, but even before the suppository was administered she had a bowel movement. PT worked with her and cleared her to going back to her previous living environment. She is going back to [facility] rehab. Differential Dx:Considerations: Include: dehydration, DKA, encephalopathy, hypoglycemia, hyponatremia, hypoxia, CVA, subarachnoid hemorrhage, drug overdose, encephalopathy, medication toxicity, infection - sepsis, infection - UTI, heart failure, renal failure, respiratory failure Assessment The patient presents with altered mental status, with a history of similar. On exam she is altered but does not have focal findings to suggest a stroke. Head CT without intracranial hemorrhage. ABG then returns with significant hypercarbia. She was started on BiPAP. Labs otherwise unremarkable and her chest x-ray does not show new findings compared to previous. She will be admitted to the medicine service for further treatment, with the primary cause of her altered mental status appearing to be hypercarbia secondary to chronic respiratory failure. Departure Impression: Primary Impression: Acute on chronic respiratory failure with hypercapnia Additional Impression: Altered mental status Referrals: NO PRIMARY CARE PROVIDER (PCP) Signature Scribe Signature: angella Attestation: CANELO Teixeira MD Nov 24, 2024 07:44
[2024-11-24 08:03] LABS: ABG BASE EXCESS 17.9 mmol/L (-2.0-3.0); ABG HCO3 51.3 mmol/L (21.0-28.0); ABG OXYGEN SATURATION 96.9 % (94.0-98.0); ABG PCO2 (T) 120.7 mmHg (32.0-45.0); ABG PH (T) 7.244 (7.350-7.450); ABG PO2 (T) 102.7 mmHg (83.0-108.0); ALLEN'S TEST Modified; FCOHb 0.2 % (0.5-1.5); FHHb 3.1 % (0.0-5.0); FLOW 8 L/min; FMetHb 0.2 % (0.0-1.5); FO2Hb 96.5 % (94.0-98.0); MODE MASK - SIMPLE; PATIENT TEMPERATURE 36.6; TOTAL HEMOGLOBIN 13.6 G/dl (12.0-16.0)
[2024-11-24 08:13] LABS: BASOPHILS % (AUTO) 0.2 % (0-1); EOSINOPHILS % (AUTO) 0.2 % (0-6); HEMATOCRIT 35.3 % (35.0-45.0); HEMOGLOBIN 11.5 g/dl (12.0-16.0); LYMPHOCYTES # (AUTO) 1.3 X10'3 (1.1-4.8); LYMPHOCYTES % (AUTO) 11.1 % (21-51); MEAN CORPUSCULAR HEMOGLOBIN 30.2 PG (27.0-31.0); MEAN CORPUSCULAR HGB CONC 32.6 g/dL (33.0-36.5); MEAN CORPUSCULAR VOLUME 92.7 FL (78-98); MEAN PLATELET VOLUME 7.9 FL (7.4-10.4); MONOCYTES % (AUTO) 8.3 % (2-12); NEUTROPHILS # (AUTO) 9.3 X10'3 (1.8-7.7); NEUTROPHILS % (AUTO) 80.2 % (42-75); PLATELET COUNT 240 X10'3 (140-440); RED BLOOD COUNT 3.81 X10'6 (4.20-5.60); RED CELL DISTRIBUTION WIDTH 13.7 % (11.5-14.5); WHITE BLOOD COUNT 11.6 X10'3 (4.5-11.0)
[2024-11-24 08:18] LABS: ALANINE AMINOTRANSFERASE 9 U/L (12-78); ALBUMIN 2.6 G/DL (3.4-5.0); ALBUMIN/GLOBULIN RATIO 0.6 (1.1-1.5); ALKALINE PHOSPHATASE 74 IU/L (46-116); ASPARTATE AMINO TRANSFERASE 22 U/L (10-37); BILIRUBIN,TOTAL 0.7 MG/DL (0.1-1.0); BLOOD UREA NITROGEN 14 MG/DL (7-18); BUN/CREATININE RATIO 13.6 (10.0-20.0); CALCIUM 9.8 MG/DL (8.5-10.1); CHLORIDE 97 MMOL/L (99-107); CREATININE 1.03 MG/DL (0.40-0.90); GLUCOSE 124 MG/DL (70-104); POTASSIUM 3.9 MMOL/L (3.5-5.1); SODIUM 142 MMOL/L (135-145); TOTAL PROTEIN 7.3 G/DL (6.4-8.2); eCRCL 44 ML/MIN; eGFR 52 ML/MIN
[2024-11-24 08:28] LABS: PRO BRAIN NATRIURETIC PEPTIDE 7137 PG/ML (0-450); THYROID STIMULATING HORMONE 0.37 ulU/ml (0.34-4.50)
--- NOTE | 2024-11-24 08:28 | ELECTROCARDIOGRAPH REPORT ---
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
--- NOTE | 2024-11-24 08:31 | RADIOLOGY REPORT ---
DI CHEST,SINGLE VIEW, HISTORY: Altered mental status, hypoxia COMPARISON: DI CHEST,SINGLE VIEW on DOS: 11/19/24, DI CHEST,SINGLE VIEW on DOS: 10/22/24, DI CHEST,SING LE VIEW on DOS: 09/09/24 DI CHEST,SINGLE VIEW on DOS: 11/19/24, DI CHEST,SINGLE VIEW on DOS: 10/22/24, DI CHEST,SINGLE VIEW on D OS: 09/09/24 TECHNICAL DATA: 1 view of the chest was obtained. FINDINGS: Lines and tubes: None Cardiomediastinal silhouette: Enlarged Pulmonary vasculature: normal Lung expansion: normal Lung airspace: bibasilar airpsace opacity. Lung interstitium: normal Pleura: Small right effusion. Pneumothorax: no Bones: Unremarkable Other: no IMPRESSION: There is bibasilar airspace opacity which could be consolidation period small right pleural effusion. Cardiomegaly.
[2024-11-24 08:51] LABS: ANION GAP -4 (8-16)
--- NOTE | 2024-11-24 08:53 | RADIOLOGY REPORT ---
EXAM: CT CT HEAD HISTORY: Altered mental status, on blood thinner COMPARISON: CT CT HEAD on DOS: 08/11/24, CT CT HEAD on DOS: 07/13/23 TECHNIQUE: Axial images of the head were obtained and reformatted in coronal and sagittal planes. All CT scans at this medical facility are performed using dose modulation techniques as appropriate t o a performed exam including the following: Automated exposure control was utilized; adjustment of th e MA and/or KV according to patient size; and use of iterative reconstruction technique. CT Dose: CTDI volume is 61 mGy. Dose-length product is 1089 mGy*cm FINDINGS: There is no evidence of acute intracranial hemorrhage, mass, mass effect midline shift. There is no h ydrocephalus or extra-axial fluid collection. There are chronic microvascular ischemic changes in the supratentorial white matter. Bob-white matter differentiation is maintained. The visualized paranasal sinuses and mastoid air cells are clear. The calvarium is intact. IMPRESSION: 1. No acute intracranial process. HS:Y
[2024-11-24 09:08] LABS: ETHANOL < 10 MG/DL (<10); TOTAL CARBON DIOXIDE 48.9 MMOL/L (24-32)
[2024-11-24 09:31] LABS: ABG BASE EXCESS 14.5 mmol/L (-2.0-3.0); ABG HCO3 43.4 mmol/L (21.0-28.0); ABG OXYGEN SATURATION 90.9 % (94.0-98.0); ABG PCO2 (T) 76.9 mmHg (32.0-45.0); ABG PH (T) 7.368 (7.350-7.450); ABG PO2 (T) 61.9 mmHg (83.0-108.0); ALLEN'S TEST POSITIVE; FCOHb 0.1 % (0.5-1.5); FHHb 9.1 % (0.0-5.0); FMetHb 0.3 % (0.0-1.5); FO2Hb 90.5 % (94.0-98.0); MODE MASK - BIPAP; PATIENT TEMPERATURE 36.6; RESPIRATORY RATE 20 b/min; TOTAL HEMOGLOBIN 12.6 G/dl (12.0-16.0)
[2024-11-24] MEDS ORDERED: magnesium Cl slow-release 64mg tablet PO PRN (10:05)
[2024-11-24] MEDS ORDERED: HYDROcodone/acetaminophen 10/325mg tab PO PRN (10:05)
[2024-11-24] MEDS ORDERED: magnesium hydroxide 30ml (MOM) UD suspension PO PRN (10:05)
[2024-11-24] MEDS ORDERED: magnesium sulf-water 4G/100mL 100 ML IV PRN (10:05)
[2024-11-24] MEDS ORDERED: HYDROcodone/acetaminophen 5mg/325mg tablet PO PRN (10:05)
[2024-11-24] MEDS ORDERED: magnesium sulf-water 2g/50mL 50 ML IV PRN (10:05)
[2024-11-24] MEDS ORDERED: morphine 2 MG/ML inj. syringe IV PRN (10:05)
[2024-11-24] MEDS ORDERED: acetaminophen 325mg tablet PO PRN (10:05)
[2024-11-24] MEDS ORDERED: potassium Cl 20 mEq SR tablet PO PRN ×2 (10:05)
[2024-11-24] MEDS: furosemide 10 MG/1 ML 10ml inj IV ONE (10:54)
[2024-11-24 12:04] LABS: URINE AMPHETAMINE SCREEN NEGATIVE (Neg); URINE BARBITUATE SCREEN NEGATIVE (Neg); URINE BENZODIAZEPINES SCREEN NEGATIVE (Neg); URINE CANNABINOID SCREEN NEGATIVE (Neg); URINE COCAINE SCREEN NEGATIVE (Neg); URINE METHADONE SCREEN NEGATIVE (Neg); URINE OPIATE SCREEN NEGATIVE (Neg); URINE PHENCYCLIDINE SCREEN NEGATIVE (Neg)
[2024-11-24] MEDS: diltiazem 30mg tablet PO ONE (12:06)
[2024-11-24 13:49] LABS: D-DIMER 1.78 MG/L FEU (0-0.50)
[2024-11-24] MEDS: acetaZOLAMIDE IV 500mg inj IV ONE (15:11)
--- NOTE | 2024-11-24 18:59 | HISTORY AND PHYSICAL-Residence ---
History & Physical Providers to Resident Creating Document: RITIKA CARBAJAL, RES ~ History of Present Illness Primary Medical Doctor: Dr. wong Reason for Admit\Complaint: Respiratory failure History of Present Illness The patient is a 78-year-old female with past medical history of AFib, LESLIE, HLD, HTN, hypothyroid, HFpEF, COPD on 4 L baseline oxygen, who was recently discharged to [facility] on 11/22/2024, brought back with concerns of altered mental status and respiratory distress. Patient on BiPAP during evaluation and is unable to give history. On arrival, her pH was 7.2 and pCO2 120. Her last pCO2 before discharge was 90. She is placed on BiPAP. Allergies: Coded Allergies: morphine (Unverified Allergy, Severe, 11/19/24) codeine (Verified Allergy, Unknown, 11/19/24) cortisone (Unverified Allergy, Unknown, 11/19/24) PT HAS RECEIVED METHYLPREDNISOLONE IN PAST, 2023 Home Medications Home Medications Active Reported Liothyronine Sodium* (Liothyronine Sodium) 25 Mcg Tablet 1 Tab PO DAILY 30 Days Levothyroxine (Levothyroxine Sodium) 125 Mcg Capsule 1 Cap PO DAILY 30 Days Lasix (Furosemide) 40 Mg Tablet 1 Tab PO BID 30 Days Coreg (Carvedilol) 6.25 Mg Tablet 1 Tab PO BID Zinc-220 (Zinc Sulfate) 50 Mg Zinc (220 Mg) Capsule 1 Cap PO DAILY Magnesium (Magnesium Oxide) 400 Mg Magnesium Capsule 400 Mg PO DAILY Calcium Carbonate 400 Mg Calcium (1000 Mg) Tab.chew 1 Tab PO Q4H PRN Fluoxetine HCl 10 Mg Capsule 1 Cap PO DAILY Elavil (Amitriptyline Hcl) 50 Mg Tablet 1 Tab PO HS Breo Ellipta 200-25 Mcg INH (Fluticasone/Vilanterol) 200 Mcg-25 Mcg/Dose Blst.w.dev 1 Puffs INH DAILY Co Q-10 (Ubidecarenone) 300 Mg Capsule 1 Cap PO DAILY 30 Days Vitamin D (Cholecalciferol) 2,000 Unit Tablet 1 Tab PO DAILY 30 Days Vitamin C* (Ascorbic Acid) 500 Mg Tablet 4 Tab PO DAILY B Complex (Vitamin B Complex) 1 Each Tablet 1 Tab PO DAILY Klor-Con (Potassium Chloride) 10 Meq Tab.prt.sr 20 Meq PO DAILY Eliquis (Apixaban) 5 Mg Tablet 1 Tab PO BID Atarax* (Hydroxyzine HCl) 25 Mg Tablet 1 Tab PO HS Glucophage* (Metformin HCl) 500 Mg Tablet 1 Tab PO BID Past Medical History Past Medical History AFib LESLIE morbid obesity hypertension hyperlipidemia hypothyroidism heart failure with preserved EF Past Surgical History Surgical History Comment Orthopedic surgeries Family History Family History: FH: heart disease FATHER FH: lupus Daughter Past Social History Smoking: Quit greater than 1 year Alcohol Use: None Drug Use: None Lives with: Spouse Lives In: Home Occupation: retired ROS ROS Unable to obtain because of patient's condition. Unable to obtain: altered mental status Exam Vitals: Vital Signs Date Time Temp Pulse Resp B/P (MAP) Pulse Ox O2 Delivery O2 Flow Rate FiO2 11/24/24 15:35 90 20 95 30 20 11/24/24 13:12 Bi-pap/CPAP 11/24/24 12:39 97.6 140/58 (85) 11/24/24 09:42 2.0 General: Elderly female, alert and confused, on BiPAP Head: Normocephalic with an atraumatic Eyes: Pupils- 3mm, reacting to light, conjunctiva- anicteric Nose and throat: No polyps, septum- normal, no mucosal ulcers Neck: Supple, no lymphadenopathy, no carotid bruit Respiratory: Bilateral coarse breath sounds, on BiPAP Cardiac: S1-S2 heard, rhythm irregular, no gallop/murmur Abdomen: non distended, no tenderness, no organomegaly, bowel sounds - heard Extremities: no clubbing, no pedal edema, no deformities, peripheral pulses - 2+ Skin: warm and dry, no rash, no purpura Neuro: No focal deficit, gross cranial nerve exam - normal Diagnostic Data Last Recorded Lab Results: 11/24/24 0754 11/24/24 0754 Diagnostic Data: Laboratory Tests Test 11/24/24 13:24 D-Dimer 1.78 MG/L FEU (0-0.50) H D-Dimer Comment Advance Care Planning Advanced Care plannin - 30 Minutes Additional Plan A 78-year-old female with past medical history of LESLIE, COPD, CHF, hypertension, hyperlipidemia, was brought to the ED from [facility] for concerning altered mental status and respiratory distress. She is being admitted into the hospital for further evaluation and management. Plan: Acute metabolic encephalopathy Acute on chronic respiratory failure COPD Obesity hypoventilation syndrome/obstructive sleep apnea Respiratory acidosis with metabolic compensation Possible CHF exacerbation with preserved ejection fraction PH on arrival 7.244, pCO2 120.7. Improved to 7.368/76.9 after 2 hours of BiPAP. Bicarb 48.9. Patient desaturating immediately after removing BiPAP. Continuous BiPAP. RT evaluate and treat. Acetazolamide 500 mg IV once and 250 mg twice daily. ProBNP 7572. IV Lasix 40 mg b.i.d. IV Solu-Medrol 125 mg once and 40 mg b.i.d. AFib with RVR Patient in AFib with RVR. Continue her home diltiazem 60 mg twice daily and carvedilol 6.25 mg b.i.d. Continue Eliquis 5 mg b.i.d. Hypothyroidism Continue home liothyronine 25 mcg and levothyroxine 125 mcg. Anxiety/depression Ativan 0.5 mg IV q.4h PRN. Continue fluoxetine 10 mg daily, hydroxyzine 25 mg HS, amitriptyline 50 mg HS. Code Status: Full code DVT Prophylaxis: Eliquis Analgesia/Sedation: Ativan Lines/Tubes: PIV Nutrition: NPO till ST evaluation PT: Ordered Prognosis: Guarded Disposition: We will admit the patient to medical [facility]. Continue BiPAP, RT eval and treat. Ritika Carbajal MD Internal Medicine Resident PGY-1 Date of Service: Nov 24, 2024 Billing Provider: ISSAC WESLEY MD,RITIKA DAILY, RES Nov 24, 2024 18:59
[2024-11-24] MEDS: azithromycin 250mg tablet PO ONE (19:05)
[2024-11-24] MEDS: LORazepam 2 mg/ml vial IV PRN (19:44)
[2024-11-24] MEDS: acetaZOLAMIDE IV 500mg inj IV SCH (19:44)
[2024-11-24] MEDS ORDERED: heparin, porcine 5000 units/ml vial SQ SCH (20:00)
[2024-11-24] MEDS: K and/or MAG REPLACEMENT MC SCH (20:00)
[2024-11-24] MEDS: carvedilol 6.25mg tablet PO SCH (20:00)
[2024-11-24] MEDS: lactobacillus rhamnosus 10,000 MMU CELLS/CAPSULE PO SCH (20:00)
[2024-11-24] MEDS: diltiazem 30mg tablet PO SCH (20:00)
[2024-11-24] MEDS ORDERED: apixaban 5mg tablet PO SCH (20:00)
[2024-11-24] MEDS: apixaban 5mg tablet PO SCH (20:00)
[2024-11-24] MEDS: docusate sod 100mg capsule PO SCH (20:00)
[2024-11-24] MEDS: budesonide 0.5mg/2ml UD nebule IH SCH (20:12)
[2024-11-24] MEDS: albuterol 2.5 MG/3 ML nebule NEB SCH (20:13)
[2024-11-24] MEDS: amitriptyline 50mg tablet PO SCH (21:00)
[2024-11-24] MEDS: hydrOXYzine 25 MG tablet PO SCH (21:00)
[2024-11-24] MEDS ORDERED: iohexol 350MG/ML 100ml bottle IV ONE (21:34)
[2024-11-24] MEDS: CefTRIAXone/D5W-Rocephin 1gm 50 ML IV ONE (22:57)
[2024-11-24] MEDS: methylPREDNISolone sod succ 125mg/2ml vial IV ONE (22:57)
[2024-11-24] MEDS: vancomycin/NS 1 GM ADD-VANTAGE 250 ML IV SCH (23:08)
[2024-11-24] MEDS: furosemide 40mg/4ml inj IV SCH (23:10)
[2024-11-25] VITALS (20 sets, daily range): BP systolic 93–107; BP diastolic 41–61; PULSE 87–108; RESP 17–30; TEMP 97–98.2; O2SAT 62–100
--- NOTE | 2024-11-25 02:50 | RADIOLOGY REPORT ---
INDICATION: Shortness of breaths TECHNIQUE: Multidetector CTA of the chest was performed of the chest with 100 cc of intravenous contr ast. PULMONARY ANGIOGRAPHY PROTOCOL was utilized using a bolus-tracking technique centered on the shaylee n pulmonary artery. Axial, coronal and sagittal multiplanar and MIP reformats were performed. Radiation Dose Information: CT Dose: CTDI volume is 25 mGy. Dose-length product is 250 mGy*cm The dose indicators for CT are the volume Computed Tomography (CT) Dose Index (CTDIvol) and the Dose Length Product (DLP), and are measured in units of mGy and mGy-cm, respectively. These indicators are not patient dose, but values generated from the CT scanner acquisition factors. The report includes radiation exposure data for exposures received during this examination. Findings: Pulmonary artery: Normal caliber of the pulmonary artery. No large central or large segmental pulmo nary embolism. Lower neck: Normal thyroid. Lungs: Bibasilar airspace opacites Heart/Vascular Structures: Normal heart size. Normal caliber and enhancement of the aorta. Lymph Nodes: No adenopathy Pleura: No pleural effusion or significant pneumothorax. Musculoskeletal: No acute osseous abnormality. Upper abdomen: Limited portions of the upper abdomen are unremarkable. IMPRESSION: 1. No pulmonary embolism. 2.Bibasilar airspace opacites
[2024-11-25] MEDS: nystatin 15 GM powder TP SCH (04:26)
[2024-11-25 06:02] LABS: BASOPHILS % (AUTO) 0.1 % (0-1); EOSINOPHILS % (AUTO) 0 % (0-6); HEMATOCRIT 33.7 % (35.0-45.0); HEMOGLOBIN 11.2 g/dl (12.0-16.0); LYMPHOCYTES % (AUTO) 8.5 % (21-51); MEAN CORPUSCULAR HEMOGLOBIN 30.3 PG (27.0-31.0); MEAN CORPUSCULAR HGB CONC 33.1 g/dL (33.0-36.5); MEAN CORPUSCULAR VOLUME 91.5 FL (78-98); MEAN PLATELET VOLUME 8.8 FL (7.4-10.4); MONOCYTES # (AUTO) 0.1 X10'3 (0-0.9); NEUTROPHILS # (AUTO) 11.1 X10'3 (1.8-7.7); NEUTROPHILS % (AUTO) 90.4 % (42-75); PLATELET COUNT 231 X10'3 (140-440); RED BLOOD COUNT 3.69 X10'6 (4.20-5.60); RED CELL DISTRIBUTION WIDTH 14.2 % (11.5-14.5); WHITE BLOOD COUNT 12.3 X10'3 (4.5-11.0)
[2024-11-25 06:12] LABS: ALANINE AMINOTRANSFERASE 9 U/L (12-78); ALBUMIN 2.2 G/DL (3.4-5.0); ALBUMIN/GLOBULIN RATIO 0.5 (1.1-1.5); ALKALINE PHOSPHATASE 69 IU/L (46-116); ANION GAP 6 (8-16); ASPARTATE AMINO TRANSFERASE 15 U/L (10-37); BILIRUBIN,TOTAL 1.1 MG/DL (0.1-1.0); BLOOD UREA NITROGEN 18 MG/DL (7-18); BUN/CREATININE RATIO 18.8 (10.0-20.0); CALCIUM 9.6 MG/DL (8.5-10.1); CHLORIDE 98 MMOL/L (99-107); CREATININE 0.96 MG/DL (0.40-0.90); GLUCOSE 131 MG/DL (70-104); MAGNESIUM 1.7 MG/DL (1.5-2.4); SODIUM 145 MMOL/L (135-145); TOTAL PROTEIN 6.6 G/DL (6.4-8.2); eCRCL 48 ML/MIN; eGFR 56 ML/MIN
[2024-11-25 06:27] LABS: TOTAL CARBON DIOXIDE 41.5 MMOL/L (24-32)
[2024-11-25] MEDS ORDERED: levoTHYROXINE 125mcg tablet PO SCH (07:00)
[2024-11-25] MEDS ORDERED: ipratropium/albuterol 3ml nebule NEB PRN (08:25)
[2024-11-25] MEDS ORDERED: DILT60CA2 PO (08:26)
[2024-11-25] MEDS ORDERED: ATOR20TA66 PO (08:34)
[2024-11-25] MEDS: CefTRIAXone/D5W-Rocephin 1gm 50 ML IV SCH (08:36)
[2024-11-25] MEDS: FLUoxetine 10mg capsule PO SCH (08:36)
[2024-11-25] MEDS: methylPREDNISolone sod succ/PF 40mg inj. IV SCH (08:37)
[2024-11-25] MEDS: azithromycin 250mg tablet PO SCH (08:37)
[2024-11-25] MEDS: LIOthyronine 25mcg tablet PO SCH (08:38)
[2024-11-25] MEDS: levoTHYROXINE 75mcg tablet PO SCH (10:01)
[2024-11-25] MEDS: pantoprazole 40 MG vial IV ONE (10:01)
[2024-11-25] MEDS: atorvastatin 20mg tablet PO ONE (10:02)
[2024-11-25] MEDS: diltiazem SR 60mg capsule (twice daily) PO SCH (10:02)
[2024-11-25] MEDS: ipratropium/albuterol 3ml nebule NEB SCH (11:53)
[2024-11-25 12:08] LABS: ABG BASE EXCESS 17.9 mmol/L (-2.0-3.0); ABG HCO3 46.9 mmol/L (21.0-28.0); ABG OXYGEN SATURATION 99.4 % (94.0-98.0); ABG PCO2 (T) 84.8 mmHg (32.0-45.0); ABG PH (T) 7.361 (7.350-7.450); ALLEN'S TEST POSITIVE; FCOHb 0.4 % (0.5-1.5); FHHb 0.6 % (0.0-5.0); FLOW 6 L/min; FMetHb 0.1 % (0.0-1.5); FO2Hb 98.9 % (94.0-98.0); MODE NASAL CANNULA; TOTAL HEMOGLOBIN 11.1 G/dl (12.0-16.0)
[2024-11-25] MEDS: potassium Cl 40MEQ/1/2NS 520ml 520 ML IV PRN (12:21)
[2024-11-25] MEDS: vancomycin/NS 1 GM ADD-VANTAGE 250 ML X 1 DOSE IV SCH (12:21)
--- NOTE | 2024-11-25 14:06 | VASCULAR REPORT ---
CLINICAL HISTORY: Bilateral leg swelling TECHNIQUE: Color and duplex doppler imaging of the bilateral lower extremity veins was performed. Ves norma compression if possible was also performed. WID: COMPARISON: VASC VL VENOUS on DOS: 07/03/24, VASC VL VENOUS on DOS: 07/19/23 FINDINGS: Right Lower Extremity: Right common femoral vein: Normal compressibility and flow. Right femoral vein: Normal compressibility and flow. Right popliteal vein: Normal compressibility and flow. Proximal calf veins are normally compressible. Left Lower Extremity: Left common femoral vein: Normal compressibility and flow. Left femoral vein: Normal compressibility and flow. Left popliteal vein: Normal compressibility and flow. Proximal calf veins are normally compressible. IMPRESSION: NO SONOGRAPHIC EVIDENCE FOR DEEP VENOUS THROMBOSIS IN THE BILATERAL LOWER EXTREMITY VEINS.
[2024-11-25] MEDS: magnesium sulf-water 2g/50mL 50 ML IV ONE (14:30)
--- NOTE | 2024-11-25 18:02 | PROGRESS NOTE- Residence ---
Progress Note - Resident Providers to CC Resident Creating Document: RITIKA CARBAJAL, RES ~ Antibiotic Timeout Antibiotic Ordered?: Yes Subjective The patient was seen and examined at bedside today. She is not on BiPAP anymore. She is sleeping comfortably. Objective Vital Signs Date Time Temp Pulse Resp B/P (MAP) Pulse Ox O2 Delivery O2 Flow Rate FiO2 11/25/24 16:12 99 20 Nasal Cannula 1.0 11/25/24 16:06 91 24 11/25/24 02:00 97.6 93/57 (69) Result Diagram: 11/25/24 0520 11/25/24 0520 Elderly female, alert and confused Head: Normocephalic with an atraumatic Eyes: Pupils- 3mm, reacting to light, conjunctiva- anicteric Nose and throat: No polyps, septum- normal, no mucosal ulcers Neck: Supple, no lymphadenopathy, no carotid bruit Respiratory: Bilateral diffuse wheezing and coarse breath sounds Cardiac: S1-S2 heard, rhythm irregular, no gallop/murmur Abdomen: non distended, no tenderness, no organomegaly, bowel sounds - heard Extremities: no clubbing, no pedal edema, no deformities, chronic venous congestion Skin: warm and dry, no rash, no purpura Neuro: No focal deficit, gross cranial nerve exam - normal Coagulation Studies Laboratory Tests Test 11/24/24 13:24 D-Dimer 1.78 MG/L FEU (0-0.50) H D-Dimer Comment Assessment Assessment A 78-year-old female with past medical history of LESLIE, COPD, CHF, hypertension, hyperlipidemia, was brought to the ED from [facility] for concerning altered mental status and respiratory distress. She is being admitted into the hospital for further evaluation and management. Plan Plan Acute metabolic encephalopathy Acute on chronic respiratory failure COPD Obesity hypoventilation syndrome/obstructive sleep apnea Respiratory acidosis with metabolic compensation Possible CHF exacerbation with preserved ejection fraction PH and pCO2 improving. Patient needs BiPAP during naps and bedtime. Bicarb improving 41.5. RT evaluate and treat. Continue acetazolamide 250 mg twice daily. ProBNP 7572. IV Lasix 40 mg b.i.d. IV Solu-Medrol 125 mg once and 40 mg b.i.d. DuoNebs q.4h scheduled and q.2h p.r.n. Possible health-care associated pneumonia Continue IV vancomycin, ceftriaxone and azithromycin. Incentive spirometry and flutter valve. AFib with RVR Patient in AFib, rate controlled. Continue her home diltiazem 60 mg twice daily and carvedilol 6.25 mg b.i.d. Continue Eliquis 5 mg b.i.d. Hypothyroidism Continue home liothyronine 25 mcg and levothyroxine 125 mcg. Anxiety/depression Ativan 0.5 mg IV q.4h PRN. Continue fluoxetine 10 mg daily, hydroxyzine 25 mg HS, amitriptyline 50 mg HS. History of MDRO and MRSA urine Continue contact isolation precautions. Awaiting urinalysis and culture. Code Status: Full code DVT Prophylaxis: Eliquis Analgesia/Sedation: Ativan Lines/Tubes: PIV Nutrition: Pureed diet PT: Ordered Prognosis: Guarded Disposition: Continue BiPAP during nap times and bedtime. Ritika Carbajal MD Internal Medicine Resident PGY-1 Date of Service: Nov 25, 2024 Billing Provider: ERASMO GUSTAFSON MD Common Visit Codes: [id number] INP/OBS CARE(HIGH) RITIKA CARBAJAL, RES Nov 25, 2024 18:02 ERASMO GUSTAFSON MD Nov 30, 2024 15:48
[2024-11-25] MEDS ORDERED: diltiazem SR 60mg capsule (twice daily) PO SCH (20:00)
[2024-11-25] MEDS: lactose-reduced food (Ensure Enlive) - 237ml bottle PO SCH (20:00)
[2024-11-25] MEDS: furosemide 20 MG/2 ML vial IV SCH (21:07)
[2024-11-25] MEDS: acetaminophen 325mg tablet PO PRN (21:07)
[2024-11-26] VITALS (25 sets, daily range): BP systolic 81–103; BP diastolic 43–59; PULSE 75–90; RESP 12–30; TEMP 97–98.4; O2SAT 90–97
[2024-11-26] MEDS: Melatonin 3mg tablet PO SCH (00:23)
[2024-11-26 01:48] LABS: BILIRUBIN,URINE SMALL (Neg); CLARITY,URINE SLIGHTLY CLOUDY (Clear); COLOR,URINE YELLOW (Yellow); GLUCOSE, URINE NEGATIVE (Neg); KETONES,URINE NEGATIVE (Neg); LEUKOCYTE ESTERASE ,URINE TRACE (Neg); NITRITES, URINE NEGATIVE (Neg); OCCULT BLOOD,URINE MODERATE (Neg); PH,URINE 6.5 (4.8-8.0); PROTEIN,URINE NEGATIVE (Neg); UA COLLECTION TYPE FOLEY CATH
[2024-11-26 01:50] LABS: BACTERIA,URINE 1+ /HPF (Neg); MUCUS STRANDS FEW /LPF (Neg); RBC,URINE 20-50 /HPF (0-2); SQUAMOUS EPITHELIAL CELL,UR FEW /LPF (FEW)
[2024-11-26] MEDS ORDERED: levoTHYROXINE 75mcg tablet PO SCH (07:00)
[2024-11-26 07:05] LABS: BASOPHILS % (AUTO) 0.1 % (0-1); EOSINOPHILS % (AUTO) 0 % (0-6); HEMATOCRIT 31.3 % (35.0-45.0); HEMOGLOBIN 10.4 g/dl (12.0-16.0); LYMPHOCYTES # (AUTO) 0.9 X10'3 (1.1-4.8); LYMPHOCYTES % (AUTO) 7.2 % (21-51); MEAN CORPUSCULAR HEMOGLOBIN 30.8 PG (27.0-31.0); MEAN CORPUSCULAR HGB CONC 33.2 g/dL (33.0-36.5); MEAN CORPUSCULAR VOLUME 92.7 FL (78-98); MEAN PLATELET VOLUME 8.4 FL (7.4-10.4); MONOCYTES # (AUTO) 0.3 X10'3 (0-0.9); MONOCYTES % (AUTO) 2.5 % (2-12); NEUTROPHILS # (AUTO) 11.8 X10'3 (1.8-7.7); NEUTROPHILS % (AUTO) 90.2 % (42-75); PLATELET COUNT 216 X10'3 (140-440); RED BLOOD COUNT 3.38 X10'6 (4.20-5.60); RED CELL DISTRIBUTION WIDTH 14.4 % (11.5-14.5); WHITE BLOOD COUNT 13.1 X10'3 (4.5-11.0)
[2024-11-26 07:18] LABS: ALANINE AMINOTRANSFERASE 9 U/L (12-78); ALBUMIN/GLOBULIN RATIO 0.5 (1.1-1.5); ALKALINE PHOSPHATASE 62 IU/L (46-116); ANION GAP 0 (8-16); ASPARTATE AMINO TRANSFERASE 13 U/L (10-37); BILIRUBIN,TOTAL 0.6 MG/DL (0.1-1.0); BLOOD UREA NITROGEN 27 MG/DL (7-18); BUN/CREATININE RATIO 22.7 (10.0-20.0); CALCIUM 8.9 MG/DL (8.5-10.1); CHLORIDE 100 MMOL/L (99-107); CHOLESTEROL 112 MG/DL (0-200); CREATININE 1.19 MG/DL (0.40-0.90); GLUCOSE 144 MG/DL (70-104); HDL CHOLESTEROL 37 MG/DL (35-60); LDL CHOLESTEROL 57 MG/DL (50-100); MAGNESIUM 2.3 MG/DL (1.5-2.4); SODIUM 141 MMOL/L (135-145); TOTAL PROTEIN 6.2 G/DL (6.4-8.2); TRIGLYCERIDES 107 MG/DL (20-135); eCRCL 39 ML/MIN; eGFR 44 ML/MIN
[2024-11-26 07:20] LABS: TOTAL CARBON DIOXIDE 40.6 MMOL/L (24-32)
[2024-11-26] MEDS: pantoprazole 40 MG vial IV SCH (09:16)
[2024-11-26] MEDS: atorvastatin 20mg tablet PO SCH (09:17)
[2024-11-26] MEDS: VANCOMYCIN LEVEL IV ONE (10:30)
--- NOTE | 2024-11-26 18:21 | PROGRESS NOTE- Residence ---
Progress Note - Resident Providers to CC Resident Creating Document: SUZY OJEDA RES ~ Antibiotic Timeout Antibiotic Ordered?: Yes Subjective Patient was drowsy this morning but on the 2nd round the patient is very fully awake and alert compared to yesterday. Carbon dioxide in serum level dropped down to 40.6 today. She is still using BiPAP during sleep. Objective Vital Signs Date Time Temp Pulse Resp B/P (MAP) Pulse Ox O2 Delivery O2 Flow Rate FiO2 11/26/24 16:35 80 20 Nasal Cannula 1.0 11/26/24 16:24 95 24 11/26/24 15:38 90/52 (65) 11/26/24 15:00 97.3 Result Diagram: 11/26/2462311/26/24623 Vitals were stable at the moment. On exam, Elderly female, alert and confused Head: Normocephalic with an atraumatic Eyes: Pupils- 3mm, reacting to light, conjunctiva- anicteric Nose and throat: No polyps, septum- normal, no mucosal ulcers Neck: Supple, no lymphadenopathy, no carotid bruit Respiratory: Bilateral diffuse wheezing and coarse breath sounds Cardiac: S1-S2 heard, rhythm irregular, no gallop/murmur Abdomen: non distended, no tenderness, no organomegaly, bowel sounds - heard Extremities: no clubbing, no pedal edema, no deformities, chronic venous congestion Skin: warm and dry, no rash, no purpura Neuro: No focal deficit, gross cranial nerve exam - normal Coagulation Studies Laboratory Tests Test 11/24/24 13:24 D-Dimer 1.78 MG/L FEU (0-0.50) H D-Dimer Comment Assessment Assessment A 78-year-old female with past medical history of LESLIE, COPD, CHF, hypertension, hyperlipidemia, was brought to the ED from [facility] for concerning altered mental status and respiratory distress. She is being admitted to the hospital for further evaluation and management. Plan Plan Acute metabolic encephalopathy Acute on chronic respiratory failure COPD Obesity hypoventilation syndrome/obstructive sleep apnea with carbon dioxide narcosis Respiratory acidosis with metabolic alkalotic compensation Possible CHF exacerbation with preserved ejection fraction 11/2024: Continue BiPAP during sleep -need to repeat ABG as needed for the confusion and severe co2 retention -Her BP is on soft side and half the dosage of PO Carvedilol 3.25 mg BID, and PO Diltizaem 30 mg BID 11/25/2024: PH and pCO2 improving. Patient needs BiPAP during naps and bedtime. Bicarb improving 41.5. RT evaluate and treat. Continue acetazolamide 250 mg twice daily. ProBNP 7572. IV Lasix 40 mg b.i.d. IV Solu-Medrol 125 mg once and 40 mg b.i.d. DuoNebs q.4h scheduled and q.2h p.r.n. Possible health-care associated pneumonia, treating with Broad spectrum ABx 11/26/24: Continue IV vancomycin, ceftriaxone- day 3, and azithromycin- stopped after 3 days completed Incentive spirometry and flutter valve. AFib with RVR 11/26/24: Patient in AFib, rate controlled. Her BP is on soft side and half the dosage of PO Carvedilol 3.25 mg BID, and PO Diltizaem 30 mg BID Continue Eliquis 5 mg b.i.d. Hypothyroidism Continue home liothyronine 25 mcg and levothyroxine 125 mcg. Anxiety/depression Ativan 0.5 mg IV q.4h PRN. Continue fluoxetine 10 mg daily, hydroxyzine 25 mg HS, amitriptyline 50 mg HS. History of MDRO and MRSA urine 11/26/24: Continue contact isolation precautions. Awaiting urinalysis and culture-no growth after two days. Code Status: Full code DVT Prophylaxis: Eliquis Analgesia/Sedation: Ativan Lines/Tubes: PIV Nutrition: Pureed diet--> Heart healthy diet as per pt's requested PT: Ordered Prognosis: Guarded Disposition: Continue BiPAP during nap times and bedtime, continue medical therapy including IV antibiotics, DuoNeb, PT eval and DC plan for rehab possibly on Friday Resident attestation: Patient was seen, examined and discussed with attending MD, Dr. Zechariah OJEDA MD Internal Medicine Resident, PGY2 [facility] Date of Service: Nov 26, 2024 Billing Provider: ERASMO GUSTAFSON MD Common Visit Codes: [id number] INP/OBS CARE(HIGH) SUZY OJEDA, RES Nov 26, 2024 18:21 ERASMO GUSTAFSON MD Nov 30, 2024 15:48
[2024-11-26] MEDS: carVEDilol 3.125mg tablet PO SCH (21:24)
[2024-11-26] MEDS: diltiazem 30mg tablet PO SCH (21:25)
[2024-11-27] VITALS (29 sets, daily range): BP systolic 81–118; BP diastolic 42–67; PULSE 77–96; RESP 12–29; TEMP 97–97.5; O2SAT 88–97
[2024-11-27 06:27] LABS: BASOPHILS % (AUTO) 0.1 % (0-1); EOSINOPHILS % (AUTO) 0 % (0-6); HEMATOCRIT 30.2 % (35.0-45.0); HEMOGLOBIN 10.1 g/dl (12.0-16.0); LYMPHOCYTES # (AUTO) 0.7 X10'3 (1.1-4.8); LYMPHOCYTES % (AUTO) 6.5 % (21-51); MEAN CORPUSCULAR HEMOGLOBIN 30.8 PG (27.0-31.0); MEAN CORPUSCULAR HGB CONC 33.6 g/dL (33.0-36.5); MEAN CORPUSCULAR VOLUME 91.5 FL (78-98); MEAN PLATELET VOLUME 8.4 FL (7.4-10.4); MONOCYTES # (AUTO) 0.3 X10'3 (0-0.9); MONOCYTES % (AUTO) 2.6 % (2-12); NEUTROPHILS # (AUTO) 9.2 X10'3 (1.8-7.7); NEUTROPHILS % (AUTO) 90.8 % (42-75); PLATELET COUNT 223 X10'3 (140-440); RED CELL DISTRIBUTION WIDTH 13.8 % (11.5-14.5); WHITE BLOOD COUNT 10.1 X10'3 (4.5-11.0)
[2024-11-27 06:46] LABS: ALANINE AMINOTRANSFERASE 8 U/L (12-78); ALBUMIN/GLOBULIN RATIO 0.5 (1.1-1.5); ALKALINE PHOSPHATASE 58 IU/L (46-116); ANION GAP 3 (8-16); ASPARTATE AMINO TRANSFERASE 9 U/L (10-37); BILIRUBIN,TOTAL 0.4 MG/DL (0.1-1.0); BLOOD UREA NITROGEN 29 MG/DL (7-18); BUN/CREATININE RATIO 22.8 (10.0-20.0); CHLORIDE 102 MMOL/L (99-107); CREATININE 1.27 MG/DL (0.40-0.90); GLUCOSE 160 MG/DL (70-104); MAGNESIUM 2.3 MG/DL (1.5-2.4); POTASSIUM 3.5 MMOL/L (3.5-5.1); SODIUM 143 MMOL/L (135-145); TOTAL CARBON DIOXIDE 38.5 MMOL/L (24-32); TOTAL PROTEIN 5.9 G/DL (6.4-8.2); eCRCL 36 ML/MIN; eGFR 41 ML/MIN
--- NOTE | 2024-11-27 11:52 | RADIOLOGY REPORT ---
EXAM: XR Right Foot, 2 Views CLINICAL INDICATION: pain TECHNIQUE: Frontal and lateral views of the right foot. COMPARISON: None FINDINGS: BONES/JOINTS: See below. SOFT TISSUES: Soft tissue swelling without acute fracture. No radiopaque foreign body. OTHER FINDINGS: . IMPRESSION: 1. Soft tissue swelling without acute fracture. 2. If symptoms persist, further evaluation with CT is recommended.
[2024-11-27] MEDS: normal saline 500ml IV soln 500 ML IV ONE (14:08)
--- NOTE | 2024-11-27 17:56 | PROGRESS NOTE- Residence ---
Progress Note - Resident Providers to CC Resident Creating Document: RITIKA CARBAJAL, RES ~ Antibiotic Timeout Antibiotic Ordered?: Yes Subjective The patient was seen and examined at bedside today. She complained of pain on her right great toe, x-ray did not reveal any fracture. Her blood pressure was soft this afternoon and she received 500 mL bolus of normal saline. Decreased her acetazolamide and Lasix to once daily. Objective Vital Signs Date Time Temp Pulse Resp B/P (MAP) Pulse Ox O2 Delivery O2 Flow Rate FiO2 11/27/24 16:14 80 18 Nasal Cannula 1.0 11/27/24 16:04 94 24 11/27/24 15:00 97.2 95/57 (70) Result Diagram: 11/27/24 0612 11/27/24 0612 Elderly female, alert and oriented Head: Normocephalic with an atraumatic Eyes: Pupils- 3mm, reacting to light, conjunctiva- anicteric Nose and throat: No polyps, septum- normal, no mucosal ulcers Neck: Supple, no lymphadenopathy, no carotid bruit Respiratory: Bilaterally diminished breath sounds heard Cardiac: S1-S2 heard, rhythm irregular, pansystolic murmur in the aortic region Abdomen: non distended, no tenderness, no organomegaly, bowel sounds - heard Extremities: no clubbing, no pedal edema, no deformities, chronic venous congestion, right great toe tender Skin: warm and dry, no rash, no purpura Neuro: No focal deficit, gross cranial nerve exam - normal Coagulation Studies Laboratory Tests Test 11/24/24 13:24 D-Dimer 1.78 MG/L FEU (0-0.50) H D-Dimer Comment Assessment Assessment A 78-year-old female with past medical history of LESLIE, COPD, CHF, hypertension, hyperlipidemia, was brought to the ED from [facility] for concerning altered mental status and respiratory distress. She is being admitted to the hospital for further evaluation and management. Plan Plan Acute metabolic encephalopathy Acute on chronic respiratory failure COPD Obesity hypoventilation syndrome/obstructive sleep apnea Respiratory acidosis with metabolic compensation Possible CHF exacerbation with preserved ejection fraction PH and pCO2 improving. Patient needs BiPAP during naps and bedtime. Bicarb improving 38.5 Blood pressures soft. Decreased acetazolamide to 250 mg once daily. Also decreased Lasix to 20 mg once daily ProBNP 7572. IV Solu-Medrol 40 mg b.i.d. DuoNebs q.4h scheduled and q.2h p.r.n. Possible health-care associated pneumonia Continue IV vancomycin, ceftriaxone. Patient finished three days of IV azithromycin. Incentive spirometry and flutter valve. AFib with RVR Patient in AFib, rate controlled. Continue diltiazem 30 mg twice daily and carvedilol 3.125 mg b.i.d. Continue Eliquis 5 mg b.i.d. Hypothyroidism Continue home liothyronine 25 mcg and levothyroxine 125 mcg. Anxiety/depression Ativan 0.5 mg IV q.4h PRN. Continue fluoxetine 10 mg daily, hydroxyzine 25 mg HS, amitriptyline 50 mg HS. Recurrent urinary tract infection History of MDRO and MRSA urine Continue contact isolation precautions. Urinalysis positive for leukocyte esterase, 5-10 WBC and 1+ bacteria. Continue IV ceftriaxone for now. Follow up with urine cultures. Code Status: Full code DVT Prophylaxis: Eliquis Analgesia/Sedation: Ativan Lines/Tubes: PIV Nutrition: Pureed diet PT: Previous living environment ([facility]) Prognosis: Guarded Disposition: Continue BiPAP during nap times and bedtime. Monitor blood pressures. Ritika Carbajal MD Internal Medicine Resident PGY-1 Date of Service: Nov 27, 2024 Billing Provider: ERASMO GUSTAFSON MD Common Visit Codes: [id number] INP/OBS CARE(HIGH) RITIKA CARBAJAL, RES Nov 27, 2024 17:56 ERASMO GUSTAFSON MD Nov 30, 2024 15:48
[2024-11-27] MEDS: vancomycin inj. 750 MG in normal saline 250ml IV soln 250 ML IV SCH (23:37)
[2024-11-27] MEDS: vancomycin 750mg inj ONE (23:38)
[2024-11-28] VITALS (21 sets, daily range): BP systolic 106–117; BP diastolic 58–72; PULSE 82–94; RESP 18–28; TEMP 96.4–98.3; O2SAT 92–97
[2024-11-28 03:56] LABS: ABG BASE EXCESS 12.2 mmol/L (-2.0-3.0); ABG HCO3 37.9 mmol/L (21.0-28.0); ABG OXYGEN SATURATION 96.6 % (94.0-98.0); ABG PCO2 (T) 55.5 mmHg (32.0-45.0); ABG PH (T) 7.452 (7.350-7.450); ABG PO2 (T) 86.4 mmHg (83.0-108.0); ALLEN'S TEST POSITIVE; FCOHb 0.4 % (0.5-1.5); FHHb 3.4 % (0.0-5.0); FO2Hb 96.2 % (94.0-98.0); MODE MASK - BIPAP; RESPIRATORY RATE 12 b/min; TOTAL HEMOGLOBIN 10.6 G/dl (12.0-16.0)
[2024-11-28 06:28] LABS: BASOPHILS % (AUTO) 0.1 % (0-1); EOSINOPHILS % (AUTO) 0 % (0-6); HEMATOCRIT 30.5 % (35.0-45.0); HEMOGLOBIN 10.3 g/dl (12.0-16.0); LYMPHOCYTES # (AUTO) 0.6 X10'3 (1.1-4.8); LYMPHOCYTES % (AUTO) 5.7 % (21-51); MEAN CORPUSCULAR HEMOGLOBIN 30.9 PG (27.0-31.0); MEAN CORPUSCULAR HGB CONC 33.8 g/dL (33.0-36.5); MEAN CORPUSCULAR VOLUME 91.4 FL (78-98); MEAN PLATELET VOLUME 8.2 FL (7.4-10.4); MONOCYTES # (AUTO) 0.4 X10'3 (0-0.9); MONOCYTES % (AUTO) 3.8 % (2-12); NEUTROPHILS # (AUTO) 8.8 X10'3 (1.8-7.7); NEUTROPHILS % (AUTO) 90.4 % (42-75); PLATELET COUNT 228 X10'3 (140-440); RED BLOOD COUNT 3.33 X10'6 (4.20-5.60); WHITE BLOOD COUNT 9.7 X10'3 (4.5-11.0)
[2024-11-28 06:58] LABS: ALANINE AMINOTRANSFERASE 11 U/L (12-78); ALBUMIN 2.2 G/DL (3.4-5.0); ALBUMIN/GLOBULIN RATIO 0.6 (1.1-1.5); ALKALINE PHOSPHATASE 57 IU/L (46-116); ANION GAP 2 (8-16); ASPARTATE AMINO TRANSFERASE 15 U/L (10-37); BILIRUBIN,TOTAL 0.4 MG/DL (0.1-1.0); BLOOD UREA NITROGEN 27 MG/DL (7-18); BUN/CREATININE RATIO 27.6 (10.0-20.0); CALCIUM 9.1 MG/DL (8.5-10.1); CHLORIDE 100 MMOL/L (99-107); CREATININE 0.98 MG/DL (0.40-0.90); GLUCOSE 176 MG/DL (70-104); MAGNESIUM 2.2 MG/DL (1.5-2.4); POTASSIUM 3.3 MMOL/L (3.5-5.1); SODIUM 139 MMOL/L (135-145); TOTAL CARBON DIOXIDE 36.6 MMOL/L (24-32); eCRCL 47 ML/MIN; eGFR 55 ML/MIN
[2024-11-28] MEDS: furosemide 20 MG/2 ML vial IV SCH (10:06)
[2024-11-28] MEDS: acetaZOLAMIDE IV 500mg inj IV SCH ×2 (10:14→21:22)
[2024-11-28] MEDS: magnesium hydroxide 30ml (MOM) UD suspension PO ONE (13:42)
[2024-11-28] MEDS ORDERED: magnesium Cl slow-release 64mg tablet PO PRN (17:40)
[2024-11-28] MEDS ORDERED: magnesium sulf-water 4G/100mL 100 ML IV PRN (17:40)
[2024-11-28] MEDS ORDERED: magnesium sulf-water 2g/50mL 50 ML IV PRN (17:40)
[2024-11-28] MEDS ORDERED: potassium Cl 40MEQ/1/2NS 520ml 520 ML IV PRN (17:40)
[2024-11-28] MEDS: potassium Cl 20 mEq SR tablet PO PRN (18:56)
--- NOTE | 2024-11-28 19:12 | PROGRESS NOTE- Residence ---
Progress Note - Resident Providers to CC Resident Creating Document: RITIKA CARBAJAL, RES ~ Antibiotic Timeout Antibiotic Ordered?: Yes Subjective The patient was seen and examined at bedside today. She is clinically doing better. Her blood pressures are stable and she is using BiPAP at bedtime and during nebs. Anticipate discharge tomorrow to [facility]. Objective Vital Signs Date Time Temp Pulse Resp B/P (MAP) Pulse Ox O2 Delivery O2 Flow Rate FiO2 11/28/24 15:19 88 28 Nasal Cannula 1.0 11/28/24 15:11 93 24 11/28/24 02:00 97.8 106/58 (74) Result Diagram: 11/28/24 0613 11/28/24 0613 Elderly female, alert and oriented Head: Normocephalic with an atraumatic Eyes: Pupils- 3mm, reacting to light, conjunctiva- anicteric Nose and throat: No polyps, septum- normal, no mucosal ulcers Neck: Supple, no lymphadenopathy, no carotid bruit Respiratory: Bilaterally diminished breath sounds heard Cardiac: S1-S2 heard, rhythm irregular, pansystolic murmur in the aortic region Abdomen: non distended, no tenderness, no organomegaly, bowel sounds - heard Extremities: no clubbing, no pedal edema, no deformities, chronic venous congestion, right great toe tender Skin: warm and dry, no rash, no purpura Neuro: No focal deficit, gross cranial nerve exam - normal Coagulation Studies Laboratory Tests Test 11/24/24 13:24 D-Dimer 1.78 MG/L FEU (0-0.50) H D-Dimer Comment Assessment Assessment A 78-year-old female with past medical history of LESLIE, COPD, CHF, hypertension, hyperlipidemia, was brought to the ED from [facility] for concerning altered mental status and respiratory distress. She is being admitted to the hospital for further evaluation and management. Plan Plan Acute metabolic encephalopathy Acute on chronic respiratory failure COPD Obesity hypoventilation syndrome/obstructive sleep apnea Respiratory acidosis with metabolic compensation Possible CHF exacerbation with preserved ejection fraction PH and pCO2 improving. Bicarb improving 36.6. Increased acetazolamide to 250 mg twice daily. Blood pressures stable. Patient needs BiPAP during naps and bedtime. Continue IV Lasix 20 mg once daily. ProBNP 7572. IV Solu-Medrol 40 mg b.i.d. DuoNebs q.4h scheduled and q.2h p.r.n. Possible health-care associated pneumonia Continue IV vancomycin, ceftriaxone. Patient finished three days of IV azithromycin. Incentive spirometry and flutter valve. AFib with RVR Patient in AFib, rate controlled. Continue diltiazem 30 mg twice daily and carvedilol 3.125 mg b.i.d. Continue Eliquis 5 mg b.i.d. Hypothyroidism Continue home liothyronine 25 mcg and levothyroxine 125 mcg. Anxiety/depression Ativan 0.5 mg IV q.4h PRN. Continue fluoxetine 10 mg daily, hydroxyzine 25 mg HS, amitriptyline 50 mg HS. Recurrent urinary tract infection History of MDRO and MRSA urine Continue contact isolation precautions. Urinalysis positive for leukocyte esterase, 5-10 WBC and 1+ bacteria. Urine cultures negative. Code Status: Full code DVT Prophylaxis: Eliquis Analgesia/Sedation: Ativan Lines/Tubes: PIV Nutrition: Pureed diet PT: Previous living environment ([facility]) Prognosis: Guarded Disposition: Continue BiPAP during nap times and bedtime. Anticipate discharge in the next 24 hours to [facility]. Ritika Carbajal MD Internal Medicine Resident PGY-1 Date of Service: Nov 28, 2024 Billing Provider: ERASMO GUSTAFSON MD Common Visit Codes: [id number] INP/OBS CARE(HIGH) RITIKA CARBAJAL, RES Nov 28, 2024 19:12 ERASMO GUSTAFSON MD Nov 30, 2024 15:48
[2024-11-28] MEDS: K and/or MAG REPLACEMENT MC SCH (20:00)
[2024-11-29] VITALS (8 sets, daily range): BP systolic 129; BP diastolic 69; PULSE 80–89; RESP 16–25; TEMP 96.1–96.7; O2SAT 92–99
[2024-11-29 06:39] LABS: BASOPHILS % (AUTO) 0.1 % (0-1); EOSINOPHILS % (AUTO) 0 % (0-6); HEMATOCRIT 32.4 % (35.0-45.0); HEMOGLOBIN 10.7 g/dl (12.0-16.0); LYMPHOCYTES # (AUTO) 0.6 X10'3 (1.1-4.8); MEAN CORPUSCULAR HEMOGLOBIN 30.8 PG (27.0-31.0); MEAN CORPUSCULAR HGB CONC 33.1 g/dL (33.0-36.5); MEAN PLATELET VOLUME 8.6 FL (7.4-10.4); MONOCYTES # (AUTO) 0.4 X10'3 (0-0.9); MONOCYTES % (AUTO) 4.3 % (2-12); NEUTROPHILS # (AUTO) 9.1 X10'3 (1.8-7.7); NEUTROPHILS % (AUTO) 89.6 % (42-75); PLATELET COUNT 204 X10'3 (140-440); RED BLOOD COUNT 3.49 X10'6 (4.20-5.60); RED CELL DISTRIBUTION WIDTH 14.3 % (11.5-14.5); WHITE BLOOD COUNT 10.2 X10'3 (4.5-11.0)
[2024-11-29 06:46] LABS: ALANINE AMINOTRANSFERASE 11 U/L (12-78); ALBUMIN 2.2 G/DL (3.4-5.0); ALBUMIN/GLOBULIN RATIO 0.6 (1.1-1.5); ALKALINE PHOSPHATASE 58 IU/L (46-116); ANION GAP -4 (8-16); ASPARTATE AMINO TRANSFERASE 15 U/L (10-37); BILIRUBIN,TOTAL 0.4 MG/DL (0.1-1.0); BLOOD UREA NITROGEN 27 MG/DL (7-18); BUN/CREATININE RATIO 30.3 (10.0-20.0); CHLORIDE 104 MMOL/L (99-107); CREATININE 0.89 MG/DL (0.40-0.90); GLUCOSE 232 MG/DL (70-104); MAGNESIUM 2.3 MG/DL (1.5-2.4); SODIUM 140 MMOL/L (135-145); TOTAL CARBON DIOXIDE 39.8 MMOL/L (24-32); eCRCL 51 ML/MIN; eGFR 62 ML/MIN
[2024-11-29] MEDS: pantoprazole 40mg Tablet.DR PO SCH (08:20)
[2024-11-29] MEDS: ondansetron/PF 4mg/2ml inj IV PRN (09:47)
[2024-11-29] MEDS: VANCOMYCIN LEVEL IV ONE (10:30)
[2024-11-29] MEDS: mag hydrox/Alum hydrox/simeth 30ml oral suspension PO PRN (11:44)
--- NOTE | 2024-11-29 17:01 | DISCHARGE SUMMARY-Residence ---
Discharge Summary Providers to Resident Creating Document: ESTEFANIA CARBAJAL, RES ~ Discharge Summary Admission Diagnosis: Acute on chronic RF, Afib with RVR Hospital Course DATE OF ADMISSION: 11/24/2024 DATE OF DISCHARGE: 11/29/2024 Imaging: X-ray chest 11/24/2024: There is bibasilar airspace opacity which could be consolidation period small right pleural effusion. Cardiomegaly. CT head 11/24/2024: No acute intracranial process. CTA chest 11/24/2024: 1. No pulmonary embolism. 2. Bibasilar airspace opacites. Bilateral lower extremity venous ultrasound 11/25/2024: NO SONOGRAPHIC EVIDENCE FOR DEEP VENOUS THROMBOSIS IN THE BILATERAL LOWER EXTREMITY VEINS. Right foot x-ray 11/27/2024: Soft tissue swelling without acute fracture. Discharge Diagnosis\Comment: Acute metabolic encephalopathy, improved Acute on chronic respiratory failure COPD Obesity hypoventilation syndrome/obstructive sleep apnea Respiratory acidosis with metabolic compensation, improved Possible CHF exacerbation with preserved ejection fraction Possible health-care associated pneumonia AFib with RVR Hypothyroidism Anxiety/depression Recurrent urinary tract infection History of MDRO and MRSA urine Operations\Procedures: None Consultants: None Complications: None Condition on DC: Stable Discharge Summary: The patient is a 78-year-old female with past medical history of AFib, LESLIE, HLD, HTN, hypothyroid, HFpEF, COPD on 4 L baseline oxygen, who was recently discharged to [facility] on 11/22/2024, brought back with concerns of altered mental status and respiratory distress. On evaluation in the ED, the patient was in respiratory acidosis with a pH of 7.244, pCO2 120.7. She was immediately started on continuous BiPAP. She was in metabolic alkalotic compensation with bicarb of 48.9. She was given acetazolamide 500 mg IV and started her on 250 mg IV twice daily. She was treated with IV Lasix 40 mg twice daily. Started her on IV vancomycin, ceftriaxone and azithromycin for possible healthcare associated pneumonia and she also required IV steroids for COPD exacerbation. Eventually, her pCO2 trended down with continuous BiPAP and she was transitioned to BiPAP during bedtime and naps. We continued all her home medications for AFib, hypothyroidism, anxiety and depression. Her urinalysis was positive for leukocyte esterase and WBCs. However, her urine cultures showed no growth. She had history of multidrug resistant urine cultures and MRSA in her urine. Therefore, started her on contact precautions. Towards the end of her hospital stay, her blood pressures were soft and required down titrating her blood pressure medications. On the day of discharge, the patient was stable and had no new complaints. She is being discharged back to [facility] care facility. Discharge medications: Tab Diamox 250 mg twice daily for 7 days Tab Lasix 20 mg b.i.d. Tab diltiazem 30 mg b.i.d. Tab carvedilol 3.125 mg b.i.d. Atorvastatin 20 mg daily Levothyroxine 150 mcg daily Liothyronine 25 mcg daily Fluoxetine 10 mg daily Amitriptyline 50 mg daily Eliquis 5 mg b.i.d. Culturelle 10 M b.i.d. for 2 months Advice at discharge: Follow up with PCP in one week. The patient might be a candidate for Trilogy. Please consult a yeast fermentation attendant for further evaluation. Continue BiPAP during bedtime and nap times. Continue eliquis. Continue Diamox 250 mg orally twice daily for 7 days. Repeat BMP in 3 days. Follow up with urologist for Brown's care. Bowel and bladder care, aspiration and fall precautions. Examination at discharge: Elderly female, alert and oriented Head: Normocephalic with an atraumatic Eyes: Pupils- 3mm, reacting to light, conjunctiva- anicteric Nose and throat: No polyps, septum- normal, no mucosal ulcers Neck: Supple, no lymphadenopathy, no carotid bruit Respiratory: Bilaterally diminished breath sounds heard Cardiac: S1-S2 heard, rhythm irregular, pansystolic murmur in the aortic region Abdomen: non distended, no tenderness, no organomegaly, bowel sounds - heard Extremities: no clubbing, no pedal edema, no deformities, chronic venous congestion Skin: warm and dry, no rash, no purpura Neuro: No focal deficit, gross cranial nerve exam - normal Vital Signs Date Time Temp Pulse Resp B/P (MAP) Pulse Ox O2 Delivery O2 Flow Rate FiO2 11/29/24 11:24 89 18 Nasal Cannula 1.0 11/29/24 11:17 99 24 11/29/24 06:00 96.1 129/69 (89) Laboratory Tests Test 11/28/24 03:51 11/28/24 06:13 11/29/24 06:05 11/29/24 10:09 Blood Gas Specimen Type Arterial Blood Gas Puncture Site Lr O2 Saturation 96.6 % Arterial Blood pH (Temp corrected) 7.452 Arterial Blood pCO2 (Temp correct) 55.5 mmHg Arterial Blood pO2 (Temp corrected) 86.4 mmHg Arterial Blood PO2/FiO2 Ratio 3.46 mmHg/% Arterial Blood HCO3 37.9 mmol/L Arterial Blood Base Excess 12.2 mmol/L Arterial Blood Oxyhemoglobin 96.2 % Arterial Blood Carboxyhemoglobin 0.4 % Arterial Blood Methemoglobin 0.0 % Arterial Blood Deoxyhemoglobin 3.4 % Sami Test Positive Blood Gas Hemoglobin 10.6 G/dl Blood Gas Temperature 37.0 Blood Gas Set Respiration Rate 12 b/min Blood Gas Modality Mask - bipap FiO2 25.0 mmHg/% White Blood Count 9.7 X10'3 10.2 X10'3 Red Blood Count 3.33 X10'6 3.49 X10'6 Hemoglobin 10.3 g/dl 10.7 g/dl Hematocrit 30.5 % 32.4 % Mean Corpuscular Volume 91.4 FL 93.0 FL Mean Corpuscular Hemoglobin 30.9 PG 30.8 PG Mean Corpuscular Hemoglobin Concent 33.8 g/dL 33.1 g/dL Red Cell Distribution Width 14.0 % 14.3 % Platelet Count 228 X10'3 204 X10'3 Mean Platelet Volume 8.2 FL 8.6 FL Neutrophils (%) (Auto) 90.4 % 89.6 % Lymphocytes (%) (Auto) 5.7 % 6.0 % Monocytes (%) (Auto) 3.8 % 4.3 % Eosinophils (%) (Auto) 0 % 0 % Basophils (%) (Auto) 0.1 % 0.1 % Neutrophils # (Auto) 8.8 X10'3 9.1 X10'3 Lymphocytes # (Auto) 0.6 X10'3 0.6 X10'3 Monocytes # (Auto) 0.4 X10'3 0.4 X10'3 Eosinophils # (Auto) 0.0 X10'3 0.0 X10'3 Basophils # (Auto) 0.0 X10'3 0.0 X10'3 CBC Comment Sodium Level 139 MMOL/L 140 MMOL/L Potassium Level 3.3 MMOL/L 4.0 MMOL/L Chloride Level 100 MMOL/L 104 MMOL/L Carbon Dioxide Level 36.6 MMOL/L 39.8 MMOL/L Anion Gap 2 -4 Blood Urea Nitrogen 27 MG/DL 27 MG/DL Creatinine 0.98 MG/DL 0.89 MG/DL Estimated GFR/1.73 m2 55 ML/MIN 62 ML/MIN BUN/Creatinine Ratio 27.6 30.3 Glucose Level 176 MG/DL 232 MG/DL Calcium Level 9.1 MG/DL 9.0 MG/DL Magnesium Level 2.2 MG/DL 2.3 MG/DL Total Bilirubin 0.4 MG/DL 0.4 MG/DL Aspartate Amino Transf (AST/SGOT) 15 U/L 15 U/L Alanine Aminotransferase (ALT/SGPT) 11 U/L 11 U/L Alkaline Phosphatase 57 IU/L 58 IU/L Total Protein 6.0 G/DL 6.0 G/DL Albumin 2.2 G/DL 2.2 G/DL Globulin 3.8 G/DL 3.8 G/DL Albumin/Globulin Ratio 0.6 0.6 Chemistry Comments Vancomycin Level Trough 23.8 ug/mL Lipid panel - LDL 57, total cholesterol 112, HDL 37, triglycerides 107 Procalcitonin 0.08 TSH 0.37 Lactic acid 1.5 Blood cultures-no growth Urine cultures-no growth Nasal MRSA screen positive *Problems/Diagnosis: (1) Metabolic encephalopathy Status: Acute (2) Hypercapnic respiratory failure Status: Chronic (3) COPD (chronic obstructive pulmonary disease) (4) Acute exacerbation of CHF (congestive heart failure) Status: Acute (5) Hypothyroidism (6) Obesity hypoventilation syndrome Status: Acute (7) Atrial fibrillation with RVR Status: Resolved Total Time Spent on D/C: > 30 Minutes Date of Service: Nov 29, 2024 Billing Provider: ERASMO GUSTAFSON MD Common Visit Codes: [id number] DISCH DAY >30min ESTEFANIA CARBAJAL, RES Nov 29, 2024 16:42 ERASMO GUSTAFSON MD Nov 30, 2024 15:49
[2024-11-29] MEDS ORDERED: VANCOMYCIN 500MG/WATER FOR INJ (PEG) PREMIX 100 ML IV SCH (22:00)
[2024-12-01] MEDS ORDERED: VANCOMYCIN LEVEL IV ONE (09:30)
== END 2024-11-29 12:54 | DRG 871 ==
LOC: ER 07:35 → ED HOLD 10:08 → PCU 3S 12:31
PROVIDERS: ADMIT Internal Medicine; ATTEND Internal Medicine
PROC: 5A09357 Assistance with Respiratory Ventilation, Less than 24 Consecutive Hours, Continuous Positive Airway Pressure (ICD-10-PCS; principal; 2024-11-24)
PROC: B32T1ZZ Computerized Tomography (CT Scan) of Left Pulmonary Artery using Low Osmolar Contrast (ICD-10-PCS; 2024-11-24)
PROC: B3201ZZ Computerized Tomography (CT Scan) of Thoracic Aorta using Low Osmolar Contrast (ICD-10-PCS; 2024-11-24)
PROC: B32S1ZZ Computerized Tomography (CT Scan) of Right Pulmonary Artery using Low Osmolar Contrast (ICD-10-PCS; 2024-11-24)
PROC: 5A09357 Assistance with Respiratory Ventilation, Less than 24 Consecutive Hours, Continuous Positive Airway Pressure (ICD-10-PCS; 2024-11-25)
PROC: 5A09357 Assistance with Respiratory Ventilation, Less than 24 Consecutive Hours, Continuous Positive Airway Pressure (ICD-10-PCS; 2024-11-26)
PROC: 5A09357 Assistance with Respiratory Ventilation, Less than 24 Consecutive Hours, Continuous Positive Airway Pressure (ICD-10-PCS; 2024-11-27)
PROC: 5A09357 Assistance with Respiratory Ventilation, Less than 24 Consecutive Hours, Continuous Positive Airway Pressure (ICD-10-PCS; 2024-11-28)
PROC: 5A09357 Assistance with Respiratory Ventilation, Less than 24 Consecutive Hours, Continuous Positive Airway Pressure (ICD-10-PCS; 2024-11-29)
DX: A41.9 Sepsis, unspecified organism (principal); G93.41 Metabolic encephalopathy; I50.33 Acute on chronic diastolic (congestive) heart failure; J96.22 Acute and chronic respiratory failure with hypercapnia; J15.69 Pneumonia due to other Gram-negative bacteria; J15.9 Unspecified bacterial pneumonia; E66.2 Morbid (severe) obesity with alveolar hypoventilation; E87.4 Mixed disorder of acid-base balance; J44.0 Chronic obstructive pulmonary disease with (acute) lower respiratory infection; J44.1 Chronic obstructive pulmonary disease with (acute) exacerbation; I11.0 Hypertensive heart disease with heart failure; E89.0 Postprocedural hypothyroidism; E11.9 Type 2 diabetes mellitus without complications; E78.00 Pure hypercholesterolemia, unspecified; I48.91 Unspecified atrial fibrillation; M54.9 Dorsalgia, unspecified; F41.9 Anxiety disorder, unspecified; F32.A Depression, unspecified; Z88.5 Allergy status to narcotic agent; Z85.3 Personal history of malignant neoplasm of breast; Z90.49 Acquired absence of other specified parts of digestive tract; Z68.32 Body mass index [BMI] 32.0-32.9, adult; Z87.440 Personal history of urinary (tract) infections
CPT/HCPCS: 36415; 36600; 70450; 71045; 71275; 72193; 73620; 80053; 80061; 80202; 80305; 80320; 81001; 82803; 82948; 83605; 83735; 83880; 84145; 84443; 85018; 85025; 85379; 87040; 87081; 87088; 92508; 92616; 93005; 93970; 94640; 94660; 94760; 96365; 96375; 96376; 97161; 97530; 99291; A4314; A4615; A4620; A6212; A6213; A6250; A6258; G0378; J0696; J1120; J1938; J2060; J2405; J2470; J2919; J3370; J3480; J7040; J7050; Q0177; Q9967

== ENCOUNTER 2025-01-28 13:24 | Emergency (ER) | payer MEDICARE, MEDICAID ==
[~2025-01-28] VITALS: Ht 172.7 cm; Wt 100.0 kg
[~2025-01-28 13:24] MED LIST changes: +ATOR20TA66 PO; +DILT60CA2 PO
[2025-01-28 13:26] VITALS: TEMP 98
--- NOTE | 2025-01-28 13:29 | Physician Documentation ---
History of Present Illness General Stated Complaint: LETHERGY Time Seen by MD: 13:28 Primary Medical Doctor: Dr. wong History of Present Illness Initial Comments Patient is a 79-year-old with a long history of COPD who presents to the emergency department being transferred from [facility] for confusion, and a concern for hyper tachypnea. The patient was more confused this morning and more lethargic per respiratory therapy. She does have a history of hypercarbia. The patient does wear BiPAP, she is not very compliant at night with the BiPAP and she does get confused when her CO2 climbs. The patient has a long history of COPD. Patient has been on in her mid and low-level oxygen therapy. The history was augmented by family members who states they interacted with her earlier and she was slightly confused and lethargic, according to her significant other this has improved significantly. No reported chest pain no fevers no chills no nausea vomiting or diarrhea symptoms are moderate and persistent. Medication Reconciliation Allergies: Coded Allergies: morphine (Unverified Allergy, Severe, 11/19/24) codeine (Verified Allergy, Unknown, 11/19/24) cortisone (Unverified Allergy, Unknown, 11/19/24) PT HAS RECEIVED METHYLPREDNISOLONE IN PAST, 2023 Scheduled Amitriptyline Hcl (Elavil), 1 TAB PO HS, (Reported) Apixaban (Eliquis), 1 TAB PO BID, (Reported) Ascorbic Acid* (Vitamin C*), 4 TAB PO DAILY, (Reported) Atorvastatin Calcium (LIPITOR tablet), 20 MG PO DAILY Carvedilol (Coreg), 1 TAB PO BID, (Reported) Cholecalciferol (Vitamin D), 1 TAB PO DAILY, (Reported) Diltiazem HCl (Diltiazem ER), 1 CAP PO Q12H Fluoxetine HCl (Fluoxetine HCl), 1 CAP PO DAILY, (Reported) Fluticasone/Vilanterol (Breo Ellipta 200-25 Mcg INH), 1 PUFFS INH DAILY, (Reported) Furosemide (Lasix), 1 TAB PO BID, (Reported) Hydroxyzine Hcl* (Atarax*), 1 TAB PO HS, (Reported) Levothyroxine Sodium (Levothyroxine), 1 CAP PO DAILY, (Reported) Liothyronine Sodium* (Liothyronine Sodium*), 1 TAB PO DAILY, (Reported) Magnesium Oxide (Magnesium), 400 MG PO DAILY, (Reported) Metformin Hcl* (Glucophage*), 1 TAB PO BID, (Reported) Potassium Chloride (Klor-Con), 20 MEQ PO DAILY, (Reported) Ubidecarenone (Co Q-10), 1 CAP PO DAILY, (Reported) Vitamin B Complex (B Complex), 1 TAB PO DAILY, (Reported) Zinc Sulfate (Zinc-220), 1 CAP PO DAILY, (Reported) Scheduled PRN Calcium Carbonate (Calcium Carbonate), 1 TAB PO Q4H PRN for indigestion/dyspepsia, (Reported) Past Medical History Past Medical History: Atrial Fibrillation, High Cholesterol, Hypertension, Asthma, UTI, Diabetes, Hypothyroidism, Chronic Back Pain, Breast Cancer Past Surgical History: cholecystectomy, hysterectomy, orthopedic surgeries Other Past Surgical History: Thyroidectomy Smoking: Quit greater than 1 year Alcohol Use: None Drug Use: none Lives with: Spouse Lives In: Home Occupation: retired Review of Systems All Other Systems at this time: Reviewed and Negative Physical Exam Physical Exam Physical Exam VITALS: Reviewed and as above. GENERAL: Alert, no apparent distress. HEENT: Normocephalic, atraumatic, PERRL, EOMI, dry mucosa, no erythema RESPIRATORY: Diminished breath sounds bilaterally CHEST: No accessory muscle use, no retractions CV: Regular rate, rhythm, no edema, no murmur, No: JVD GI: Soft, non-tender, bowels sounds present, no rebound, guarding, or rigidity BACK: No CVA tenderness, or swelling MUSCULOSKELETAL: No deformities, no edema SKIN: Warm and dry, no rash NEURO: Oriented x4, No motor or sensory deficit PSYCH: Normal mood and affect, no agitation Progress Results/Orders Results/Orders Orders - OHLJASSON HOWE MD Abg (Arterial Blood Gas) (01/28/25 ) Bipap/Cpap (01/28/25 ) Chest,Single View (01/28/25 ) Completed Orders - JASSON SHAH MD Electrocardiogram (01/28/25 ) Cbc/Diff (01/28/25 13:54) BMP (01/28/25 13:54) Procalcitonin (01/28/25 13:54) Chest,Single View (01/28/25 ) Vital Signs 01/28/25 01/28/25 01/28/2522/25 13:26 13:36 13:39 14:01 Temp 98.0 Pulse 99 94 97 Resp 19 23 22 23 B/P (MAP) 116/58 Pulse Ox 97 98 94 O2 Delivery Nasal Cannula* O2 Flow Rate 6.0 1 FiO2 28 01/28/25 01/28/25 01/28/25 01/28/25 14:39 15:42 16:23 16:34 Pulse 101 102 106 102 Resp 24 B/P (MAP) 142/117 (125) 111/58 (75) 104/63 (77) Pulse Ox 96 89 93 96 O2 Delivery Nasal Cannula* O2 Flow Rate 0 2.0 1 FiO2 24 01/28/25 17:59 Pulse 112 Resp B/P (MAP) 115/43 Pulse Ox 93 Laboratory Tests Test 01/28/25 13:41 01/28/25 13:47 White Blood Count 5.6 Red Blood Count 2.92 L Hemoglobin 9.0 L Hematocrit 27.0 L Mean Corpuscular Volume 92.5 Mean Corpuscular Hemoglobin 30.9 Mean Corpuscular Hemoglobin Concent 33.4 Red Cell Distribution Width 15.7 H Platelet Count 138 L Mean Platelet Volume 8.9 Neutrophils (%) (Auto) 70.7 Lymphocytes (%) (Auto) 17.9 L Monocytes (%) (Auto) 8.3 Eosinophils (%) (Auto) 2.6 Basophils (%) (Auto) 0.5 Neutrophils # (Auto) 4.0 Lymphocytes # (Auto) 1.0 L Monocytes # (Auto) 0.5 Eosinophils # (Auto) 0.1 Basophils # (Auto) 0.0 CBC Comment Sodium Level 142 Potassium Level 4.1 Chloride Level 97 L Carbon Dioxide Level 44.8 *H Anion Gap 0 L Blood Urea Nitrogen 9 Creatinine 0.60 Estimated GFR/1.73 m2 > 90 BUN/Creatinine Ratio 15.0 Glucose Level 78 Calcium Level 9.0 Albumin 2.6 L Procalcitonin < 0.05 Chemistry Comments Blood Gas Specimen Type Arterial Blood Gas Puncture Site Rr O2 Saturation 93.6 L Arterial Blood pH (Temp corrected) 7.391 Arterial Blood pCO2 (Temp correct) 77.0 *H Arterial Blood pO2 (Temp corrected) 67.7 L Arterial Blood PO2/FiO2 Ratio 2.42 Arterial Blood HCO3 45.7 H Arterial Blood Base Excess 17.9 H Arterial Blood Oxyhemoglobin 93.0 L Arterial Blood Carboxyhemoglobin 0.3 L Arterial Blood Methemoglobin 0.3 Arterial Blood Deoxyhemoglobin 6.4 H Sami Test Positive Blood Gas Hemoglobin 9.6 L Blood Gas Temperature 37.0 Blood Gas Set Respiration Rate 14 Blood Gas Modality Mask - bipap FiO2 28.0 Blood Gas Tidal Volume 420 Blood Gas Critical Value Called To md Mauri EKG/XRAY/CT/US/VASC/MRI Chest X-Ray : Additional Comments Patient: CIPRIANO IRELAND Medical Record: [id number] [facility] : 1945, Age: 79 Sex: Female Location: ER Patient Status: REG ER Service Date/Time: 01/28/25/ 0000 Ordering Physician: JASSON SHAH MD Exam: CHEST,SINGLE VIEW CHEST RADIOGRAPH Indication: coipd Technique: Single frontal view of the chest was obtained Comparison: CT CTA CHEST PE W/ IV CONTRAST on DOS: 11/24/24, DI CHEST,SINGLE VIEW on DOS: 11/24/24, DI CHEST,SINGLE VIEW on DOS: 11/19/24, DI CHEST,SINGLE VIEW on DOS: 10/22/24, DI CHEST,SINGLE VIEW on DOS: 09/09/24 FINDINGS: Lines and Tubes: None Lungs: Increased interstitial opacities Pleura: Small bilateral pleural effusions No pneumothorax. Cardiomediastinal contours: Cardiomegaly. Bones: No acute osseous abnormality. IMPRESSION: Cardiomegaly with CHF. . Small bilateral pleural effusions Electronically Signed by:BONNIE SUAREZ MD Date & Time: 01/28/251446 Dictated by: BONNIE SUAREZ MD Dictation date and time: 01/28/251446 Primary Care Provider: NO PRIMARY CARE PROVIDER cc: JASSON SHAH MD ~ Medical Decision Making Findings The patient's EKG demonstrates atrial fibrillation with a rate of 92 there is a normal axis there was nonspecific ST abnormalities the EKG was interpreted by me as an abnormal EKG the time of the EKG was 1331. The patient's pulse oximetry was interpreted by me as being low and abnormal . The patient's panel monitor was interpreted as atrial fibrillation. Prior hospitalizations were reviewed the patient's labs and imaging were all reviewed. The patient's chest x-ray was interpreted by me it shows bilateral alveolar infiltrates consistent with pulmonary edema and had also shows an enlarged cardiac silhouette and normal- appearing bony structures my impression was congestive heart failure. I have also reviewed the radiologist's interpretation and agree with their interpretation as written. The patient has a long history of COPD she was more confused earlier [place] [facility] it may be due secondary to her not been compliant with her CPAP, the patient has been on BiPAP here in the emergency room and she is back to her neurologic baseline per family the patient will be transferred back to [place] [facility]. Departure Impression: Primary Impression: COPD (chronic obstructive pulmonary disease) Qualified Codes: J42 - Unspecified chronic bronchitis Discharge Instructions: Supporting Someone With COPD Referrals: NO PRIMARY CARE PROVIDER (PCP) Signature Scribe Signature: no scribe Attestation: The note accurately reflects work and decisions made by me.Jasson Shah MD 01/31/25 00:11 JASSON SHAH MD Jan 28, 2025 13:29
[2025-01-28 13:36] VITALS: PULSE 94; RESP 23; O2SAT 98
--- NOTE | 2025-01-28 13:37 | ELECTROCARDIOGRAPH REPORT ---
[facility] Test Date: 2025-01-28 Test Time: 13:31:40 Pat Name: CIPRIANO IRELAND Department: EMERGENCY ROOM [id number] Room: Gender: F Signal Timer: JENNIFER : 1945 Requested By: JASSON DAILY Order Number: [id number] Reading MD: Measurements Intervals [place] Rate: 92 P: 0 NH: 0 QRS: 6 QRSD: 88 T: 48 QT: 354 QTc: 438 Interpretive Statements Atrial fibrillation Ventricular premature complex Please click the below link to view image of tracing.
[2025-01-28 13:52] LABS: ABG BASE EXCESS 17.9 mmol/L (-2.0-3.0); ABG HCO3 45.7 mmol/L (21.0-28.0); ABG OXYGEN SATURATION 93.6 % (94.0-98.0); ABG PCO2 (T) 77.0 mmHg (32.0-45.0); ABG PH (T) 7.391 (7.350-7.450); ABG PO2 (T) 67.7 mmHg (83.0-108.0); ALLEN'S TEST POSITIVE; FCOHb 0.3 % (0.5-1.5); FHHb 6.4 % (0.0-5.0); FIO2 28.0 mmHg/%; FMetHb 0.3 % (0.0-1.5); FO2Hb 93.0 % (94.0-98.0); MODE MASK - BIPAP; PATIENT TEMPERATURE 37.0; RESPIRATORY RATE 14 b/min; TIDAL VOLUME 420 mL; TOTAL HEMOGLOBIN 9.6 G/dl (12.0-16.0)
[2025-01-28 14:01] VITALS: PULSE 97; RESP 22; O2SAT 94
[2025-01-28 14:12] LABS: MEAN PLATELET VOLUME 8.9 FL (7.4-10.4); RED CELL DISTRIBUTION WIDTH 15.7 % (11.5-14.5)
[2025-01-28 14:25] LABS: CREATININE 0.60 MG/DL (0.40-0.90); eCRCL 78 ML/MIN; eGFR > 90 ML/MIN
[2025-01-28 14:34] LABS: TOTAL CARBON DIOXIDE 44.8 MMOL/L (24-32)
--- NOTE | 2025-01-28 14:49 | RADIOLOGY REPORT ---
CHEST RADIOGRAPH Indication: coipd Technique: Single frontal view of the chest was obtained Comparison: CT CTA CHEST PE W/ IV CONTRAST on DOS: 11/24/24, DI CHEST,SINGLE VIEW on DOS: 11/24/24, DI CHEST,SINGLE VIEW on DOS: 11/19/24, DI CHEST,SINGLE VIEW on DOS: 10/22/24, DI CHEST,SINGLE VIEW on DOS: 09/09/24 FINDINGS: Lines and Tubes: None Lungs: Increased interstitial opacities Pleura: Small bilateral pleural effusions No pneumothorax. Cardiomediastinal contours: Cardiomegaly. Bones: No acute osseous abnormality. IMPRESSION: Cardiomegaly with CHF. . Small bilateral pleural effusions
[2025-01-28 16:23] VITALS: PULSE 106; RESP 20; O2SAT 93
[2025-01-28 17:59] VITALS: BP 115/43; PULSE 112; RESP 26; O2SAT 93
== END 2025-01-28 18:07 ==
LOC: ER 13:24
DX: J44.9 Chronic obstructive pulmonary disease, unspecified (principal); E03.9 Hypothyroidism, unspecified; E11.9 Type 2 diabetes mellitus without complications; E78.00 Pure hypercholesterolemia, unspecified; I11.0 Hypertensive heart disease with heart failure; I50.9 Heart failure, unspecified; I48.91 Unspecified atrial fibrillation; Z88.5 Allergy status to narcotic agent; Z88.8 Allergy status to other drugs, medicaments and biological substances; Z90.49 Acquired absence of other specified parts of digestive tract; Z90.710 Acquired absence of both cervix and uterus
CPT/HCPCS: 36415; 36600; 71045; 80048; 82803; 84145; 85018; 85025; 93005; 94660; 99285; A4615; 94760

== ENCOUNTER 2025-03-12 14:16 | Inpatient (IN) | payer MEDICARE, MEDICAID ==
[2025-03-12] VITALS (8 sets, daily range): BP systolic 97; BP diastolic 55; PULSE 74–95; RESP 17–20; TEMP 97.2; O2SAT 97–100
[~2025-03-12] VITALS: Ht 172.7 cm; Wt 99.1 kg
[~2025-03-12 14:16] MED LIST changes: -LEVO125C5 PO; -LIOT25TA12 PO
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
--- NOTE | 2025-03-12 14:49 | ELECTROCARDIOGRAPH REPORT ---
[facility] Test Date: 2025-03-12 Test Time: 14:46:50 Pat Name: CIPRIANO IRELAND Department: [facility]ER Patient ID: [facility]-[id number] Room: ED 11 Gender: F [employer]: : 1945 Requested By: ANA ALCOCER Order Number: [id number] Reading MD: Dr. Dallin Atkinson Measurements Intervals [place] Rate: 86 P: 0 [place]: 0 QRS: 1 QRSD: 90 T: 59 QT: 376 QTc: 450 Interpretive Statements Atrial fibrillation Electronically Signed On 03-12-2025 18:50:[address] Dallin Atkinson Please click the below link to view image of tracing.
[2025-03-12 15:06] LABS: MEAN PLATELET VOLUME 8.9 FL (7.4-10.4); RED CELL DISTRIBUTION WIDTH 14.8 % (11.5-14.5)
--- NOTE | 2025-03-12 15:11 | RADIOLOGY REPORT ---
CHEST RADIOGRAPH Indication: SOB Technique: Single frontal view of the chest was obtained Comparison: DI CHEST,SINGLE VIEW on DOS: 02/11/25, DI CHEST,SINGLE VIEW on DOS: 01/28/25, DI CHEST,SINGLE VIEW on DOS: 11/24/24 FINDINGS: Lines and Tubes: None Lungs: Diffuse interstitial prominence with left mid to lower lung zone opacification, Right lower lung zone opacification and Obscuration of bilateral hemidiaphragm. No pneumothorax. Cardiomediastinal contours: Moderate cardiomegaly with mild Atherosclerotic calcification uncoiling of the aorta. Bones: No acute osseous abnormality. Nonspecific hyperdensities within the soft tissues of the right axillary region which may be external to the patient, or may represent nonspecific soft tissue Calcifications IMPRESSION: Cardiomegaly with findings suggestive of congestive heart failure and Small right with moderate left-sided pleural effusions. Underlying infectious process can not be excluded.
[2025-03-12 15:29] LABS: CREATININE 0.80 MG/DL (0.40-0.90); eCRCL 58 ML/MIN; eGFR 69 ML/MIN
[2025-03-12 15:34] LABS: TOTAL CARBON DIOXIDE 40.8 MMOL/L (24-32)
[2025-03-12] MEDS: albuterol 2.5 MG/3 ML nebule NEB ONE (15:47)
[2025-03-12 16:00] LABS: PRO BRAIN NATRIURETIC PEPTIDE 3871 PG/ML (0-450)
[2025-03-12] MEDS ORDERED: HYDROcodone/acetaminophen 10/325mg tab PO PRN (16:10)
[2025-03-12] MEDS ORDERED: ondansetron/PF 4mg/2ml inj IV PRN (16:10)
[2025-03-12] MEDS ORDERED: mag hydrox/Alum hydrox/simeth 30ml oral suspension PO PRN (16:10)
[2025-03-12] MEDS ORDERED: potassium Cl 40MEQ/1/2NS 520ml 520 ML IV PRN (16:10)
[2025-03-12] MEDS ORDERED: albuterol 2.5 MG/3 ML nebule NEB PRN (16:10)
[2025-03-12] MEDS ORDERED: HYDROcodone/acetaminophen 5mg/325mg tablet PO PRN (16:10)
[2025-03-12] MEDS ORDERED: magnesium hydroxide 30ml (MOM) UD suspension PO PRN (16:10)
[2025-03-12] MEDS ORDERED: magnesium sulf-water 2g/50mL 50 ML IV PRN (16:10)
[2025-03-12] MEDS ORDERED: potassium Cl 20 mEq SR tablet PO PRN (16:10)
[2025-03-12] MEDS ORDERED: magnesium sulf-water 4G/100mL 100 ML IV PRN (16:10)
[2025-03-12] MEDS ORDERED: ondansetron 4mg rapidly disintigrating tab PO PRN (16:10)
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
[2025-03-12] MEDS ORDERED: morphine 4 MG/ML inj SYRINge IV PRN ×2 (16:32)
[2025-03-12] MEDS: CefTRIAXone/D5W-Rocephin 1gm 50 ML IV ONE (17:12)
[2025-03-12] MEDS: acetaZOLAMIDE IV 500mg inj IV ONE (18:26)
[2025-03-12] MEDS: azithromycin/NS 500mg/250ml 250 ML IV ONE (18:29)
[2025-03-12] MEDS: ipratropium/albuterol 3ml nebule NEB SCH (19:52)
[2025-03-12] MEDS ORDERED: sacubitril/valsartan 24mg-26mg tablet PO SCH (20:00)
[2025-03-12] MEDS: docusate sod 100mg capsule PO SCH (20:00)
[2025-03-12] MEDS: K and/or MAG REPLACEMENT MC SCH (20:00)
[2025-03-12] MEDS ORDERED: CARV3.122 PO (23:53)
[2025-03-13] VITALS (15 sets, daily range): BP systolic 99–142; BP diastolic 44–57; PULSE 87–99; RESP 14–22; TEMP 97.3–98.9; O2SAT 90–99
[2025-03-13] MEDS ORDERED: heparin, porcine 5000 units/ml vial SQ SCH
[2025-03-13] MEDS ORDERED: EMPA10TA PO (02:17)
[2025-03-13] MEDS ORDERED: FLUO-81 (02:17)
[2025-03-13] MEDS ORDERED: METO25TA6 PO (02:17)
[2025-03-13] MEDS ORDERED: METO100T14 PO (02:17)
[2025-03-13] MEDS ORDERED: METF-1203 PO (02:17)
[2025-03-13] MEDS ORDERED: FURO20TA4 PO (02:17)
[2025-03-13] MEDS ORDERED: CARV3.1244 PO (02:17)
[2025-03-13] MEDS ORDERED: DILT60TA PO (02:30)
[2025-03-13] MEDS ORDERED: PANT40TA54 PO (02:30)
[2025-03-13] MEDS ORDERED: LEVO100T9 PO (02:30)
[2025-03-13] MEDS ORDERED: ATOR20TA66 PO (02:30)
[2025-03-13] MEDS ORDERED: AMIT50TA15 PO (02:31)
[2025-03-13] MEDS ORDERED: APIX5TAB3 PO (02:43)
[2025-03-13 06:34] LABS: MEAN PLATELET VOLUME 8.9 FL (7.4-10.4); RED CELL DISTRIBUTION WIDTH 15.2 % (11.5-14.5)
[2025-03-13 07:06] LABS: CREATININE 0.94 MG/DL (0.40-0.90); LACTATE DEHYDROGENASE 185 U/L (81-234); PRO BRAIN NATRIURETIC PEPTIDE 5059 PG/ML (0-450); eCRCL 50 ML/MIN; eGFR 58 ML/MIN
[2025-03-13 07:24] LABS: TOTAL CARBON DIOXIDE 40.3 MMOL/L (24-32)
[2025-03-13] MEDS: CefTRIAXone/D5W-Rocephin 1gm 50 ML IV SCH (09:07)
[2025-03-13] MEDS: azithromycin/NS 500mg/250ml 250 ML IV SCH (09:14)
--- NOTE | 2025-03-13 10:30 | PROGRESS NOTE ---
Daily Progress Note Providers to CC ~ Antibiotic Timeout Antibiotic Ordered?: Yes Subjective No acute events overnight. Patient examined at bedside. No new complaints, not in acute distress. Patient denies chest pain, sob, palpitations, abdominal pain, n/v/d. Vss, on 2L O2, persistent elevated of bicarb. One dose of Lasix and one dose diamox given since admission, pBNP uptrending, Cr slightly uptrending, urine output positive 100ml, Lasix dose adjusted. Objective Vital Signs Date Time Temp Pulse Resp B/P (MAP) Pulse Ox O2 Delivery O2 Flow Rate FiO2 03/13/25 09:04 99 03/13/25 08:00 16 96 Nasal Cannula 2.0 03/13/25 07:10 28 03/13/25 06:00 98.7 108/44 (65) Result Diagram: 03/13/25 0559 03/13/25 0559 Physical Exam General: Lethargic, A&Ox 3, NAD HEENT: Normocephalic, PERRLA Neck: Supple, trachea midline, no JVD Chest: Diminished left lower lobe of lung, clear right lung sounds Cardiovascular: IRIR Abdomen: Soft and nontender Extremities: No cyanosis/clubbing/or edema Central Nervous System: CN II-XII intact, no focal deficits Musculoskeletal: No paraspinal muscle tenderness, no muscle spasm Skin: Warm and intact Problem\Assessment\Plan Assessment & Plan Acute decompensated diastolic heart failure, LVEF 50% Acute COPD exacerbation Acute hypoxic respiratory failure 2/2 above -TTE LVEF 50%, RVSP 58mmHg, no significant VHD; CXR small right and moderate left sided pleural effusions -GDMT as tolerated, steroid, bronchodilators, empirical abx, supplemental oxygen, thoracentesis ordered 03/13: persistent elevated of bicarb. One dose of Lasix and one dose acetazolamide given since admission, Cr slightly uptrending, pBNP uptrending, urine output positive 100ml, Lasix dose adjusted. Pt refuses BiPAP. Anemia, normocytic Anemia of chronic disease Atrial fibrillation, CVR, CHADS-VASc 5 Possible underlying dementia Pulmonary hypertension Hypothyroidism LESLIE Class III obesity Anxiety disorder MDD -EKG afib at 86bpm, no ST elevation/depression -CPAP at night, pending med rec DVT/VTE prophylaxis: Eliquis Code status: Full code Date of Service: Mar 13, 2025 Billing Provider: JOSE ROBERTO PERALTA Common Visit Codes: [id number] INP/OBS CARE(HIGH) JOSE ROBERTO PERALTA Mar 13, 2025 10:30
[2025-03-13] MEDS: mineral oil 133ml enema RC PRN (13:47)
[2025-03-13] MEDS: acetaZOLAMIDE IV 500mg inj IV ONE (13:47)
[2025-03-14 03:34] VITALS: PULSE 94; RESP 20; O2SAT 97
[2025-03-14 03:42] VITALS: PULSE 93; RESP 18
[2025-03-14 06:00] VITALS: BP 112/62; PULSE 91; RESP 14; TEMP 98.1; O2SAT 93
[2025-03-14 06:27] LABS: MEAN PLATELET VOLUME 8.7 FL (7.4-10.4); RED CELL DISTRIBUTION WIDTH 15.6 % (11.5-14.5)
[2025-03-14 06:37] LABS: CREATININE 0.96 MG/DL (0.40-0.90); PRO BRAIN NATRIURETIC PEPTIDE 7556 PG/ML (0-450); eCRCL 49 ML/MIN; eGFR 56 ML/MIN
[2025-03-14 06:46] LABS: TOTAL CARBON DIOXIDE 43.3 MMOL/L (24-32)
[2025-03-14 07:58] VITALS: PULSE 93; PULSE 94; RESP 18; RESP 20; O2SAT 97
[2025-03-14 08:00] VITALS: RESP 16; O2SAT 95
[2025-03-14 08:09] LABS: LACTATE DEHYDROGENASE 187 U/L (81-234)
[2025-03-14 10:00] VITALS: BP 103/48; PULSE 101; RESP 14; TEMP 98; O2SAT 98
[2025-03-14] MEDS: potassium Cl 20 mEq SR tablet PO PRN (11:47)
--- NOTE | 2025-03-14 14:48 | RADIOLOGY REPORT ---
PROCEDURE: ULTRASOUND GUIDED THORACENTESIS USING TEMPORARY CATHETER HISTORY: 79 Female with left requiring thoracentesis. DOCUMENTATION: Informed consent was obtained and a procedural time out was performed. TECHNIQUE: Trace left pleural effusion, too small for thoracentesis. FINDINGS: Trace left pleural effusion, too small for thoracentesis. IMPRESSION: Trace left pleural effusion, too small for thoracentesis.
[2025-03-14] MEDS: FLU VACC TS2025-26(6MOS UP)/PF (FLULAVAL) 45 MCG/0.5 ML SYRINGE IMVAC ONE (15:43)
--- NOTE | 2025-03-14 18:49 | DISCHARGE SUMMARY ---
Discharge Summary Providers to CC ~ Discharge Summary Admission Diagnosis: acute CHF, acute COPD exacerbation, resp failure Hospital Course DATE OF ADMISSION: 03/12/25 DATE OF DISCHARGE: 03/14/25 Discharge Diagnosis\Comment: Anemia, normocytic Anemia of chronic disease Atrial fibrillation, CVR, CHADS-VASc 5 Possible underlying dementia Pulmonary hypertension Hypothyroidism LESLIE Class III obesity Anxiety disorder MDD Operations\Procedures: None Consultants: None Complications: None Condition on DC: Stable for transfer Discharge Summary: History of Present Illness Celina Nicolas is a 79-year-old female with a past medical history of COPD, LESLIE, diastolic heart failure who was brought to the ED from [facility] due to worsening of shortness of breath x 1 day. According to EMS the nursing staff had to increase oxygen to 3 L from her baseline which is 2 L as patient was satting in 80s. When EMS arrived, patient was 92% on 3 L. Patient uses CPAP at the facility but has not been wearing it due to patient refusal. Patient is to be admitted for further workups and treatment. Hospital Course Physical Exam General: A&Ox 3, NAD HEENT: Normocephalic, PERRLA Neck: Supple, trachea midline, no JVD Chest: Diminished left lower lobe of lung, clear right lung sounds Cardiovascular: IRIR Abdomen: Soft and nontender Extremities: No cyanosis/clubbing/or edema Central Nervous System: CN II-XII intact, no focal deficits Musculoskeletal: No paraspinal muscle tenderness, no muscle spasm Skin: Warm and intact *Problems/Diagnosis: (1) Obesity hypoventilation syndrome Status: Acute (2) CHF exacerbation Status: Acute (3) COPD (chronic obstructive pulmonary disease) Status: Chronic Total Time Spent on D/C: > 30 Minutes Date of Service: Mar 14, 2025 Billing Provider: JOSE ROBERTO PERALTA Common Visit Codes: 67117-YEG/OBS DISCH DAY >30min JOSE ROBERTO PERALTA Mar 14, 2025 18:49
== END 2025-03-14 16:52 | DRG 189 ==
LOC: ER 14:17 → ED HOLD 16:16 → EDBEDREQ 20:22 → ORTHO 4S 21:31
PROVIDERS: ADMIT Nurse Practitioner Family; ATTEND Nurse Practitioner Family
DX: J96.21 Acute and chronic respiratory failure with hypoxia (principal); I50.33 Acute on chronic diastolic (congestive) heart failure; F03.93 Unspecified dementia, unspecified severity, with mood disturbance; F03.94 Unspecified dementia, unspecified severity, with anxiety; J44.1 Chronic obstructive pulmonary disease with (acute) exacerbation; I11.0 Hypertensive heart disease with heart failure; J96.22 Acute and chronic respiratory failure with hypercapnia; D63.8 Anemia in other chronic diseases classified elsewhere; E11.9 Type 2 diabetes mellitus without complications; E78.00 Pure hypercholesterolemia, unspecified; E89.0 Postprocedural hypothyroidism; F32.9 Major depressive disorder, single episode, unspecified; I27.20 Pulmonary hypertension, unspecified; I48.91 Unspecified atrial fibrillation; J43.9 Emphysema, unspecified; Z85.3 Personal history of malignant neoplasm of breast; Z87.891 Personal history of nicotine dependence; Z88.5 Allergy status to narcotic agent; Z90.710 Acquired absence of both cervix and uterus; G89.29 Other chronic pain; M54.9 Dorsalgia, unspecified; Z90.49 Acquired absence of other specified parts of digestive tract; E66.813 Obesity, class 3; G47.33 Obstructive sleep apnea (adult) (pediatric); Z68.33 Body mass index [BMI] 33.0-33.9, adult
CPT/HCPCS: 36415; 71045; 80048; 80053; 83615; 83735; 83880; 84484; 85025; 87081; 93005; 94640; 94760; 97110; 97162; 97530; 99285; A6449; C1729; G0378; J0456; J0696; J1120; J1938; J2919

== ENCOUNTER 2025-04-21 18:48 | Emergency (ER) | payer MEDICARE, MEDICAID ==
[~2025-04-21] VITALS: Ht 172.7 cm; Wt 99.1 kg
[~2025-04-21 18:48] MED LIST changes: -AMIT-274 PO; +AMIT50TA15 PO; -CARV-49 PO; +CARV3.1244 PO; -DILT60CA2 PO; +DILT60TA PO; +EMPA10TA PO; -FLUO-331 PO; +FLUO-81; +LEVO100T9 PO; +METF-1203 PO; -METF500T PO; +METO100T14 PO; +METO25TA6 PO; +PANT40TA54 PO
[2025-04-21 18:55] VITALS: BP 164/60; PULSE 90; RESP 15; TEMP 96.3
[2025-04-21 19:01] VITALS: O2SAT 99
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
== END 2025-04-21 20:22 | disposition home or self-care (01) ==
LOC: ER 18:48
DX: K59.00 Constipation, unspecified (principal); E03.9 Hypothyroidism, unspecified; E11.9 Type 2 diabetes mellitus without complications; E78.00 Pure hypercholesterolemia, unspecified; G89.29 Other chronic pain; I10 Essential (primary) hypertension; J44.9 Chronic obstructive pulmonary disease, unspecified; I48.91 Unspecified atrial fibrillation; Z88.5 Allergy status to narcotic agent; Z88.8 Allergy status to other drugs, medicaments and biological substances; Z85.3 Personal history of malignant neoplasm of breast; Z90.49 Acquired absence of other specified parts of digestive tract; Z90.710 Acquired absence of both cervix and uterus; Z79.899 Other long term (current) drug therapy
CPT/HCPCS: 99283

== ENCOUNTER 2025-04-22 18:20 | Inpatient (IN) | payer MEDICARE, MEDICAID ==
[~2025-04-22] VITALS: Ht 172.7 cm; Wt 88.0 kg
--- NOTE | 2025-04-23 00:54 | RADIOLOGY REPORT ---
Exam: DI ABDOMEN,SINGLE VIEW(KUB) Indication: Not provided Comparison: None Technique: 2 views Findings: Nonobstructive bowel gas pattern. Large stool burden throughout the large bowel. The lower chest is unremarkable. No acute osseous finding. Degenerative changes and osteopenia. Impression: 1. Nonobstructive bowel gas pattern. 2. Large stool burden.
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
[2025-04-23 02:02] LABS: MEAN PLATELET VOLUME 8.8 FL (7.4-10.4); RED CELL DISTRIBUTION WIDTH 16.3 % (11.5-14.5)
[2025-04-23 02:21] LABS: CREATININE 0.82 MG/DL (0.40-0.90); eCRCL 57 ML/MIN; eGFR 67 ML/MIN
[2025-04-23 02:23] LABS: TOTAL CARBON DIOXIDE 40.2 MMOL/L (24-32)
[2025-04-23] MEDS ORDERED: iohexol 300mg/ml 100ml inj. ONE (06:15)
--- NOTE | 2025-04-23 08:37 | RADIOLOGY REPORT ---
Indication: constipation, no BM 5 days, abd distension Technique: CT axial images of the abdomen and pelvis are obtained with intravenous contrast. Coronal and sagittal reformats were obtained. Radiation Dose Information: CTDI volume is 29.8 mGy. Dose-length product is 1779 mGy*cm Comparison: CT CT ABDOMEN PELVIS on DOS: 08/11/24 FINDINGS: Small bilateral pleural effusions, [id number]-right. Cardiomegaly. Coronary artery calcification disease. Aortic atherosclerotic disease. Bibasilar atelectasis/consolidation. Adrenal glands, spleen unremarkable. Pancreatic fatty infiltration. No enhancing hepatic lesion. Liver capsule mildly nodular morphology. Perisplenic varices. Kidneys demonstrate no hydronephrosis. No enhancing renal lesion. Stomach nondistended. Small bowel loops are normal in caliber. Rectal/anal wall thickening. Large volume stool throughout the colon. Normal appendix. Abdominal aortic atherosclerotic disease. Bladder wall hyperemic with surrounding stranding. No free pelvic fluid. No inguinal lymphadenopathy. Ngdm-[id number] bilateral sacroiliac degenerative joint disease. Moderate thoracolumbar degenerative disc disease. IMPRESSION: Large volume stool throughout the colon. Rectal/ anal wall thickening. Correlate for proctocolitis. Small bilateral pleural effusions, [id number]-[id number]-right bibasilar atelectasis/ consolidation. Bladder wall hyperemia with surrounding stranding which could be secondary to cystitis. Liver capsule nodular morphology may represent cirrhosis. There are perisplenic varices. Other findings as described.
[2025-04-23] MEDS: magnesium citrate 296ml oral solution PO ONE (10:43)
[2025-04-23] MEDS ORDERED: magnesium Cl slow-release 64mg tablet PO PRN (11:30)
[2025-04-23] MEDS ORDERED: mag hydrox/Alum hydrox/simeth 30ml oral suspension PO PRN (11:30)
[2025-04-23] MEDS ORDERED: magnesium hydroxide 30ml (MOM) UD suspension PO PRN (11:30)
[2025-04-23] MEDS ORDERED: potassium Cl 20 mEq SR tablet PO PRN ×2 (11:30)
[2025-04-23] MEDS ORDERED: magnesium sulf-water 4G/100mL 100 ML IV PRN (11:30)
[2025-04-23] MEDS ORDERED: potassium Cl 40MEQ/1/2NS 520ml 520 ML IV PRN (11:30)
[2025-04-23] MEDS ORDERED: magnesium sulf-water 2g/50mL 50 ML IV PRN (11:30)
[2025-04-23] MEDS: ciprofloxacin lact 400MG/200ML 200 ML IV SCH (12:20)
[2025-04-23] MEDS: mineral oil 133ml enema RC SCH (12:20)
[2025-04-23 12:26] LABS: APTT 30 SECONDS (22-32); INR 1.2 INR
[2025-04-23] MEDS ORDERED: docusate sodium 100mg/10ml UD cup PO SCH (12:30)
[2025-04-23] MEDS ORDERED: bisacodyl 10mg suppository rectal RC SCH (12:30)
[2025-04-23] MEDS: bisacodyl 10mg suppository rectal RC SCH (12:40)
[2025-04-23 12:41] LABS: CREATININE 0.83 MG/DL (0.40-0.90); PHOSPHORUS 4.2 MG/DL (2.3-4.5); PRO BRAIN NATRIURETIC PEPTIDE 885 PG/ML (0-450); eCRCL 56 ML/MIN; eGFR 66 ML/MIN
[2025-04-23 12:49] LABS: TOTAL CARBON DIOXIDE 40.3 MMOL/L (24-32)
--- NOTE | 2025-04-23 13:12 | HISTORY AND PHYSICAL-Residence ---
History & Physical Providers to CC Resident Creating Document: ALLAN GUERIN, RES ~ History of Present Illness Primary Medical Doctor: Dr. wong Reason for Admit\Complaint: obstipation/ proctocolitis History of Present Illness 79-year-old female with history of atrial fibrillation, LESLIE, morbid obesity, hypothyroidism, hypertension, hyperlipidemia, hypothyroidism, HFpEF, COPD, type 2 DM presented to the ED from [facility] acute care with complaints of constipation and abdominal pain. She states that her last bowel movement was around 7 days ago and she feels that she has not been passing gas. She denies nausea and vomiting. She has decreased appetite and has 1 meal a day. She states that she has tried laxatives and enemas but nothing seems to work. She denies abdominal pain at the moment and does not recall when she had it. According to previous medical records, she was here in the ER on April 21 for constipation, and she had a bowel movement while waiting in the emergency department. I called the and he stated that she was in pain all night and he described it as intermittent diffuse abdominal pain with no radiation which started around 2 days ago. She also reports pain in rectal area but does not remember since when. She denies melena, hematochezia and hematemesis. She and her does not recall when her last colonoscopy was. She reports having burning micturition but denies fever and chills. She denies chest pain, palpitations, shortness of breath, falls. Her baseline oxygen is 2 L at home for COPD. She lives at [facility] care She states that she uses a walker but her says that she is bedridden She states that she does not have a primary care doctor Allergies: Coded Allergies: morphine (Unverified Allergy, Severe, 04/21/25) codeine (Verified Allergy, Unknown, 04/21/25) cortisone (Unverified Allergy, Unknown, 04/21/25) PT HAS RECEIVED METHYLPREDNISOLONE IN PAST, 2023 Home Medications Home Medications Active Reported Eliquis (Apixaban) 5 Mg Tablet 1 Tab PO Q12H Elavil* (Amitriptyline HCl) 50 Mg Tablet 1 Tab PO HS Pantoprazole Sodium 40 Mg Tablet.dr 1 Tab PO DAILY Atorvastatin Calcium 20 Mg Tablet 1 Tab PO DAILY Diltiazem HCl 60 Mg Tablet 1 Tab PO BID Levothyroxine Sodium 100 Mcg Tablet 1 Tab PO DAILY Fluoxetine Hcl (Fluoxetine HCl) 10 Mg Capsule DAILY Metformin HCl 500 Mg Tablet 1 Tab PO BID Jardiance (Empagliflozin) 10 Mg Tablet 1 Tab PO DAILY Carvedilol 3.125 Mg Tablet 1 Tab PO BID Metoprolol Tartrate 25 Mg Tablet 1 Tab PO BID Metoprolol Tartrate 100 Mg Tablet 1 Tab PO BID Lasix (Furosemide) 40 Mg Tablet 20 Mg PO BID 30 Days Zinc-220 (Zinc Sulfate) 50 Mg Zinc (220 Mg) Capsule 1 Cap PO DAILY Magnesium (Magnesium Oxide) 400 Mg Magnesium Capsule 400 Mg PO DAILY Calcium Carbonate 400 Mg Calcium (1000 Mg) Tab.chew 1 Tab PO Q4H PRN Breo Ellipta 200-25 Mcg INH (Fluticasone/Vilanterol) 200 Mcg-25 Mcg/Dose Blst.w.dev 1 Puffs INH DAILY Co Q-10 (Ubidecarenone) 300 Mg Capsule 1 Cap PO DAILY 30 Days Vitamin D (Cholecalciferol) 2,000 Unit Tablet 1 Tab PO DAILY 30 Days Vitamin C* (Ascorbic Acid) 500 Mg Tablet 4 Tab PO DAILY B Complex (Vitamin B Complex) 1 Each Tablet 1 Tab PO DAILY Klor-Con (Potassium Chloride) 10 Meq Tab.prt.sr 20 Meq PO DAILY Eliquis (Apixaban) 5 Mg Tablet 1 Tab PO BID Atarax* (Hydroxyzine HCl) 25 Mg Tablet 1 Tab PO HS Past Medical History Past Medical History Atrial fibrillation on Eliquis LESLIE, uses CPAP at home COPD, with chronic respiratory failure on 2 L oxygen at home Morbid obesity Hypertension Hyperlipidemia Hypothyroidism HFrEF Chronic hypoxemic respiratory failure UTI Type 2 diabetes mellitus Past Surgical History Surgical History Comment Right Knee replacement Shoulder surgery Mastectomy Cholecystectomy Family History Family History: FH: heart disease FATHER, Name: ran Clark , , Age: 50's - 60, Cause: Motor vehicle accident (victim), Not a twin FH: lupus Daughter Past Social History Social History Comment She quit smoking more than 1 year ago, she is unable to tell how many cigarettes she was smoking She denies alcohol and recreational drug use She lives at [facility] She states that she uses a walker but her says that she is bedridden She states that she does not have a primary care doctor Smoking: Quit greater than 1 year Alcohol Use: None Drug Use: None Lives In: Assisted Care Occupation: retired ROS ROS Constitutional: No fever, chills, dizziness, weight gain or loss Eyes: No pain, erythema, discharge, blurring of vision ENT: No sore throat, epistaxis, tinnitus Cardiovascular:No chest pain, palpitations, syncope, lower extremity edema, paroxysmal nocturnal dyspnea Respiratory: No worsening shortness of breath, No cough, No hemoptysis. Gastrointestinal: Reports Abdominal pain and constipation, reports decreased appetite, No vomiting,nausea,diarrhea. No hematemesis or melena. Genitourinary: Reports burning micturition Musculoskeletal: No Swelling, pain in bilateral lower legs. Integumentary: No change in skin, hair, nails. No swelling, bruising, abrasions Neurologic: No weakness,No headache, neck pain, numbness or tingling of the extremities, Psychiatric: No delusions, depression, loss of interest in normal activity or change in sleep pattern, hallucinations, suicidal ideations Endocrine: No fatigue, no weakness. polydipsia, polyuria, change in appetite, heat or cold intolerance, sweating, dry skin Hematological: No bleeding, petechiae, bruising Allergies: No asthma or urticaria Constitutional: Denies: fever Gastrointestinal: Reports: abdomen distended, abdominal pain, constipated Exam Vitals: Vital Signs Date Time Temp Pulse Resp B/P (MAP) Pulse Ox O2 Delivery O2 Flow Rate FiO2 04/23/25 13:00 97.8 108 19 104/60 (75) 98 3.5 General: Awake , alert, and oriented x4, resting comfortably in the bed, in no acute distress HEENT: Atraumatic, normocephalic, EOMI, anicteric sclera ; pale conjunctiva, dry mucous membranes Neck: Trachea midline. Supple, full range of motion, no JVD Cardiac: Tachycardic, regular rhythm with no murmurs all over the precordium. Respiratory: Equal breath sounds bilaterally, no tachypnea, no wheezing ,rub or rales, Chest wall is symmetric and without deformity. Gastrointestinal: Abdomen distended, soft, tender in left lower quadrant on deep palpation, normal bowel sounds, no masses Musculoskeletal: No pedal edema, no cyanosis Neurological: Speech is clear, alert, and oriented x 4. No motor or sensory deficit, deep tendon reflexes normal, cerebellar intact. Cranial nerves II-XII intact. Skin: Warm and dry Diagnostic Data Last Recorded Lab Results: 04/23/25 0128 04/23/25 1149 Diagnostic Data: Laboratory Tests Test 04/23/25 11:49 Prothrombin Time 12.1 SECONDS (9.0-12.0) H INR International Normalized Ratio 1.2 INR Activated Partial Thromboplast Time 30 SECONDS (22-32) Coagulation Comments Advance Care Planning Advanced Care plannin - 30 Minutes (full code) Additional Plan Obstipation Proctocolitis Last bowel movement was 7 days ago, according to the patient According to previous medical records, she was here in the ER and had a bowel movement 2 days ago on April 21 Bowel sounds heard No nausea or vomiting WBC is normal Abdomen x-ray shows nonobstructive bowel gas pattern with large stool burden Abdomen CT shows large volume stool throughout the colon with rectal/anal wall thickening suggestive of proctocolitis Liver capsule nodular morphology which suggests cirrhosis and perisplenic varices Potassium is normal Sodium is elevated-146, which is chronic from her previous admission in Mar 2025 Liver enzymes are normal Plan: Miralax 17 g h.s, Metamusil 5.8 gm hs and Dulcolax suppository 10 mg b.i.d. Started Lactulose 20 g q.6h Mineral oil enema, if patient does not have bowel movement, we will give soap suds enema Started IV ciprofloxacin 400 mg q.12h and IV metronidazole 500 mg q.12h, as abdomen CT suggests proctocolitis Follow up procalcitonin and lactic acid Follow up KUB tomorrow Possible UTI Patient complains of burning micturition Follow up urinalysis SIRS criteria met WBC is normal Follow up procalcitonin and lactic acid Previous urine cultures in February 2025 grew Klebsiella, August and September 2024 grew MRSA Will plan to start IV vancomycin if urinalysis positive for UTI NS at 70 mL/hour Abdomen CT shows bladder wall hyperemia with surrounding stranding which could be secondary to cystitis COPD, not in acute exacerbation Chronic respiratory failure secondary to COPD Baseline is 2 L oxygen at home Patient is saturating well on 2 L O2 Imaging shows small bilateral pleural effusions, left greater than right with bibasilar atelectasis/consolidation, which is unchanged from previous chest x- ray on March 12, 2025 WBC is normal Monitor vitals Atrial fibrillation with RVR Patient was given one time dose of metoprolol tartrate 25 mg We will continue her home medications metoprolol tartrate 25 mg BID and Cardizem 60 mg BID after med reconciliation Patient is on Eliquis at home, we will continue after med reconciliation Follow up EKG and continue telemetry monitoring Obstructive sleep apnea Continue CPAP Obesity BMI- 29.5 kg/m2 Type 2 diabetes mellitus On 75 gm carb controlled diet Monitor glucose on Hypoglycemia protocol Hypertension Blood pressure is on the soft side Patient takes carvedilol 3.125 mg b.i.d.and metoprolol tartrate 25 mg b.i.d. at home, we will continue after med reconciliation Hyperlipidemia Follow up lipid panel We will continue home medication atorvastatin 20 mg after med reconciliation Hypothyroidism Follow up TSH Continue home medication levothyroxine 100 mcg after med reconciliation HFrEF, not in exacerbation BNP is mildly elevated- 885 Previous echo in November 2024 shows LVEF of 50%, mild left ventricle concentric hypertrophy, RVSP of 58 mmHg with moderately to severely dilated right ventricle, dilated left atrium and right atrium with mild mitral and tricuspid regurgitation We will continue Lasix 20 mg b.i.d. after med reconciliation with strict I's and o's # Pending med reconciliation I spent a total of 18 minutes reviewing various resuscitative measures/ACP with the patient. The patient decided to be full code. Code status: Full code DVT prophylaxis: SCD, we will continue Eliquis after med reconciliation Pain management: Acetaminophen p.r.n. Diet/nutrition: 75 g carb controlled diet Prognosis: Guarded Disposition: Follow up urinalysis, continue IV antibiotics, monitor bowel movements, PT eval and DC plan Resident MD attestation: The patient note has been reviewed and supervised by senior residents PGY-2/ PGY-3. Patient was seen, examined and discussed with attending physician, Dr. Inez Guerin MD Internal Medicine resident, PGY-1 I spent a total of 17 minutes on reviewing various resuscitative measures/ ACP with the patient at the time of admission. The patient has decided on a full code status Date of Service: Apr 23, 2025 Billing Provider: FRANKY VILLATORO DO Common Visit Codes: 90454-OANCVDU INP/OBS CARE (HIGH) Secondary Visit Codes: 57676-FEYDIUXT CARE PLAN 30 MINUTES ALLAN GUERIN, RES Apr 23, 2025 13:12 FRANKY VILLATORO DO Apr 23, 2025 14:50
--- NOTE | 2025-04-23 13:32 | ELECTROCARDIOGRAPH REPORT ---
[facility] Test Date: 2025-04-23 Test Time: 13:29:43 Pat Name: CIPRIANO IRELAND Department: [facility]-ED HOLD Patient ID: [id number] Room: ORTHO 4007 Gender: F Checkout Operator: : [id number] Requested By: ALLAN GUERIN Order Number: [id number] Reading MD: Dr. PETE Caldwell Measurements Intervals [place] Rate: 107 P: 0 OR: 0 QRS: -27 QRSD: 91 T: 205 QT: 383 QTc: 511 Interpretive Statements Atrial fibrillation Borderline left axis deviation Repol abnrm suggests ischemia, anterolateral Prolonged QT interval Electronically Signed On 04-25-2025 12:53:[address] PETE Caldwell Please click the below link to view image of tracing.
[2025-04-23] MEDS: normal saline 1000ml 1,000 ML IV SCH (13:33)
[2025-04-23] MEDS: lactulose 20gm/30ml cup PO SCH (13:38)
[2025-04-23] MEDS: metroNIDAZOLE-Flagyl 500mg/NS 100 ML IV SCH (13:38)
[2025-04-23] MEDS ORDERED: dextrose 50%-water 50ml dispensing syringe IV PRN ×2 (14:20)
[2025-04-23] MEDS ORDERED: glucagon, human recombinant 1mg kit SUBCUT PRN (14:20)
[2025-04-23] MEDS ORDERED: DEXTROSE 15 GM of carb/4 tabs (each vial/BOTTLE has 4 tablets) PO PRN ×2 (14:20)
[2025-04-23 14:40] VITALS: BP 118/66; PULSE 116; RESP 18; TEMP 98.1; O2SAT 98
[2025-04-23] MEDS: vancomycin/NS 1 GM ADD-VANTAGE 250 ML IV SCH (16:12)
[2025-04-23] MEDS: lactobacillus rhamnosus 10,000 MMU CELLS/CAPSULE PO SCH (16:12)
[2025-04-23 16:36] VITALS: RESP 16; O2SAT 96
[2025-04-23 17:29] LABS: LACTIC SEPSIS 1.2 MMOL/L (0.4-2.0)
[2025-04-23 17:47] LABS: LEUKOCYTE ESTERASE ,URINE NEGATIVE (Neg); NITRITES, URINE NEGATIVE (Neg); OCCULT BLOOD,URINE NEGATIVE (Neg)
[2025-04-23 17:53] LABS: UA COLLECTION TYPE CLN CATCH MIDSTREAM
[2025-04-23 18:30] VITALS: BP 105/65; PULSE 100; RESP 16; TEMP 97.7; O2SAT 96
[2025-04-23] MEDS: K and/or MAG REPLACEMENT MC SCH (20:00)
[2025-04-23] MEDS ORDERED: docusate sod 100mg capsule PO SCH (20:00)
[2025-04-23] MEDS: polyethylene glycol 3350 17gm powd pack PO SCH (21:02)
[2025-04-23] MEDS: psyllium seed 5.8 gm packet (sugar-free) PO SCH (21:02)
[2025-04-23] MEDS: diltiazem 30mg tablet PO SCH (21:03)
[2025-04-23 22:00] VITALS: BP 111/48; PULSE 97; RESP 16; TEMP 98.9; O2SAT 97
[2025-04-23 23:29] VITALS: RESP 20; O2SAT 94
[2025-04-24] VITALS (8 sets, daily range): BP systolic 98–126; BP diastolic 44–76; PULSE 86–112; RESP 16–20; TEMP 97.8–99; O2SAT 92–98
[2025-04-24 05:45] LABS: MEAN PLATELET VOLUME 8.7 FL (7.4-10.4); RED CELL DISTRIBUTION WIDTH 16.3 % (11.5-14.5)
--- NOTE | 2025-04-24 06:00 | RADIOLOGY REPORT ---
MEDICAL RECORDS NUMBER: [id number] PROCEDURE: DI ABDOMEN,SINGLE VIEW(KUB) DATE: 04/24/2025 05:32 AM HISTORY: stool burden Views: One COMPARISON: DI ABDOMEN,SINGLE VIEW(KUB) on DOS: 04/23/25 FINDINGS: The bowel gas pattern appears unremarkable. A very large amount amount of stool is noted. No free air is seen. The skeletal structures appear unremarkable. IMPRESSION: 1. Very large amount of stool is noted. Similar to previous.
[2025-04-24 06:09] LABS: CHOL/HDL RATIO 3.0 (0.00-4.99); CREATININE 0.60 MG/DL (0.40-0.90); LDL CHOLESTEROL 62 MG/DL (50-100); TOTAL CARBON DIOXIDE 39.1 MMOL/L (24-32); eCRCL 78 ML/MIN; eGFR > 90 ML/MIN
[2025-04-24] MEDS: FLUTICASONE IH SCH (08:00)
[2025-04-24] MEDS ORDERED: non-formulary drug (Vitamin B Complex (B Complex) 1 TAB) PO SCH (08:00)
[2025-04-24] MEDS ORDERED: POTASSIUM CHLORIDE 20 MEQ PO SCH (08:00)
[2025-04-24] MEDS: VILANTEROL IH SCH (08:00)
[2025-04-24] MEDS ORDERED: non-formulary drug (Ubidecarenone (Co Q-10) 1 CAP) PO SCH (08:00)
[2025-04-24] MEDS: magnesium citrate 296ml oral solution PO ONE (10:23)
[2025-04-24] MEDS: lactulose 20gm/30ml cup PO SCH (10:25)
[2025-04-24] MEDS: zinc sulfate 220mg capsule PO SCH (10:27)
[2025-04-24] MEDS: pantoprazole 40mg Tablet.DR PO SCH (10:30)
[2025-04-24] MEDS: cholecalciferol (vitamin D3) 1,000 unit (25mcg) tablet PO SCH (10:30)
[2025-04-24] MEDS: ondansetron/PF 4mg/2ml inj IV PRN (10:31)
[2025-04-24] MEDS: levoTHYROXINE 100mcg tablet PO SCH (10:31)
[2025-04-24] MEDS: EMPAGLIFLOZIN 10 MG TABLET PO SCH (10:31)
--- NOTE | 2025-04-24 14:19 | PROGRESS NOTE- Residence ---
Progress Note - Resident Providers to CC Resident Creating Document: ALLAN GUERIN RES ~ Antibiotic Timeout Antibiotic Ordered?: Yes Subjective Patient was seen and examined bedside. She is passing flatus and she had a small bowel movement today in the a.m. She reports mild nausea. She denies abdominal pain, vomiting, fever, chills. She has been tolerating oral diet. She is alert and oriented. Objective Vital Signs Date Time Temp Pulse Resp B/P (MAP) Pulse Ox O2 Delivery O2 Flow Rate FiO2 04/24/25 10:31 90 04/24/25 10:28 98.0 110/61 (77) 98 Nasal Cannula 2.0 04/24/25 08:47 18 28 Result Diagram: 04/24/25 0501 04/24/25 0501 Awake , alert, and oriented x4, resting comfortably in the bed, in no acute distress HEENT: Atraumatic, normocephalic, EOMI, anicteric sclera ; pink conjunctiva, dry mucous membranes Neck: Trachea midline. Supple, full range of motion, no JVD Cardiac: Regular rhythm, regular rate with no murmurs all over the precordium. Respiratory: Equal breath sounds bilaterally, no tachypnea, no wheezing ,rub or rales, Chest wall is symmetric and without deformity. Gastrointestinal: Abdomen distended, soft, mild tenderness in left lower quadrant on deep palpation, no guarding or rigidity, normal bowel sounds, no masses Musculoskeletal: No pedal edema, no cyanosis Neurological: Speech is clear, alert, and oriented x 4. No motor or sensory deficit, deep tendon reflexes normal, cerebellar intact. Cranial nerves II-XII intact. Skin: Warm and dry Coagulation Studies Laboratory Tests Test 04/23/25 11:49 Prothrombin Time 12.1 SECONDS (9.0-12.0) H INR International Normalized Ratio 1.2 INR Activated Partial Thromboplast Time 30 SECONDS (22-32) Coagulation Comments Assessment Assessment 79-year-old female with history of AFib, LESLIE, morbid obesity, hypothyroidism, HFpEF, COPD and type 2 diabetes mellitus admitted for management of constipation. Plan Plan Constipation with large stool burden Proctocolitis Patient is passing flatus and had a small bowel movement today in the a.m. Bowel sounds heard Patient has mild nausea, No vomiting She is tolerating oral diet WBC is normal Ammonia is elevated-85, patient is alert and oriented Liver function tests are normal Abdomen CT showed large volume stool throughout the colon with rectal/anal wall thickening suggestive of proctocolitis Liver capsule nodular morphology which suggests cirrhosis and perisplenic varices Abdomen X ray shows very large amount of stool, similar to yesterday Plan: Increased Lactulose 20 gm to q.4h Mineral oil enema Continue Miralax 17 g h.s, Metamusil 5.8 gm hs and Dulcolax suppository 10 mg b.i.d Follow up ammonia Continue IV ciprofloxacin 400 mg q.12h and IV metronidazole 500 mg q.12h, as abdomen CT suggests proctocolitis History of UTI Urinalysis is negative for UTI WBC is normal Previous urine cultures in February 2025 grew Klebsiella, August and September 2024 grew MRSA, hence patient is in isolation Abdomen CT shows bladder wall hyperemia with surrounding stranding which could be secondary to cystitis COPD, not in acute exacerbation Chronic respiratory failure secondary to COPD Baseline is 2 L oxygen at home Patient is saturating well on 2 L O2 Imaging shows small bilateral pleural effusions, left greater than right with bibasilar atelectasis/consolidation, which is unchanged from previous chest x- ray on March 12, 2025 WBC is normal Atrial fibrillation, rate controlled Reduced dosage of metoprolol tartrate to 25 mg BID and continued Cardizem 60 mg BID Continue Eliquis 5 mg BID Obstructive sleep apnea Continue CPAP Obesity BMI- 29.5 kg/m2 Nutrition consult placed Type 2 diabetes mellitus On 75 gm carb controlled diet Monitor glucose on Hypoglycemia protocol Hypertension Blood pressure is on the soft side Reduced dosage of metoprolol tartrate to 25 mg BID Hyperlipidemia ASCVD score unable to calculate due to age LDL is 62 Triglycerides are elevated- 160 Continued home medication atorvastatin 20 mg Recommend outpatient follow up and encourage fish oil supplements Hypothyroidism TSH is elevated-20.37 Free T4 is normal Continue home medication levothyroxine 100 mcg HFrEF, not in exacerbation BNP is mildly elevated- 885 Previous echo in November 2024 shows LVEF of 50%, mild left ventricle concentric hypertrophy, RVSP of 58 mmHg with moderately to severely dilated right ventricle, dilated left atrium and right atrium with mild mitral and tricuspid regurgitation Held home medication Lasix 20 mg b.i.d as blood pressure is soft Code status: Full code DVT prophylaxis: Eliquis Pain management: Acetaminophen p.r.n. Diet/nutrition: Carb controlled diet Prognosis: Guarded Disposition: Follow up ammonia and bowel movements, PT eval and DC plan Resident MD attestation: The patient note has been reviewed and supervised by senior residents PGY-2/ PGY-3. Patient was seen, examined and discussed with attending physician, Dr. Inez Guerin MD Internal Medicine resident, PGY-1 Date of Service: Apr 24, 2025 Billing Provider: FRANKY VILLATORO DO Common Visit Codes: [id number] INP/OBS CARE(HIGH) ALLAN GUERIN, RES Apr 24, 2025 14:19 FRANKY VILLATORO DO Apr 24, 2025 15:19
[2025-04-25] VITALS (12 sets, daily range): BP systolic 99–108; BP diastolic 51–62; PULSE 87–111; RESP 12–23; TEMP 97.1–98.5; O2SAT 93–98
[2025-04-25] MEDS: VANCOMYCIN LEVEL IV ONE (02:30)
[2025-04-25 05:45] LABS: MEAN PLATELET VOLUME 8.6 FL (7.4-10.4); RED CELL DISTRIBUTION WIDTH 15.9 % (11.5-14.5)
[2025-04-25 05:55] LABS: CREATININE 0.78 MG/DL (0.40-0.90); TOTAL CARBON DIOXIDE 38.4 MMOL/L (24-32); eCRCL 60 ML/MIN; eGFR 71 ML/MIN
[2025-04-25] MEDS ORDERED: LIDOcaine 2% Viscous 15ml cup ONE (08:00)
[2025-04-25] MEDS ORDERED: simethicone 40mg/0.6ml oral drops 15ml ONE (08:00)
[2025-04-25] MEDS: albuterol 2.5 MG/3 ML nebule NEB ONE (08:05)
[2025-04-25] MEDS ORDERED: calcium chloride 100 MG/1 ML inj IV ONE (08:05)
[2025-04-25] MEDS: sodium polystyrene sulfonate 15gm/60ml oral suspension PO ONE ×3 (09:50→11:34)
[2025-04-25] MEDS: dextrose 50%-water 50ml dispensing syringe IV ONE (10:03)
[2025-04-25] MEDS: insulin regular, human 10 units/0.1 ml syringe IV ONE (10:07)
[2025-04-25] MEDS: CALCIUM GLUC 1gm/50ml NACL,iso 50 ML IV STA ×2 (11:37→11:38)
--- NOTE | 2025-04-25 11:57 | ELECTROCARDIOGRAPH REPORT ---
[facility] Test Date: 2025-04-25 Test Time: 08:23:58 Pat Name: CIPRIANO IRELAND Department: ORTHO/NEURO Room: ORTHO [facility] A Gender: F Gang Vibrator Operator: : 1945 Requested By: FRANKY VILLATORO Order Number: [id number] Reading MD: Dr. PETE Caldwell Measurements Intervals [place] Rate: 105 P: 0 [place]: 0 QRS: -18 QRSD: 98 T: 77 QT: 342 QTc: 453 Interpretive Statements Atrial fibrillation Borderline left axis deviation Consider anterior infarct Electronically Signed On 04-25-2025 12:52:[address] PETE Caldwell Please click the below link to view image of tracing.
--- NOTE | 2025-04-25 12:52 | PROGRESS NOTE- Residence ---
Progress Note - Resident Providers to CC Resident Creating Document: LISANDRO OWEN RES CC: ERASMO GUSTAFSON MD ~ Antibiotic Timeout Antibiotic Ordered?: Yes MRSA Education MRSA Education Provided to pt: Yes Subjective Patient was seen and examined bedside. She is passing flatus and she had a small bowel movement today in the a.m. significant decline loss of consciousness noted compared to yesterday, patient also appears extremely drowsy Objective Vital Signs Date Time Temp Pulse Resp B/P (MAP) Pulse Ox O2 Delivery O2 Flow Rate FiO2 04/25/25 10:17 100 04/25/25 09:48 97.1 16 107/54 (71) 96 Room Air 04/25/25 03:36 35 04/24/25 22:00 2.0 Result Diagram: 04/25/25 0508 04/25/25 0945 General: Patient is drowsy, awake only with deep sternal rub HEENT: Conjunctive are pink, sclerae clear, no icterus, pupil is equal in both sides, reactive to light, no ear discharge, no pharyngeal erythema or an edema. Neck: Supple, no JVD, no lymphadenopathy and thyromegaly. Chest: Equal air entry on both lungs, no additional sounds no rhonchi no wheezing at the moment. Cardiovascular: S1-S2 heard, irregular rhythm; Abdomen: No visible peristalsis, Bowel sounds present on auscultation, soft, no tenderness, no guarding, no rigidity; abdomen appears distended Extremities: No obvious deformities, no pitting edema bilaterally, capillary refill intact, peripheral pulsations are intact on both sides;age related bruises noted on left forearm,chronic venous stasis noted on left lower extremity Neurologic: Could not complete examination as patient is extremely drowsy Musculoskeletal: No joint swelling, deformities, inflammations, and no scoliosis and back tenderness Skin: Warm and dry. Dry oral mucosa. Coagulation Studies Laboratory Tests Test 04/23/25 11:49 Prothrombin Time 12.1 SECONDS (9.0-12.0) H INR International Normalized Ratio 1.2 INR Activated Partial Thromboplast Time 30 SECONDS (22-32) Coagulation Comments Advance Care Planning Advanced Care plannin - 30 Minutes Assessment Assessment 79-year-old female with history of AFib, LESLIE, morbid obesity, hypothyroidism, HFpEF, COPD and type 2 diabetes mellitus admitted for management of constipation. Plan Plan Altered level of consciousness Secondary to constipation, proctocolitis, hyperammonemia and liver cirrhosis Abdominal CT showed large volume stool throughout colon with rectal/anal wall thickening suggestive of proctocolitis; liver capsule normal morphology which suggests cirrhosis and perisplenic varices; Liver enzymes are within normal range, ammonia elevated at 78 Patient had a large bowel movement yesterday, bowel sounds heard Altered level of consciousness noted in the patient today, she is only alert and oriented to herself Plan Continue lactulose 20 g q.4h, DC mineral oil enema and Dulcolax suppository Continue Miralax 17 g h.s, Metamusil 5.8 gm hs Continue ciprofloxacin 500 mg q.12h and metronidazole 500 mg q.12h and Culturelle Initiated the patient on rifaximin 550 mg b.i.d. Held her home medication Atarax in view of her declining level of consciousness Hyperkalemia Patient's potassium was elevated at 5.9 Stat EKG did not show any hyperkalemia changes Initiated the patient on Lokelma 10 gm t.i.d, albuterol q.4h nebulization, Kayexalate 60 g oral suspension and a one time dose of calcium gluconate History of UTIs with positive cultures of Klebsiella, MRSA in the past Urinalysis is negative for UTI Previous urine cultures in February 2025 grew Klebsiella, August and September 2024 grew MRSA, hence patient is in isolation Abdomen CT shows bladder wall hyperemia with surrounding stranding which could be secondary to cystitis COPD, not in acute exacerbation Chronic respiratory failure secondary to COPD Patient is saturating well at her baseline oxygen of 2 L Imaging shows small bilateral pleural effusions, left greater than right with bibasilar atelectasis/consolidation, which is unchanged from previous chest x- ray on March 12, 2025 WBC is normal Atrial fibrillation, rate controlled Reduced dosage of metoprolol tartrate to 25 mg BID and continued Cardizem 60 mg BID Continue Eliquis 5 mg BID Type 2 diabetes mellitus Patient has had well-controlled HbA1c in the last 10 years, except one time it was elevated at 6.3 Likely patient does not have type 2 diabetes mellitus, does not take any medication for that Hypertension Blood pressure is on the soft side Reduced dosage of metoprolol tartrate to 25 mg BID Hyperlipidemia ASCVD score unable to calculate due to age LDL 62, triglycerides elevated at 160 Continued home medication atorvastatin 20 mg Recommend outpatient follow up and encourage fish oil supplements Hypothyroidism TSH is elevated-20.37 Free T4 is normal Increased patient's home medication levothyroxine to 125 mcg Recommend repeating TSH level after six weeks outpatient Heart failure with preserved ejection fraction, not in exacerbation BNP is mildly elevated- 885 Previous echo in November 2024 shows LVEF of 50%, mild left ventricle concentric hypertrophy, RVSP of 58 mmHg with moderately to severely dilated right ventricle, dilated left atrium and right atrium with mild mitral and tricuspid regurgitation Continue furosemide 40 mg b.i.d. Continue Jardiance 10 mg Obstructive sleep apnea Continue CPAP Obesity BMI- 29.5 kg/m2 Code status: Full code DVT prophylaxis: Eliquis Pain management: Acetaminophen p.r.n. Diet/nutrition: Carb controlled diet Prognosis: Guarded Disposition: Continue antibiotics, follow up with repeat potassium level. Patient will likely get discharged tomorrow once her mentation improves Resident attestation: The patient note has been reviewed and supervised by senior residents PGY-2/ PGY-3. Lisandro Owen MD Internal Medicine resident, PGY-1 Date of Service: Apr 25, 2025 Billing Provider: ERASMO GUSTAFSON MD, JAHNAVI, RES Apr 25, 2025 12:52
[2025-04-25] MEDS: rifaximin 550mg tablet PO SCH (13:10)
[2025-04-25] MEDS: SODIUM ZIRCONIUM CYCLOSILICATE 10 GM POWD.PACK PO SCH (13:12)
[2025-04-25] MEDS: albuterol 2.5 MG/3 ML nebule NEB SCH (16:58)
[2025-04-26] VITALS (13 sets, daily range): BP systolic 92–116; BP diastolic 50–67; PULSE 73–109; RESP 15–32; TEMP 98–98.8; O2SAT 91–98
[2025-04-26 06:52] LABS: MEAN PLATELET VOLUME 8.5 FL (7.4-10.4); RED CELL DISTRIBUTION WIDTH 16.1 % (11.5-14.5)
[2025-04-26 07:04] LABS: CREATININE 0.81 MG/DL (0.40-0.90); eCRCL 58 ML/MIN; eGFR 68 ML/MIN
[2025-04-26 07:24] LABS: TOTAL CARBON DIOXIDE 40.7 MMOL/L (24-32)
[2025-04-26] MEDS ORDERED: SODIUM ZIRCONIUM CYCLOSILICATE 10 GM POWD.PACK PO SCH (08:00)
[2025-04-26 10:00] LABS: ABG BASE EXCESS 15.5 mmol/L (-2.0-3.0); ABG HCO3 47.5 mmol/L (21.0-28.0); ABG OXYGEN SATURATION 98.2 % (94.0-98.0); ABG PCO2 (T) 123.8 mmHg (32.0-45.0); ABG PH (T) 7.203 (7.350-7.450); ABG PO2 (T) 114.8 mmHg (83.0-108.0); ALLEN'S TEST POSITIVE; FCOHb 1.4 % (0.5-1.5); FHHb 1.8 % (0.0-5.0); FIO2 32.0 mmHg/%; FLOW 3 L/min; FMetHb 0.3 % (0.0-1.5); FO2Hb 96.5 % (94.0-98.0); MODE NASAL CANNULA; PATIENT TEMPERATURE 37.1; TOTAL HEMOGLOBIN 10.8 G/dl (12.0-16.0)
[2025-04-26 11:26] LABS: ABG BASE EXCESS 13.0 mmol/L (-2.0-3.0); ABG HCO3 42.4 mmol/L (21.0-28.0); ABG OXYGEN SATURATION 94.1 % (94.0-98.0); ABG PCO2 (T) 88.8 mmHg (32.0-45.0); ABG PH (T) 7.297 (7.350-7.450); ABG PO2 (T) 66.8 mmHg (83.0-108.0); ALLEN'S TEST POSITIVE; FCOHb 1.6 % (0.5-1.5); FHHb 5.8 % (0.0-5.0); FIO2 28.0 mmHg/%; FMetHb 0.3 % (0.0-1.5); FO2Hb 92.3 % (94.0-98.0); MODE MASK - BIPAP; PATIENT TEMPERATURE 37.0; RESPIRATORY RATE 18 b/min; TOTAL HEMOGLOBIN 10.6 G/dl (12.0-16.0)
--- NOTE | 2025-04-26 12:43 | PROGRESS NOTE- Residence ---
Progress Note - Resident Providers to CC Resident Creating Document: LISANDRO OWEN RES CC: ERASMO GUSTAFSON MD ~ Antibiotic Timeout Antibiotic Ordered?: Yes Subjective Patient was seen and examined bedside. Patient continues to have weaning and waxing of consciousness. Her blood gas today showed respiratory acidosis with metabolic compensation, she was initiated on BiPAP. She required continuous BiPAP, patient was transferred to PCU. Objective Vital Signs Date Time Temp Pulse Resp B/P (MAP) Pulse Ox O2 Delivery O2 Flow Rate FiO2 04/26/25 10:09 104 24 93 28 24 04/26/25 07:15 Nasal Cannula 2.0 04/26/25 06:00 98.8 112/60 (77) Result Diagram: 04/26/2561204/26/25612 General: Patient was awake alert oriented to time place and person HEENT: Conjunctive are pink, sclerae clear, no icterus, pupil is equal in both sides, reactive to light, no ear discharge, no pharyngeal erythema or an edema. Neck: Supple, no JVD, no lymphadenopathy and thyromegaly. Chest: Equal air entry on both lungs, decreased breath sounds heard in bilateral basilar region, no additional sounds no rhonchi no wheezing at the moment. Cardiovascular: S1-S2 heard, irregular rhythm,ejection systolic murmur heard in aortic area Abdomen: No visible peristalsis, sluggish bowel sounds present on auscultation, soft, no tenderness, no guarding, no rigidity; abdomen appears distended Extremities: No obvious deformities, no pitting edema bilaterally, capillary refill intact, peripheral pulsations are intact on both sides;age related bruises noted on left forearm,chronic venous stasis noted on left lower extremity Neurologic: Mental status: alert and conscious, oriented to place, person and time, preserved memory, normal speech. Cranial nerves I-XII: Normal. Motor system: Preserved power, coordination, no evidenced involuntary movements, strength in upper extremities 4/5, strength in lower extremities 2/5 Sensory system: Preserved temperature, pain and vibration sensation. 2+ deep tendon reflexes in biceps, triceps, quadriceps. Negative Babinski. Cerebellar: No nystagmus, dysdiadochokinesia, normal [id number] testing. Musculoskeletal: No joint swelling, deformities, inflammations, and no scoliosis and back tenderness Skin: Warm and dry. Dry oral mucosa. Coagulation Studies Laboratory Tests Test 04/23/25 11:49 Prothrombin Time 12.1 SECONDS (9.0-12.0) H INR International Normalized Ratio 1.2 INR Activated Partial Thromboplast Time 30 SECONDS (22-32) Coagulation Comments Advance Care Planning Advanced Care plannin - 30 Minutes Assessment Assessment 79-year-old female with history of AFib, LESLIE, morbid obesity, hypothyroidism, HFpEF, COPD and type 2 diabetes mellitus admitted for management of constipation. 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 Held her home medication Atarax in view of her declining level of consciousness Acute on chronic type 2 respiratory failure Secondary to COPD Patient's blood gas showed: Respiratory acidosis with metabolic alkalosis compensation Patient was initiated on BiPAP Initiated the patient on Solu-Medrol 40 mg b.i.d. Continue breathing treatments DuoNeb q.4h scheduled and albuterol q.2h p.r.n. Already on antibiotics for her proctocolitis Acute on chronic congestive heart failure with preserved ejection fraction of 50% BNP is mildly elevated- 885 Previous echo in November 2024 shows LVEF of 50%, mild left ventricle concentric hypertrophy, RVSP of 58 mmHg with moderately to severely dilated right ventricle, dilated left atrium and right atrium with mild mitral and tricuspid regurgitation Chest x-ray was done which showed Infiltrates in the mid to lower lungs and bilateral pleural effusions likely due to CHF. Cardiomegaly and atherosclerotic vascular disease. Pulmonary arterial hypertension. Plan Gave the patient one time 80 mg Lasix, continue 40 mg Lasix b.i.d. Ordered repeat echocardiogram and proBNP, ordered a repeat chest x-ray tomorrow in the a.m. Continue Jardiance 10 mg Hyperkalemia, resolved Patient's potassium is within normal limits History of UTIs with positive cultures of Klebsiella, MRSA in the past Urinalysis is negative for UTI Previous urine cultures in February 2025 grew Klebsiella, August and September 2024 grew MRSA, hence patient is in isolation Abdomen CT shows bladder wall hyperemia with surrounding stranding which could be secondary to cystitis Atrial fibrillation, rate controlled Reduced dosage of metoprolol tartrate to 25 mg BID and continued Cardizem 60 mg BID Continue Eliquis 5 mg BID Anemia of chronic disease Patient's hemoglobin is at 9.5, MCV normal, RDW normal Ordered iron profile, reticulocyte count We will continue to monitor patient's hemoglobin Type 2 diabetes mellitus Patient has had well-controlled HbA1c in the last 10 years, except one time it was elevated at 6.3 Likely patient does not have type 2 diabetes mellitus, does not take any medication for that Hypertension Blood pressure is on the soft side Reduced dosage of metoprolol tartrate to 25 mg BID Hyperlipidemia ASCVD score unable to calculate due to age LDL 62, triglycerides elevated at 160 Continued home medication atorvastatin 20 mg Recommend outpatient follow up and encourage fish oil supplements Hypothyroidism TSH is elevated-20.37 Free T4 is normal Increased patient's home medication levothyroxine to 125 mcg Recommend repeating TSH level after six weeks outpatient Obstructive sleep apnea Continue CPAP Obesity BMI- 29.5 kg/m2 Code status: Full code DVT prophylaxis: Eliquis Pain management: Acetaminophen p.r.n. Diet/nutrition: Carb controlled diet Prognosis: Guarded Disposition: We will continue to monitor the patient, we will follow with repeat proBNP, echocardiogram and chest x-ray in a.m. Resident attestation: The patient note has been reviewed and supervised by senior residents PGY-2/ PGY-3. Lisandro Owen MD Internal Medicine resident, PGY-1 Date of Service: Apr 26, 2025 Billing Provider: ERASMO GUSTAFSON MD, JAHNAVI, RES Apr 26, 2025 12:43
[2025-04-26 13:21] LABS: ABG BASE EXCESS 12.9 mmol/L (-2.0-3.0); ABG HCO3 41.6 mmol/L (21.0-28.0); ABG OXYGEN SATURATION 95.1 % (94.0-98.0); ABG PCO2 (T) 82.5 mmHg (32.0-45.0); ABG PH (T) 7.321 (7.350-7.450); ABG PO2 (T) 77.4 mmHg (83.0-108.0); ALLEN'S TEST POSITIVE; FCOHb 1.1 % (0.5-1.5); FHHb 4.8 % (0.0-5.0); FIO2 28.0 mmHg/%; FMetHb 0.3 % (0.0-1.5); FO2Hb 93.8 % (94.0-98.0); MODE MASK - BIPAP; PATIENT TEMPERATURE 37.0; RESPIRATORY RATE 18 b/min; TOTAL HEMOGLOBIN 10.4 G/dl (12.0-16.0)
[2025-04-26 15:39] LABS: ABG BASE EXCESS 16.7 mmol/L (-2.0-3.0); ABG HCO3 44.5 mmol/L (21.0-28.0); ABG OXYGEN SATURATION 94.6 % (94.0-98.0); ABG PCO2 (T) 74.0 mmHg (32.0-45.0); ABG PH (T) 7.397 (7.350-7.450); ABG PO2 (T) 70.0 mmHg (83.0-108.0); ALLEN'S TEST POSITIVE; FCOHb 1.3 % (0.5-1.5); FHHb 5.3 % (0.0-5.0); FIO2 28.0 mmHg/%; FMetHb 0.0 % (0.0-1.5); FO2Hb 93.4 % (94.0-98.0); MODE MASK - BIPAP; PATIENT TEMPERATURE 37.0; RESPIRATORY RATE 18 b/min; TOTAL HEMOGLOBIN 10.8 G/dl (12.0-16.0)
--- NOTE | 2025-04-26 16:40 | RADIOLOGY REPORT ---
Indication: Constipation Technique: DI ABDOMEN,SINGLE VIEW(KUB)[id number] Comparison: None FINDINGS/IMPRESSION: Large volume stool throughout the colon. Cardiomegaly and Bibasilar pulmonary airspace opacities, pulmonary vascular congestion. Moderate bilateral pleural effusions. No evidence for free intraperitoneal air.
--- NOTE | 2025-04-26 16:44 | RADIOLOGY REPORT ---
EXAM: DI CHEST,SINGLE VIEW HISTORY: SOB COMPARISON: DI CHEST,SINGLE VIEW on DOS: 03/12/25, DI CHEST,SINGLE VIEW on DOS: 02/11/25, DI CHEST,SINGLE VIEW on DOS: 01/28/25, DI CHEST,SINGLE VIEW on DOS: 11/24/24, DI CHEST,SINGLE VIEW on DOS: 11/19/24, chest CT dated 11/24/2024 TECHNIQUE: Portable upright AP view of the chest was performed. FINDINGS: There are infiltrates and effusions in the bilateral mid to lower lungs. There is improved aeration of the left upper lobe compared with the previous chest x- ray. No pneumothorax. The aortic archis calcific. The central pulmonary arteries are ectatic. The heart is enlarged. IMPRESSION: 1. Infiltrates in the mid to lower lungs and bilateral pleural effusions likely due to CHF, less likely bilateral pneumonia. 2. Cardiomegaly and atherosclerotic vascular disease. 3. Pulmonary arterial hypertension.
[2025-04-26] MEDS: PERFLUTREN PROTEIN-A MICROSPHR (Optison) 0.22 MG/ML 3ML VIAL IV ONE (17:15)
[2025-04-26] MEDS: furosemide 10 MG/1 ML 10ml inj IV ONE (17:34)
[2025-04-26] MEDS ORDERED: albuterol 2.5 MG/3 ML nebule NEB PRN (18:05)
[2025-04-26 20:17] LABS: % IRON SATURATION 18 % (11-46)
[2025-04-26] MEDS: ipratropium/albuterol 3ml nebule NEB SCH (21:10)
[2025-04-26] MEDS: methylPREDNISolone sod succ/PF 40mg inj. IV SCH (21:10)
[2025-04-27] VITALS (25 sets, daily range): BP systolic 78–113; BP diastolic 39–69; PULSE 80–117; RESP 16–35; TEMP 96.3–98.1; O2SAT 88–99
[2025-04-27 07:54] LABS: MEAN PLATELET VOLUME 8.5 FL (7.4-10.4); RED CELL DISTRIBUTION WIDTH 15.6 % (11.5-14.5)
[2025-04-27 08:33] LABS: CREATININE 0.87 MG/DL (0.40-0.90); eCRCL 54 ML/MIN; eGFR 63 ML/MIN
[2025-04-27 08:35] LABS: ABG BASE EXCESS 19.6 mmol/L (-2.0-3.0); ABG HCO3 47.0 mmol/L (21.0-28.0); ABG OXYGEN SATURATION 95.9 % (94.0-98.0); ABG PCO2 (T) 70.1 mmHg (32.0-45.0); ABG PH (T) 7.443 (7.350-7.450); ABG PO2 (T) 76.5 mmHg (83.0-108.0); ALLEN'S TEST POSITIVE; FCOHb 0.9 % (0.5-1.5); FHHb 4.1 % (0.0-5.0); FIO2 28.0 mmHg/%; FLOW 2 L/min; FMetHb 0.3 % (0.0-1.5); FO2Hb 94.7 % (94.0-98.0); MODE NASAL CANNULA; PATIENT TEMPERATURE 36.6; TOTAL HEMOGLOBIN 10.6 G/dl (12.0-16.0)
--- NOTE | 2025-04-27 08:35 | RADIOLOGY REPORT ---
CHEST RADIOGRAPH Indication: CHF Technique: DI CHEST,SINGLE VIEW, ANGIO LINE PLACEMENT(PICC NURSE)[id number] Comparison: None FINDINGS/IMPRESSION: Large volume stool throughout the colon. Cardiomegaly and Bibasilar pulmonary airspace opacities, pulmonary vascular congestion. Moderate bilateral pleural effusions. No evidence for free intraperitoneal air. Comparison: DI CHEST,SINGLE VIEW on DOS: 04/26/25, DI CHEST,SINGLE VIEW on DOS: 03/12/25, DI CHEST,SINGLE VIEW on DOS: 02/11/25, DI CHEST,SINGLE VIEW on DOS: 01/28/25, DI CHEST,SINGLE VIEW on DOS: 11/24/24, DI ABDOMEN,SINGLE VIEW(KUB) on DOS: 04/26/25 FINDINGS: Large volume stool throughout the colon. Cardiomegaly and Bibasilar pulmonary airspace opacities, pulmonary vascular congestion. Moderate bilateral pleural effusions. No evidence for free intraperitoneal air. IMPRESSION: No interval change.
--- NOTE | 2025-04-27 08:35 | RADIOLOGY REPORT ---
CHEST RADIOGRAPH Indication: CHF Technique: DI CHEST,SINGLE VIEW, ANGIO LINE PLACEMENT(PICC NURSE)[id number] Comparison: None FINDINGS/IMPRESSION: Large volume stool throughout the colon. Cardiomegaly and Bibasilar pulmonary airspace opacities, pulmonary vascular congestion. Moderate bilateral pleural effusions. No evidence for free intraperitoneal air. Comparison: DI CHEST,SINGLE VIEW on DOS: 04/26/25, DI CHEST,SINGLE VIEW on DOS: 03/12/25, DI CHEST,SINGLE VIEW on DOS: 02/11/25, DI CHEST,SINGLE VIEW on DOS: 01/28/25, DI CHEST,SINGLE VIEW on DOS: 11/24/24, DI ABDOMEN,SINGLE VIEW(KUB) on DOS: 04/26/25 FINDINGS: Large volume stool throughout the colon. Cardiomegaly and Bibasilar pulmonary airspace opacities, pulmonary vascular congestion. Moderate bilateral pleural effusions. No evidence for free intraperitoneal air. IMPRESSION: No interval change.
[2025-04-27 08:54] LABS: TOTAL CARBON DIOXIDE 44.9 MMOL/L (24-32)
[2025-04-27] MEDS ORDERED: potassium Cl 40MEQ/1/2NS 520ml 520 ML IV PRN (09:30)
[2025-04-27] MEDS: potassium Cl 20 mEq SR tablet PO PRN (09:38)
[2025-04-27] MEDS ORDERED: ciprofloxacin 250mg tablet PO SCH (10:22)
[2025-04-27] MEDS: ciprofloxacin 250mg tablet PO SCH (10:35)
[2025-04-27] MEDS: lactobacillus rhamnosus 10,000 MMU CELLS/CAPSULE PO SCH (10:40)
[2025-04-27 11:24] LABS: LACTATE DEHYDROGENASE 266 U/L (81-234)
[2025-04-27] MEDS: mineral oil 133ml enema RC ONE (15:00)
[2025-04-27] MEDS: psyllium seed 5.8 gm packet (sugar-free) PO SCH (16:31)
[2025-04-27] MEDS: lactulose 20gm/30ml cup PO SCH (16:31)
--- NOTE | 2025-04-27 16:49 | PROGRESS NOTE- Residence ---
Progress Note - Resident Providers to CC Resident Creating Document: LISANDRO OWEN RES CC: ERASMO GUSTAFSON MD ~ Antibiotic Timeout Antibiotic Ordered?: Yes Subjective Patient was seen and examined bedside. Patient looks much better today, alert and oriented x4. Patient has been downgraded from her BiPAP on she is on her baseline oxygen of 2 L saturating well. However patient has not been having adequate bowel movements, we have made some changes to her bowel prep and care. In addition patient also had bilateral pleural effusion we have requested IR team for therapeutic and diagnostic thoracentesis Objective Vital Signs Date Time Temp Pulse Resp B/P (MAP) Pulse Ox O2 Delivery O2 Flow Rate FiO2 04/27/25 16:17 111 18 84/43 (57) 97 Nasal Cannula 2.0 04/27/25 15:00 97.8 04/27/25 11:11 28 Result Diagram: 04/27/25 0654 04/27/25 0654 General: Patient was awake alert oriented to time place and person HEENT: Conjunctive are pink, sclerae clear, no icterus, pupil is equal in both sides, reactive to light, no ear discharge, no pharyngeal erythema or an edema. Neck: Supple, no JVD, no lymphadenopathy and thyromegaly. Chest: Equal air entry on both lungs, decreased breath sounds heard in bilateral basilar region, no additional sounds no rhonchi no wheezing at the moment. Cardiovascular: S1-S2 heard, irregular rhythm,ejection systolic murmur heard in aortic area Abdomen: No visible peristalsis, sluggish bowel sounds present on auscultation, soft, no tenderness, no guarding, no rigidity; abdomen appears distended Extremities: No obvious deformities, no pitting edema bilaterally, capillary refill intact, peripheral pulsations are intact on both sides;age related bruises noted on left forearm,chronic venous stasis noted on left lower extremity Neurologic: Mental status: alert and conscious, oriented to place, person and time, preserved memory, normal speech. Cranial nerves I-XII: Normal. Motor system: Preserved power, coordination, no evidenced involuntary movements, strength in upper extremities 4/5, strength in lower extremities 2/5 Sensory system: Preserved temperature, pain and vibration sensation. 2+ deep tendon reflexes in biceps, triceps, quadriceps. Negative Babinski. Cerebellar: No nystagmus, dysdiadochokinesia, normal [id number] testing. Musculoskeletal: No joint swelling, deformities, inflammations, and no scoliosis and back tenderness Skin: Warm and dry. Dry oral mucosa. Coagulation Studies Laboratory Tests Test 04/23/25 11:49 Prothrombin Time 12.1 SECONDS (9.0-12.0) H INR International Normalized Ratio 1.2 INR Activated Partial Thromboplast Time 30 SECONDS (22-32) Coagulation Comments Advance Care Planning Advanced Care plannin - 30 Minutes Assessment Assessment 79-year-old female with history of AFib, LESLIE, morbid obesity, hypothyroidism, HFpEF, COPD and type 2 diabetes mellitus admitted for management of constipation. 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 initiated the patient on senna p.o. b.i.d. and Dulcolax p.o. 5 mg once daily Ordered one time dose of mineral oil enema Ordered repeat abdominal x-ray, results pending Continue ciprofloxacin 500 mg q.12h and metronidazole 500 mg q.12h and Culturelle Continue the patient on rifaximin 550 mg b.i.d. Held her home medication Atarax in view of her declining level of consciousness Acute on chronic type 2 respiratory failure Secondary to COPD Patient was initiated on BiPAP it was downgraded and patient is currently on minimal oxygen of 2 L nasal cannula Initiated the patient on Solu-Medrol 40 mg b.i.d. Continue breathing treatments DuoNeb q.4h scheduled and albuterol q.2h p.r.n. Already on antibiotics for her proctocolitis Acute on chronic congestive heart failure with normal ejection fraction of 50% Significant elevation proBNP from 800 to 3000 Previous echo in November 2024 shows LVEF of 50%, mild left ventricle concentric hypertrophy, RVSP of 58 mmHg Repeat echocardiogram done yesterday reported, EF of 65-70% Chest x-ray was done which showed Infiltrates in the mid to lower lungs and bilateral pleural effusions likely due to CHF. Cardiomegaly and atherosclerotic vascular disease. Pulmonary arterial hypertension. We consulted IR for thoracentesis of her bilateral lungs-ordered diagnostic and therapeutic thoracentesis Plan Decreased patient's Lasix to 20 mg b.i.d.. discontinued patient's medication Jardiance, as her EF has improved compared to her prior echocardiogram. Hypokalemia Mild decrease in potassium, 3.3 Replacing per protocol History of UTIs with positive cultures of Klebsiella, MRSA in the past Urinalysis is negative for UTI Previous urine cultures in February 2025 grew Klebsiella, August and September 2024 grew MRSA, hence patient is in isolation Abdomen CT shows bladder wall hyperemia with surrounding stranding which could be secondary to cystitis Atrial fibrillation, rate controlled Reduced dosage of metoprolol tartrate to 25 mg BID and continued Cardizem 60 mg BID Continue Eliquis 5 mg BID Anemia of chronic disease Patient's hemoglobin is at 9, MCV normal, RDW normal Patient's iron, TIBC is low, %saturation within normal limits, ferritin elevated Continue to monitor patient's hemoglobin Transfuse if hemoglobin drops below seven Type 2 diabetes mellitus Patient has had well-controlled HbA1c in the last 10 years, except one time it was elevated at 6.3 Likely patient does not have type 2 diabetes mellitus, does not take any medication for that Hypertension Blood pressure is on the soft side Reduced dosage of metoprolol tartrate to 25 mg BID Hyperlipidemia ASCVD score unable to calculate due to age LDL 62, triglycerides elevated at 160 Continued home medication atorvastatin 20 mg Recommend outpatient follow up and encourage fish oil supplements Hypothyroidism TSH is elevated-20.37 Free T4 is normal Increased patient's home medication levothyroxine to 125 mcg Recommend repeating TSH level after six weeks outpatient Obstructive sleep apnea Continue CPAP Obesity BMI- 29.5 kg/m2 Code status: Full code DVT prophylaxis: Eliquis Pain management: Acetaminophen p.r.n. Diet/nutrition: Carb controlled diet Prognosis: Guarded Disposition: We will continue to monitor the patient, awaiting thoracentesis results Resident attestation: The patient note has been reviewed and supervised by senior residents PGY-2/ PGY-3. Lisandro Owen MD Internal Medicine resident, PGY-1 Date of Service: Apr 27, 2025 Billing Provider: ERASMO GUSTAFSON MD, JAHNAVI, RES Apr 27, 2025 16:49
[2025-04-27 16:57] LABS: PLEURAL FLUID PH 7.541 (7.63-7.65)
[2025-04-27 16:58] LABS: BFSOURCE LEFT PLEURAL FLD
--- NOTE | 2025-04-27 17:27 | CARDIOLOGY REPORT ---
APPROVED REPORT EXAM: Comprehensive 2D, Doppler, and color-flow Echocardiogram. 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 Paulette MD Previous ECHO: 11/20/24, [facility], EF: 50; mod-sev RVE; sev LAE; mod ARIK; JAYLA: 1.51; GRAD: ; PKV: 2.78; m MR/TR 2D Dimensions IVSd 1.1 (0.7-1.1cm) LVDd 5.0 cm PWd 1.2 (0.7-1.1cm) IVSs 1.6 (0.8-1.2cm) LVDs 2.9 (2.5-4.0cm) PWs 1.9 (0.8-1.2cm) LVOT Diameter 2.13 (1.8-2.4cm) LVEF(%) 71.3 (>50%) Ao Asc Diam. 2.80 cm IVC 16.44 mm FS (%) 40.7 % SV 82.6 ml CO 7.9 L/min M-Mode Dimensions Left Atrium(MM) 4.93 (2.5-4.0cm) Aortic Root 3.30 (2.2-3.7cm) Aortic Cusp Exc 1.35 (1.5-2.0cm) MV EPSS 0.2 (<0.5cm) Aortic Valve AoV Peak Omari. 332.6 cm/s AoV VTI 61.2 cm AO Peak GR. 44.2 mmHg AO Mean GR. 27 mmHg LVOT VTI 19.21 cm LVOT Peak Omari. 114.0 cm/s JAYLA(VTI)/BSA 1.12 cm2/m2 JAYLA (VTI) 1.12 cm2 AV DI 0.31 % Tricuspid Valve TR P. Velocity 333 cm/s RAP ESTIMATE 10 mmHg TR Peak Gr. 44 mmHg RVSP 54 mmHg LEFT VENTRICLE Normal LV size and wall thickness. Overall systolic function is normal. Overall LVEF is 65-70%. RIGHT VENTRICLE Right ventricle appears mildly dilated with adequate function. ATRIA Left atrium is moderately dilated. AORTIC VALVE Trileaflet AV with moderate stenosis. JAYLA is measured at 1.12 cmsq. Peak / mean gradients of 44/ 27 mmHG. Peak velocity is measured at 3.33 m/sec. MITRAL VALVE Moderate mitral annular calcification without stenosis. Trace regurgitation. TRICUSPID VALVE The tricuspid valve is normal in structure with moderate regurgitation. PULMONIC VALVE Pulmonic valve is grossly normal in structure with physiologic insufficiency. GREAT VESSELS The aortic root is normal in size. The ascending aorta is normal in size. The IVC is normal in size and collapses >50% with inspiration. PERICARDIUM Normal pericardium. No effusion. Anterior epicardial fat pad is present. Other Information Study Quality: Fair with difficult apical views. Patient didn't tolerate exam well due to pain. Conclusion Overall LVEF is 65-70%. Normal LV size and wall thickness. Overall systolic function is normal. Right ventricle appears mildly dilated with adequate function. Trileaflet AV with moderate stenosis. JAYLA is measured at 1.12 cmsq. Peak / mean gradients of 44/ 27 mmHG. Peak velocity is measured at 3.33 m/sec. Moderate mitral annular calcification without stenosis. Trace regurgitation. The tricuspid valve is normal in structure with moderate regurgitation. Pulmonic valve is grossly normal in structure with physiologic insufficiency. Normal pericardium. No effusion. Anterior epicardial fat pad is present.
[2025-04-27 17:59] LABS: GLUCOSE,BODY FLUID 194 MG/DL; LDH,BODY FLUID 110 U/L; TOTAL PROTEIN,BODY FLUID 2.2 G/DL
--- NOTE | 2025-04-27 18:13 | PROGRESS NOTE ---
Progress Note - Angio Providers to CC ~ Angio Progress Note: S/P left thoracentesis with 600cc serosang/brennan fluid removed, samples taken. No immediate complications. Dictated. EBL zero. CANELO KIM MD Apr 27, 2025 18:13
--- NOTE | 2025-04-27 18:46 | RADIOLOGY REPORT ---
THORACENTESIS DIAGNOSTIC left Clinical information: Left pleural effusion PROCEDURE: Ultrasound Guided Left side Thoracentesis. PRE-PROCEDURE DIAGNOSIS: Left greater than right pleural effusions POST-PROCEDURE DIAGNOSIS: Predominantly left-sided pleural effusion. No significant fluid seen on the right Estimated Blood Loss none The nature, alternatives, and risks were discussed with the patient and informed consent was disclosed. All elements of maximal sterile barrier technique, hand hygiene, skin preparation, and a sterile ultrasound probe cover and gel were utilized. The patient was positioned upright and ultrasound was used to examine the posterior chest. An appropriate position was marked at the skin. After sterile preparation and draping, 1% Lidocaine 8 mL subcutaneous was administered. The left pleural space was entered with a 5 [place] Yueh catheter and approximately 600 mL of serosanguineous/brennan fluid was removed. Samples were sent to the lab for analysis. The patient tolerated the procedure well without apparent acute complications. IMPRESSION: 1. Successful left thoracentesis yielding 600 cc serosanguineous/brennan fluid. No evidence of significant fluid right pleural space.
[2025-04-27] MEDS: diltiazem 30mg tablet PO SCH (20:00)
--- NOTE | 2025-04-27 20:12 | RADIOLOGY REPORT ---
EXAM: DI ABDOMEN,SINGLE VIEW(KUB) HISTORY: constipation COMPARISON: DI ABDOMEN,SINGLE VIEW(KUB) on DOS: 04/26/25 TECHNIQUE: Supine view of the abdomen FINDINGS/IMPRESSION: Moderate to severe stool burden. Correlate for constipation. Imaging findings similar to prior examination 04/26/25.
[2025-04-27 20:34] LABS: BF WBC COUNT 8250 /CU MM (0-1000); BFAPPEAR BLOODY; BFCOLOR RED; BFSOURCE LEFT PLEURAL FLD; BFVOLUME 50 ML
[2025-04-27 20:35] LABS: BF MESOTHELIAL CELLS MODERATE; BF RBC COUNT 57250 /CU MM; LYMPHOCYTES,BODY FLUID 92 %; MONOCYTES,BODY FLUID 2 %; NEUTROPHILS,BODY FLUID 6 %
[2025-04-27] MEDS: bisacodyl 5mg tablet.DR PO SCH (21:15)
[2025-04-27] MEDS ORDERED: MELA3CAP2 PO (22:32)
[2025-04-28] VITALS (22 sets, daily range): BP systolic 90–124; BP diastolic 57–70; PULSE 77–103; RESP 10–26; TEMP 97–98.7; O2SAT 94–100
[2025-04-28 06:48] LABS: MEAN PLATELET VOLUME 8.5 FL (7.4-10.4); RED CELL DISTRIBUTION WIDTH 16.3 % (11.5-14.5)
[2025-04-28 07:33] LABS: CREATININE 1.09 MG/DL (0.40-0.90); eCRCL 43 ML/MIN; eGFR 49 ML/MIN
[2025-04-28 07:41] LABS: TOTAL CARBON DIOXIDE 41.9 MMOL/L (24-32)
[2025-04-28] MEDS: docusate sod 100mg capsule PO SCH ×2 (08:22→19:37)
[2025-04-28] MEDS: mineral oil 133ml enema RC SCH (08:24)
--- NOTE | 2025-04-28 12:36 | RADIOLOGY REPORT ---
Date: 04/28/2025 11:32 AM Examination: DI ABDOMEN,SINGLE VIEW(KUB) History: large stool burden Comparison: DI ABDOMEN,SINGLE VIEW(KUB) on DOS: 04/27/25, DI ABDOMEN,SINGLE VIEW(KUB) on DOS: 04/26/25, DI ABDOMEN,SINGLE VIEW(KUB) on DOS: 04/24/25, DI ABDOMEN,SINGLE VIEW(KUB) on DOS: 04/23/25 TECHNIQUE: Frontal views of the abdomen was obtained. FINDINGS: Bowel gas pattern is unremarkable. The lung bases are unremarkable. No acute osseous abnormality identified. IMPRESSION: Nonobstructive bowel gas pattern. Large stool burden.
--- NOTE | 2025-04-28 18:23 | RADIOLOGY REPORT ---
Indication: Large stool burden Technique: DI ABDOMEN,SINGLE VIEW(KUB)[id number] Comparison: None FINDINGS/IMPRESSION: Limited examination. Upper abdomen nonvisualized. Multiple loops of distended bowel with moderate large volume stool throughout the colon.
--- NOTE | 2025-04-28 18:42 | PROGRESS NOTE- Residence ---
Progress Note - Resident Providers to CC Resident Creating Document: LISANDRO OWEN RES CC: ERASMO GUSTAFSON MD ~ Antibiotic Timeout Antibiotic Ordered?: Yes Subjective Patient was seen and examined bedside. Patient has had still not had a bowel movement despite significant bowel prep. Complains of mild cramping abdominal pain. Patient underwent right-sided thoracentesis yesterday and was drained about 600 mL of serosanguineous fluid Objective Vital Signs Date Time Temp Pulse Resp B/P (MAP) Pulse Ox O2 Delivery O2 Flow Rate FiO2 04/28/25 15:00 98.1 91 10 90/57 (68) 94 Nasal Cannula 2.0 04/28/25 12:10 28 Result Diagram: 04/28/2537 04/28/25636 General: Patient was awake alert oriented to time place and person HEENT: Conjunctive are pink, sclerae clear, no icterus, pupil is equal in both sides, reactive to light, no ear discharge, no pharyngeal erythema or an edema. Neck: Supple, no JVD, no lymphadenopathy and thyromegaly. Chest: Equal air entry on both lungs, decreased breath sounds heard in bilateral basilar region, no additional sounds no rhonchi no wheezing at the moment. Cardiovascular: S1-S2 heard, irregular rhythm,ejection systolic murmur heard in aortic area Abdomen: No visible peristalsis, sluggish bowel sounds present on auscultation, diffuse tenderness present, no guarding, no rigidity; abdomen appears distended Extremities: No obvious deformities, no pitting edema bilaterally, capillary refill intact, peripheral pulsations are intact on both sides;age related bruises noted on left forearm,chronic venous stasis noted on left lower extremity Neurologic: Mental status: alert and conscious, oriented to place, person and time, preserved memory, normal speech. Cranial nerves I-XII: Normal. Motor system: Preserved power, coordination, no evidenced involuntary movements, strength in upper extremities 4/5, strength in lower extremities 2/5 Sensory system: Preserved temperature, pain and vibration sensation. 2+ deep tendon reflexes in biceps, triceps, quadriceps. Negative Babinski. Cerebellar: No nystagmus, dysdiadochokinesia, normal [id number] testing. Musculoskeletal: No joint swelling, deformities, inflammations, and no scoliosis and back tenderness Skin: Warm and dry. Dry oral mucosa. Coagulation Studies Laboratory Tests Test 04/23/25 11:49 Prothrombin Time 12.1 SECONDS (9.0-12.0) H INR International Normalized Ratio 1.2 INR Activated Partial Thromboplast Time 30 SECONDS (22-32) Coagulation Comments Advance Care Planning Advanced Care plannin - 30 Minutes Assessment Assessment 79-year-old female with history of AFib, LESLIE, morbid obesity, hypothyroidism, HFpEF, COPD and type 2 diabetes mellitus admitted for management of constipation. 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 On examination, sluggish bowel sounds heard Plan Continue lactulose 20 g q.2h, continue Miralax 17 g h.s, Metamusil 5.8 gm b.i.d. initiated the patient on senna p.o. b.i.d. and Dulcolax p.o. 5 mg once daily , docusate sodium 100 mg b.i.d. Ordered scheduled mineral oil enema Continue ciprofloxacin 500 mg q.12h and metronidazole 500 mg q.12h and Culturelle Continue the patient on rifaximin 550 mg b.i.d. Held her home medication Atarax Acute on chronic type 2 respiratory failure Secondary to COPD Patient is on a baseline oxygen of 2 L Continue Solu-Medrol 40 mg b.i.d. Continue breathing treatments DuoNeb q.4h scheduled and albuterol q.2h p.r.n. Already on antibiotics for her proctocolitis Acute on chronic congestive heart failure with normal ejection fraction of 50% Pleural effusion- transudative effusion(light's criteria was not met) 600 mL of serosanguineous fluid was drained from patient's right lung yesterday Significant elevation proBNP from 800 to 3000 Previous echo in November 2024 shows LVEF of 50%, mild left ventricle concentric hypertrophy, RVSP of 58 mmHg Repeat echocardiogram done yesterday reported, EF of 65-70% Chest x-ray was done which showed Infiltrates in the mid to lower lungs and bilateral pleural effusions likely due to CHF. Cardiomegaly and atherosclerotic vascular disease. Pulmonary arterial hypertension. Plan Continue Lasix 20 mg b.i.d. Hypokalemia Mild decrease in potassium, 3.3 Replacing per protocol History of UTIs with positive cultures of Klebsiella, MRSA in the past Urinalysis is negative for UTI Previous urine cultures in February 2025 grew Klebsiella, August and September 2024 grew MRSA, hence patient is in isolation Abdomen CT shows bladder wall hyperemia with surrounding stranding which could be secondary to cystitis Atrial fibrillation, rate controlled Reduced dosage of metoprolol tartrate to 25 mg BID and continued Cardizem 30 mg BID Continue Eliquis 5 mg BID Anemia of chronic disease Patient's hemoglobin is at 9.8, MCV normal, RDW normal Patient's iron, TIBC is low, %saturation within normal limits, ferritin elevated Continue to monitor patient's hemoglobin Transfuse if hemoglobin drops below seven Type 2 diabetes mellitus Patient has had well-controlled HbA1c in the last 10 years, except one time it was elevated at 6.3 Likely patient does not have type 2 diabetes mellitus, does not take any medication for that Hypertension Blood pressure is on the soft side Reduced dosage of metoprolol tartrate to 25 mg BID Hyperlipidemia ASCVD score unable to calculate due to age LDL 62, triglycerides elevated at 160 Continued home medication atorvastatin 20 mg Recommend outpatient follow up and encourage fish oil supplements Hypothyroidism TSH is elevated-20.37 Free T4 is normal Increased patient's home medication levothyroxine to 125 mcg Recommend repeating TSH level after six weeks outpatient Obstructive sleep apnea Continue CPAP Obesity BMI- 29.5 kg/m2 Code status: Full code DVT prophylaxis: Eliquis Pain management: Acetaminophen p.r.n. Diet/nutrition: Carb controlled diet Prognosis: Guarded Disposition: We will continue to monitor the patient. The patient does not have a bowel movement tonight, we will order CT abdomen with oral contrast Resident attestation: The patient note has been reviewed and supervised by senior residents PGY-2/ PGY-3. Lisandro Owen MD Internal Medicine resident, PGY-1 Date of Service: Apr 28, 2025 Billing Provider: ERASMO GUSTAFSON MD, JAHNAVI, RES Apr 28, 2025 18:42
--- NOTE | 2025-04-28 19:28 | RADIOLOGY REPORT ---
US ULTRASOUND KIDNEY NON VASC HISTORY: Large stool burden COMPARISON: US ULTRASOUND KIDNEY NON VASC on DOS: 07/24/23 TECHNIQUE: Sonographic grayscale and color doppler evaluation of the kidneys and urinary bladder was performed. FINDINGS: Significantly limited evaluation RIGHT: Unable to visualize LEFT: Unable to visualize BLADDER: Prevoid bladder volume significantly distended measuring 1075 mL OTHER: None IMPRESSION: 1. Limited evaluation. Nonvisualization of the kidneys. 2. Prevoid bladder volume significantly distended. Correlate for urinary retention.
[2025-04-28] MEDS: bisacodyl 10mg suppository rectal RC STA (19:37)
[2025-04-28] MEDS: LidoCAINE 2% Topical Jelly 11mL syringe (UROJET) TOP ONE (22:07)
[2025-04-28 23:15] LABS: OCCULT BLOOD STOOL NEGATIVE (Neg)
[2025-04-29] VITALS (16 sets, daily range): BP systolic 103–121; BP diastolic 41–67; PULSE 82–94; RESP 16–21; TEMP 96.7–97.8; O2SAT 94–100
[2025-04-29 07:52] LABS: MEAN PLATELET VOLUME 8.5 FL (7.4-10.4); RED CELL DISTRIBUTION WIDTH 16.4 % (11.5-14.5)
[2025-04-29] MEDS ORDERED: lactulose 20gm/30ml cup PO SCH (08:00)
[2025-04-29 08:07] LABS: CREATININE 1.13 MG/DL (0.40-0.90); eCRCL 41 ML/MIN; eGFR 47 ML/MIN
[2025-04-29 08:09] LABS: TOTAL CARBON DIOXIDE 42.9 MMOL/L (24-32)
[2025-04-29] MEDS: potassium Cl 20 mEq SR tablet PO SCH (08:49)
[2025-04-29] MEDS: methylPREDNISolone sod succ/PF 40mg inj. IV SCH (09:02)
[2025-04-29] MEDS: albuterol 2.5 MG/3 ML nebule NEB PRN (11:19)
[2025-04-29 11:23] LABS: OSMOLALITY 302 MOSM/K (280-300)
--- NOTE | 2025-04-29 11:35 | PROGRESS NOTE- Residence ---
Progress Note - Resident Providers to CC Resident Creating Document: RUBA OWEN RES CC: ERASMO GUSTAFSON MD ~ Antibiotic Timeout Antibiotic Ordered?: Yes MRSA Education MRSA Education Provided to pt: Yes Subjective Patient was seen and examined bedside. Patient had two large bowel movements yesterday, she stated that her abdominal pain has decreased significantly compared to yesterday. She feels much better compared to yesterday Objective Vital Signs Date Time Temp Pulse Resp B/P (MAP) Pulse Ox O2 Delivery O2 Flow Rate FiO2 04/29/25 08:00 85 04/29/25 08:00 18 99 Nasal Cannula 2.0 04/29/25 07:49 28 04/29/25 02:00 97.6 103/41 (61) Result Diagram: 04/29/25 0741 04/29/25 0741 General: Patient was awake alert oriented to time place and person HEENT: Conjunctive are pink, sclerae clear, no icterus, pupil is equal in both sides, reactive to light, no ear discharge, no pharyngeal erythema or an edema. Neck: Supple, no JVD, no lymphadenopathy and thyromegaly. Chest: Equal air entry on both lungs, decreased breath sounds heard in bilateral basilar region, no additional sounds no rhonchi no wheezing at the moment. Cardiovascular: S1-S2 heard, irregular rhythm,ejection systolic murmur heard in aortic area Abdomen: No visible peristalsis, sluggish bowel sounds present on auscultation, no guarding, rigidity, no tenderness noted Extremities: No obvious deformities, no pitting edema bilaterally, capillary refill intact, peripheral pulsations are intact on both sides;age related bruises noted on left forearm,chronic venous stasis noted on left lower extremity Neurologic: Mental status: alert and conscious, oriented to place, person and time, preserved memory, normal speech. Cranial nerves I-XII: Normal. Motor system: Preserved power, coordination, no evidenced involuntary movements, strength in upper extremities 4/5, strength in lower extremities 2/5 Sensory system: Preserved temperature, pain and vibration sensation. 2+ deep tendon reflexes in biceps, triceps, quadriceps. Negative Babinski. Cerebellar: No nystagmus, dysdiadochokinesia, normal [id number] testing. Musculoskeletal: No joint swelling, deformities, inflammations, and no scoliosis and back tenderness Skin: Warm and dry. Dry oral mucosa. Coagulation Studies Laboratory Tests Test 11/15/25 11:49 Prothrombin Time 12.1 SECONDS (9.0-12.0) H INR International Normalized Ratio 1.2 INR Activated Partial Thromboplast Time 30 SECONDS (22-32) Coagulation Comments Advance Care Planning Advanced Care plannin - 30 Minutes Assessment Assessment 79-year-old female with history of AFib, LESLIE, morbid obesity, hypothyroidism, HFpEF, COPD and type 2 diabetes mellitus admitted for management of constipation. 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 On examination, sluggish bowel sounds heard Plan Continue lactulose 20 g q.4h continue Miralax 17 g h.s, Metamusil 5.8 gm b.i.d. initiated the patient on senna p.o. b.i.d. and Dulcolax p.o. 5 mg once daily , docusate sodium 100 mg b.i.d. Continue MiraLax enema Continue ciprofloxacin 500 mg q.12h(day three) and metronidazole 500 mg q.12h(day 5) and Culturelle Continue the patient on rifaximin 550 mg b.i.d.(day five) Held her home medication Atarax Acute on chronic type 2 respiratory failure Secondary to COPD, CO2 narcosis Patient is on a baseline oxygen of 2 L during the day and continue BiPAP at night Decreased patient's Solu-Medrol to 20 mg b.i.d. Continue breathing treatments DuoNeb q.4h scheduled and albuterol q.2h p.r.n. Already on antibiotics for her proctocolitis Acute on chronic congestive heart failure with normal ejection fraction of 50% Based on light's criteria-transudative effusion was noted 600 mL of serosanguineous fluid was drained from patient's right lung Significant elevation proBNP from 800 to 3000 Previous echo in November 2024 shows LVEF of 50%, mild left ventricle concentric hypertrophy, RVSP of 58 mmHg Repeat echocardiogram done yesterday reported, EF of 65-70% Chest x-ray was done which showed Infiltrates in the mid to lower lungs and bilateral pleural effusions likely due to CHF. Cardiomegaly and atherosclerotic vascular disease. Pulmonary arterial hypertension. Plan Continue Lasix 20 mg b.i.d., metoprolol tartrate 12.5 mg b.i.d. Did not initiated the patient on any Jardiance as her blood pressure is on the softer side OVIDIO likely prerenal vasomotor nephropathy Patient had an elevation of creatinine from 0.8 to 1.13 Plan Ordered urine lytes, Patient is on Lasix 20 mg b.i.d. as she is still not diuresing well We will continue to monitor her creatinine Hypokalemia Mild decrease in potassium, 3.3 Replacing per protocol History of UTIs with positive cultures of Klebsiella, MRSA in the past Urinalysis is negative for UTI Previous urine cultures in February 2025 grew Klebsiella, August and September 2024 grew MRSA, hence patient is in isolation Abdomen CT shows bladder wall hyperemia with surrounding stranding which could be secondary to cystitis Atrial fibrillation, rate controlled Reduced dosage of metoprolol tartrate to 12.5 mg BID and continued Cardizem 30 mg BID Continue Eliquis 5 mg BID Anemia of chronic disease Patient's hemoglobin is at 9.8, MCV normal, RDW normal Patient's iron, TIBC is low, %saturation within normal limits, ferritin elevated Continue to monitor patient's hemoglobin Transfuse if hemoglobin drops below seven Type 2 diabetes mellitus Patient has had well-controlled HbA1c in the last 10 years, except one time it was elevated at 6.3 Likely patient does not have type 2 diabetes mellitus, does not take any medication for that Hypertension Blood pressure is on the soft side Reduced dosage of metoprolol tartrate to 12.5 mg BID Hyperlipidemia ASCVD score unable to calculate due to age LDL 62, triglycerides elevated at 160 Continued home medication atorvastatin 20 mg Recommend outpatient follow up and encourage fish oil supplements Hypothyroidism TSH is elevated-20.37 Free T4 is normal Increased patient's home medication levothyroxine to 125 mcg Recommend repeating TSH level after six weeks outpatient Obstructive sleep apnea Continue CPAP Obesity BMI- 29.5 kg/m2 Code status: Full code DVT prophylaxis: Eliquis Pain management: Acetaminophen p.r.n. Diet/nutrition: Carb controlled diet Prognosis: Guarded Disposition: We will continue to monitor the patient. Patient's blood pressure appears to be soft, keeping a close eye on that. Patient will likely get discharged tomorrow if her vitals are stable Resident attestation: The patient note has been reviewed and supervised by senior residents PGY-2/ PGY-3. Ruba Owen MD Internal Medicine resident, PGY-1 Date of Service: Apr 29, 2025 Billing Provider: ERASMO GUSTAFSON MD, JAHNAVI, RES Apr 29, 2025 11:35
--- NOTE | 2025-04-29 11:48 | RADIOLOGY REPORT ---
Exam: DI ABDOMEN,SINGLE VIEW(KUB) Indication: CONSTIPATION Comparison: DI ABDOMEN,SINGLE VIEW(KUB) on DOS: 04/28/25, DI ABDOMEN,SINGLE VIEW(KUB) on DOS: 04/28/25, DI ABDOMEN,SINGLE VIEW(KUB) on DOS: 04/27/25, DI ABDOMEN,SINGLE VIEW(KUB) on DOS: 04/26/25, DI ABDOMEN,SINGLE VIEW(KUB) on DOS: 04/24/25 Technique: For radiographic views of the abdomen. Findings: Nonobstructive bowel gas pattern noted. Large volume colonic stool. There is no definite evidence for pneumoperitoneum. No abnormal calcifications noted. Impression: Large volume colonic stool.
[2025-04-29 12:01] LABS: PRO BRAIN NATRIURETIC PEPTIDE 3127 PG/ML (0-450)
[2025-04-29] MEDS: lactulose 20gm/30ml cup PO SCH (12:23)
[2025-04-29] MEDS: bisacodyl 10mg suppository rectal RC ONE (19:36)
[2025-04-29 19:54] LABS: CREATININE 1.10 MG/DL (0.40-0.90); eCRCL 43 ML/MIN; eGFR 48 ML/MIN
[2025-04-29 20:36] LABS: TOTAL CARBON DIOXIDE 43.6 MMOL/L (24-32)
[2025-04-29] MEDS: potassium Cl 20 mEq SR tablet PO PRN (21:11)
[2025-04-30] VITALS (15 sets, daily range): BP systolic 107–120; BP diastolic 62; PULSE 84–109; RESP 16–26; TEMP 96.7; O2SAT 95–99
[2025-04-30 07:33] LABS: MEAN PLATELET VOLUME 8.5 FL (7.4-10.4); RED CELL DISTRIBUTION WIDTH 16.5 % (11.5-14.5)
[2025-04-30 08:00] LABS: CREATININE 1.00 MG/DL (0.40-0.90); eCRCL 47 ML/MIN; eGFR 54 ML/MIN
[2025-04-30 08:06] LABS: TOTAL CARBON DIOXIDE 41.3 MMOL/L (24-32)
--- NOTE | 2025-04-30 16:21 | DISCHARGE SUMMARY-Residence ---
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, improvement in mentation Constipation likely due to proctocolitis Acute on chronic type 2 respiratory failure Secondary to COPD, CO2 narcosis Acute on chronic congestive heart failure with normal ejection fraction of 50% Based on light's criteria-transudative effusion was noted OVIDIO likely prerenal vasomotor nephropathy Hypokalemia History of UTIs with positive cultures of Klebsiella, MRSA in the past Atrial fibrillation, rate controlled Anemia of chronic disease Type 2 diabetes mellitus Hypertension Hyperlipidemia Hypothyroidism Obstructive sleep apnea Obesity Operations\Procedures: S/P left thoracentesis with 600cc serosang/brennan fluid removed Consultants: Dr. Dipesh Templeton MD interventional radiology Complications: None Condition on DC: Stable for transfer Discharge Summary: HPI as per admitting physician 79-year-old female with history of atrial fibrillation, LESLIE, morbid obesity, hypothyroidism, hypertension, hyperlipidemia, hypothyroidism, HFpEF, COPD, type 2 DM presented to the ED from [facility] with complaints of constipation and abdominal pain. She states that her last bowel movement was around 7 days ago and she feels that she has not been passing gas. She denies nausea and vomiting. She has decreased appetite and has 1 meal a day. She states that she has tried laxatives and enemas but nothing seems to work. She denies abdominal pain at the moment and does not recall when she had it. According to previous medical records, she was here in the ER on April 21 for constipation, and she had a bowel movement while waiting in the emergency department. I called the and he stated that she was in pain all night and he described it as intermittent diffuse abdominal pain with no radiation which started around 2 days ago. She also reports pain in rectal area but does not remember since when. She denies melena, hematochezia and hematemesis. She and her does not recall when her last colonoscopy was. She reports having burning micturition but denies fever and chills. She denies chest pain, palpitations, shortness of breath, falls. Her baseline oxygen is 2 L at home for COPD. She lives at [facility] She states that she uses a walker but her says that she is bedridden She states that she does not have a primary care doctor Hospital course: 79-year-old female presented to ED from [facility] acute care with complaints of constipation and abdominal pain, patient underwent abdominal x-ray which s howed, significant stool burden. Patient underwent CT abdomen which showed large volume stool throughout colon and rectal/and will thickening suggestive of proctocolitis. Patient required multiple medications for her constipation to be relieved, she was on lactulose, MiraLax Metamucil, Dulcolax and docusate, in addition she also received multiple MiraLax enemas. Soapsuds enema worked the best with the patient. Patient was also initiated on antibiotics ciprofloxacin and metronidazole for proctocolitis. During the stay patient had decrease in mentation likely hepatic encephalopathy secondary to decompensated liver cirrhosis, we treated her appropriately with lactulose and rifaximin she slowly regained her mentation. Patient also developed acute on chronic type 2 respiratory failure secondary to her COPD, she required BiPAP she had metabolic acidosis, she required continuous BiPAP and was eventually transitioned to 2 L oxygen, we initiated the patient on Solu-Medrol 40 mg b.i.d. and later decreased to 20 mg b.i.d., sending the patient home with tapering dose of steroids. Patient also developed acute on chronic congestive heart failure with normal ejection fraction of 50%, patient's chest x-ray showed bilateral pleural effusion and a proBNP elevated, we consulted IR team who drained about 600 mL of serosanguineous fluid from patient's right lung, transudative effusion was noted. Treated the patient appropriately with Lasix 20 mg b.i.d. for patient's congestive heart failure preserved ejection fraction, we treated the patient with metoprolol tartrate 12.5 mg b.i.d.(decreased her dosage from her home medication of 25 mg as her blood pressure was soft), continued her Jardiance 10 mg. Patient also developed OVIDIO likely prerenal vasomotor nephropathy, her creatinine came down slowly to her baseline. During the stay patient had, potassium levels oscillating between hypokalemia and hyperkalemia, on admission it was stabilized. Patient's history of atrial fibrillation, which was rate controlled during the stay with metoprolol tartrate 12.5 mg b.i.d. and Cardizem 30 mg b.i.d., continued home medication Eliquis 5 mg b.i.d. patient has a history of hyperlipidemia we continued her home medication atorvastatin 20 mg Has a history of hypothyroidism are TSH was elevated significantly, we increased her levothyroxine to 125 mcg and recommended outpatient repeat of thyroid profile after six weeks every six weeks Significant imaging Abdominal x-ray 04/23/2025 Large stool burden Abdominal/pelvic CT 04/23/2025 Large volume stool throughout the colon. Rectal/ anal wall thickening. Correlate for proctocolitis. Small bilateral pleural effusions, [id number] bibasilar atelectasis/ consolidation. Bladder wall hyperemia with surrounding stranding which could be secondary to cystitis. Liver capsule nodular morphology may represent cirrhosis. There are perisplenic varices. Chest x-ray 04/27/2025 Large volume stool throughout the colon. Cardiomegaly and Bibasilar pulmonary airspace opacities, pulmonary vascular congestion. Moderate bilateral pleural effusions. No evidence for free intraperitoneal air. Multiple abdominal x-rays done on: 04/24/2025, 04/26/2025, 04/27/2025, 04/28/2025 Reported large bowel burden Physical examination the time of discharge General: Patient was awake alert oriented to time place and person HEENT: Conjunctive are pink, sclerae clear, no icterus, pupil is equal in both sides, reactive to light, no ear discharge, no pharyngeal erythema or an edema. Neck: Supple, no JVD, no lymphadenopathy and thyromegaly. Chest: Equal air entry on both lungs, decreased breath sounds heard in bilateral basilar region, no additional sounds no rhonchi no wheezing at the moment. Cardiovascular: S1-S2 heard, irregular rhythm,ejection systolic murmur heard in aortic area Abdomen: No visible peristalsis, sluggish bowel sounds present on auscultation, no guarding, rigidity, no tenderness noted Extremities: No obvious deformities, no pitting edema bilaterally, capillary refill intact, peripheral pulsations are intact on both sides;age related bruises noted on left forearm,chronic venous stasis noted on left lower extremity Neurologic: Mental status: alert and conscious, oriented to place, person and time, preserved memory, normal speech. Cranial nerves I-XII: Normal. Motor system: Preserved power, coordination, no evidenced involuntary movements, strength in upper extremities 4/5, strength in lower extremities 2/5 Sensory system: Preserved temperature, pain and vibration sensation. 2+ deep tendon reflexes in biceps, triceps, quadriceps. Negative Babinski. Cerebellar: No nystagmus, dysdiadochokinesia, normal [id number] testi ng. Musculoskeletal: No joint swelling, deformities, inflammations, and no scoliosis and back tenderness Skin: Warm and dry. Dry oral mucosa. Vital Signs Date Time Temp Pulse Resp B/P (MAP) Pulse Ox O2 Delivery O2 Flow Rate FiO2 04/30/25 14:45 98 20 Nasal Cannula 1.0 04/30/25 14:35 96 24 04/30/25 02:00 96.7 107/62 (77) Laboratory Tests Test 04/28/25 22:54 04/29/25 07:41 04/29/25 19:13 04/30/25 07:09 Stool Occult Blood Negative White Blood Count 13.7 X10'3 11.6 X10'3 Red Blood Count 3.48 X10'6 3.49 X10'6 Hemoglobin 10.4 g/dl 10.4 g/dl Hematocrit 32.1 % 32.3 % Mean Corpuscular Volume 92.0 FL 92.8 FL Mean Corpuscular Hemoglobin 29.7 PG 29.8 PG Mean Corpuscular Hemoglobin Concent 32.3 g/dL 32.1 g/dL Red Cell Distribution Width 16.4 % 16.5 % Platelet Count 214 X10'3 215 X10'3 Mean Platelet Volume 8.5 FL 8.5 FL Neutrophils (%) (Auto) 86.2 % 83.3 % Lymphocytes (%) (Auto) 6.6 % 7.7 % Monocytes (%) (Auto) 7.1 % 8.9 % Eosinophils (%) (Auto) 0 % 0 % Basophils (%) (Auto) 0.1 % 0.1 % Neutrophils # (Auto) 11.8 X10'3 9.7 X10'3 Lymphocytes # (Auto) 0.9 X10'3 0.9 X10'3 Monocytes # (Auto) 1.0 X10'3 1.0 X10'3 Eosinophils # (Auto) 0.0 X10'3 0.0 X10'3 Basophils # (Auto) 0.0 X10'3 0.0 X10'3 CBC Comment Sodium Level 145 MMOL/L 145 MMOL/L 145 MMOL/L Potassium Level 3.4 MMOL/L 3.0 MMOL/L 3.9 MMOL/L Chloride Level 98 MMOL/L 98 MMOL/L 99 MMOL/L Carbon Dioxide Level 42.9 MMOL/L 43.6 MMOL/L 41.3 MMOL/L Anion Gap 4 3 5 Blood Urea Nitrogen 17 MG/DL 20 MG/DL 20 MG/DL Creatinine 1.13 MG/DL 1.10 MG/DL 1.00 MG/DL Estimated GFR/1.73 m2 47 ML/MIN 48 ML/MIN 54 ML/MIN BUN/Creatinine Ratio 15.0 18.2 20.0 Glucose Level 159 MG/DL 188 MG/DL 150 MG/DL Osmolality 302 MOSM/K Calcium Level 9.1 MG/DL 9.1 MG/DL 9.1 MG/DL Total Bilirubin 0.4 MG/DL 0.4 MG/DL 0.4 MG/DL Aspartate Amino Transf (AST/SGOT) 24 U/L 24 U/L 23 U/L Alanine Aminotransferase (ALT/SGPT) 21 U/L 21 U/L 22 U/L Alkaline Phosphatase 76 IU/L 75 IU/L 74 IU/L Pro-B-Type Natriuretic Peptide 3127 PG/ML Total Protein 5.9 G/DL 5.7 G/DL 5.8 G/DL Albumin 2.6 G/DL 2.5 G/DL 2.6 G/DL Globulin 3.3 G/DL 3.2 G/DL 3.2 G/DL Albumin/Globulin Ratio 0.8 0.8 0.8 Chemistry Comments Test 04/30/25 11:33 Glucometer 168 mg/dl Discharge advise RPA MD to assume care Complete your antibiotic course as prescribed Use BiPAP during nights as well as naps during the morning Please note we have increased your levothyroxine to 125 mcg from 100 mcg, and recheck your thyroid profile in the next 4-6 weeks Note we have decreased her metoprolol to 12.5 mg b.i.d. and Cardizem to 30 mg b.i.d. Follow up with the primary care doctor Return to ED in case of worsening shortness of breath, palpitations or chest pain *Problems/Diagnosis: (1) OVIDIO (acute kidney injury) Status: Acute (2) Sleep apnea Status: Acute (3) Atrial fibrillation (4) Hypotension Status: Acute (5) Hypothyroidism (6) Acute hypoxic respiratory failure Status: Acute (7) Morbidly obese Status: Chronic (8) CHF (congestive heart failure) Status: Chronic (9) Proctocolitis Status: Acute (10) Obesity hypoventilation syndrome Status: Acute (11) Constipation Status: Acute Total Time Spent on D/C: > 30 Minutes Date of Service: Apr 30, 2025 Billing Provider: ERASMO GUSTAFSON MD, JAHNAVI, RES Apr 30, 2025 15:53
== END 2025-04-30 19:11 | DRG 432 ==
LOC: ER 18:21 → ED HOLD 04-23 10:14 → ORTHO 4S 04-23 12:10 → PCU 3S 04-26 17:50
PROVIDERS: ADMIT Family Medicine; ATTEND Family Medicine
PROC: BW211ZZ Computerized Tomography (CT Scan) of Abdomen and Pelvis using Low Osmolar Contrast (ICD-10-PCS; 2025-04-23)
PROC: 5A09357 Assistance with Respiratory Ventilation, Less than 24 Consecutive Hours, Continuous Positive Airway Pressure (ICD-10-PCS; 2025-04-25)
PROC: 05HF33Z Insertion of Infusion Device into Left Cephalic Vein, Percutaneous Approach (ICD-10-PCS; 2025-04-25)
PROC: B54NZZA Ultrasonography of Left Upper Extremity Veins, Guidance (ICD-10-PCS; 2025-04-25)
PROC: 5A09357 Assistance with Respiratory Ventilation, Less than 24 Consecutive Hours, Continuous Positive Airway Pressure (ICD-10-PCS; 2025-04-26)
PROC: 0W9B3ZX Drainage of Left Pleural Cavity, Percutaneous Approach, Diagnostic (ICD-10-PCS; principal; 2025-04-27)
PROC: 5A09357 Assistance with Respiratory Ventilation, Less than 24 Consecutive Hours, Continuous Positive Airway Pressure (ICD-10-PCS; 2025-04-27)
PROC: 5A09357 Assistance with Respiratory Ventilation, Less than 24 Consecutive Hours, Continuous Positive Airway Pressure (ICD-10-PCS; 2025-04-28)
PROC: 5A09357 Assistance with Respiratory Ventilation, Less than 24 Consecutive Hours, Continuous Positive Airway Pressure (ICD-10-PCS; 2025-04-29)
DX: K74.69 Other cirrhosis of liver (principal); I50.33 Acute on chronic diastolic (congestive) heart failure; N17.0 Acute kidney failure with tubular necrosis; J96.21 Acute and chronic respiratory failure with hypoxia; I11.0 Hypertensive heart disease with heart failure; J91.8 Pleural effusion in other conditions classified elsewhere; Z79.01 Long term (current) use of anticoagulants; E11.9 Type 2 diabetes mellitus without complications; E66.9 Obesity, unspecified; K76.82 Hepatic encephalopathy; J44.9 Chronic obstructive pulmonary disease, unspecified; E89.0 Postprocedural hypothyroidism; F03.90 Unspecified dementia, unspecified severity, without behavioral disturbance, psychotic disturbance, mood disturbance, and anxiety; K51.30 Ulcerative (chronic) rectosigmoiditis without complications; E78.00 Pure hypercholesterolemia, unspecified; K59.00 Constipation, unspecified; K62.89 Other specified diseases of anus and rectum; J43.9 Emphysema, unspecified; I48.91 Unspecified atrial fibrillation; Z90.710 Acquired absence of both cervix and uterus; Z85.3 Personal history of malignant neoplasm of breast; Z88.5 Allergy status to narcotic agent; Z79.899 Other long term (current) drug therapy; Z79.84 Long term (current) use of oral hypoglycemic drugs; Z90.49 Acquired absence of other specified parts of digestive tract; Z68.29 Body mass index [BMI] 29.0-29.9, adult
CPT/HCPCS: 32555; 36410; 36415; 36600; 71045; 74018; 74177; 76770; 76937; 80048; 80053; 80061; 81003; 82140; 82272; 82728; 82803; 82945; 82948; 83036; 83540; 83550; 83605; 83615; 83735; 83880; 83930; 83986; 84100; 84132; 84145; 84155; 84157; 84439; 84443; 85018; 85025; 85045; 85610; 85730; 86885; 86900; 86901; 87070; 87081; 89051; 93005; 93306; 94640; 94660; 94760; 96365; 99283; 99285; A4314; A5200; A6213; A6250; A6258; A6449; C1729; C1751; G0378; J0612; J0744; J1815; J1938; J2405; J2919; J3373; J3490; J7030; Q0177; Q9967